=== PATIENT | male | born 1970 | race Caucasian/White ===

== ENCOUNTER → 2020-10-24 11:12 | Outpatient (CLI) | payer OTHER, SELFPAY ==
[2020-10-24 11:58] LABS: Hemoglobin A1C% w Est Avg Glu 10.3 % (4.0-6.0)
[2020-10-24 12:21] LABS: Alanine Aminotransferase 35 IU/L (<50); Albumin 4.5 g/dL (3.5-5.0); Albumin Globulin Ratio 1.6 (1.0-2.8); Alkaline Phosphatase 59 U/L (38-126); Aspartate Aminotransferase 23 IU/L (17-59); Bilirubin Total 0.4 mg/dL (0.2-1.3); Blood Urea Nitrogen 15 mg/dL (9-20); Carbon Dioxide 29 mmol/L (22-32); Chloride 98 mmol/L (98-107); Cholesterol 202 mg/dL (140-199); Estimated Glomerular Filt Rate > 60.0 mL/min (>60); Globulin 2.9 g/dL (1.7-4.1); Glucose 280 mg/dL (70-100); HDL Cholesterol 34 mg/dL (40-60); HEMOLYSIS < 15 (0-50); Potassium 4.6 mmol/L (3.4-5.1); Sodium 136 mmol/L (137-145); Total Protein 7.4 g/dL (6.3-8.2); Uric Acid 7.7 mg/dL (3.5-8.5)
[2020-10-24 12:37] LABS: Triglycerides 692 mg/dL (35-150)
[2020-10-24 12:45] LABS: Creatinine Urine Random 299.4 mg/dL
[2020-10-24 12:48] LABS: Microalbumi Creatinin Ratio Ur 28.3 ug/mg CR (<30); Microalbumin Urine Random 8.5 mg/dL (0-1.6)
== END ==
PROVIDERS: PCP Student in an Organized Health Care Education/Training Program; Referring Provider Student in an Organized Health Care Education/Training Program; Visit Provider Student in an Organized Health Care Education/Training Program
DX: E11.9 Type 2 diabetes mellitus without complications (principal); F10.20 Alcohol dependence, uncomplicated; I10 Essential (primary) hypertension; M10.9 Gout, unspecified
CPT/HCPCS: 36415; 80053; 80061; 82043; 82570; 83036; 84550

== ENCOUNTER → 2020-11-08 15:32 | Outpatient (CLI) | payer OTHER, SELFPAY ==
[2020-11-08 16:32] LABS: BUN Creatinine Ratio 17.9 (6-22); Blood Urea Nitrogen 30 mg/dL (9-20); Estimated Glomerular Filt Rate 43.3 mL/min (>60)
[2020-11-12 02:10] LABS: Metanephrine,Plasma 11.8 pg/mL (0.0-88.0)
== END ==
PROVIDERS: PCP Student in an Organized Health Care Education/Training Program; Referring Provider Student in an Organized Health Care Education/Training Program; Visit Provider Student in an Organized Health Care Education/Training Program
DX: E11.42 Type 2 diabetes mellitus with diabetic polyneuropathy (principal); E11.69 Type 2 diabetes mellitus with other specified complication; E78.5 Hyperlipidemia, unspecified; Z79.899 Other long term (current) drug therapy; I16.1 Hypertensive emergency
CPT/HCPCS: 36415; 80061; 80076; 82565; 83036; 83835; 84520

== ENCOUNTER → 2020-12-06 09:41 | Outpatient (CLI) | payer OTHER, SELFPAY ==
[2020-12-06 11:35] LABS: Appearance Urine UA CLEAR; BUN Creatinine Ratio 22.1 (6-22); Bilirubin Urine UA NEGATIVE (NEGATIVE); Blood Urea Nitrogen 19 mg/dL (9-20); Color Urine UA YELLOW; Estimated Glomerular Filt Rate > 60.0 mL/min (>60); Glucose Urine UA NEGATIVE (Negative); Ketones Urine UA NEGATIVE (NEGATIVE); Leukocyte Esterase Urine UA NEGATIVE (NEGATIVE); Nitrite Urine UA NEGATIVE (Negative); Occult Blood Urine UA 2+ (Negative); Protein Urine UA NEGATIVE (Negative); Specific Gravity Urine UA >=1.030 (1.000-1.035); Urobilinogen Urine UA 0.2 E.U./dL (0.2)
[2020-12-06 11:36] LABS: Bacteria Urine None Seen; WBC Urine None Seen (0-5/HPF)
[2020-12-06 11:42] LABS: Amorphous Sediment Urine 2+; Culture Indicated Urine Cult Not Indicated; RBC Urine 0-1/HPF (0-5/HPF)
== END ==
PROVIDERS: PCP Student in an Organized Health Care Education/Training Program; Referring Provider Student in an Organized Health Care Education/Training Program; Visit Provider Student in an Organized Health Care Education/Training Program
DX: E11.42 Type 2 diabetes mellitus with diabetic polyneuropathy (principal); N17.9 Acute kidney failure, unspecified
CPT/HCPCS: 36415; 80061; 80076; 81003; 81015; 82565; 83036; 84520

== ENCOUNTER 2021-01-22 09:40 | Day surgery (SDC) | payer OTHER, SELFPAY ==
[2021-01-22 10:14] VITALS: BP 148/91; PULSE 72; RESP 18; TEMP 36.2; O2SAT 98; BMI 35.1
[2021-01-22 10:57] LABS: COVID19 -Nasal RAPID Negative (Negative)
--- NOTE | 2021-01-22 11:04 | PM.HP.1 ---
History of Present Illness History of Present Illness Date Patient Seen: 01/22/21 Time Patient Seen: 11:04 Chief complaint: SCREENING COLONOSCOPY Narrative: The patient presents for colorectal sreening. They have never had any previous examination for such. No personal or family history of colon cancer. On further history denies any recent gastrointestinal symptoms. No nausea, vomiting, abdominal pain, loss of appetite, unexplained weight loss, change in bowel habits, diarrhea, constipation, melena, hematochezia, or bright red blood per rectum. Patient History Medical History ADHD (~1978) Alcoholism in remission Essential hypertension (01/27/17) Hematuria Hyperlipidemia associated with type 2 diabetes mellitus Hypertensive emergency Obesity (BMI 30.0-34.9) Type 2 diabetes mellitus Family & Social History Family History Mother Diabetes mellitus History of heart disease Hypertension Grandfather Cancer Hypertension Grandmother History of heart disease Grandfather Hypertension History of heart disease Social History: household members spouse Tobacco & Substance use: Smoking Status Former smoker alcohol intake current alcohol intake frequency 0-2 drinks per day Substance Use Type marijuana Meds Home Medications and Allergies Home Medications Medication Instructions Recorded Confirmed Type aspirin 81 mg tablet,delayed 81 mg PO DAILY 10/24/20 01/22/21 History release metformin 500 mg tablet 1,000 mg PO BID tab 10/24/20 01/22/21 History glipizide 10 mg tablet, extended 10 mg PO DAILY #90 tab 10/27/20 01/22/21 Rx release 24 hr pravastatin 20 mg tablet 20 mg PO BEDTIME #90 tab 10/27/20 01/22/21 Rx lisinopril 10 mg tablet 10 mg PO DAILY #30 tab 12/19/20 01/22/21 Rx Allergies Allergy/AdvReac Type Severity Reaction Status Date / Time No Known Drug Allergies Allergy Verified 01/22/21 10:50 Review of Systems Review of Systems ROS: Yes All systems reviewed with the patient and are negative except as otherwise documented Exam Vital Signs (past 8 hours): - 01/22/21 10:14 Temperature 97.2 F L Pulse Rate 72 Respiratory Rate 18 Blood Pressure 148/91 H Pulse Oximetry 98 Oxygen Delivery Method Room Air Narrative Exam Narrative: GENERAL-well developed adult male, no acute distress HEENT-no scleral icterus, hearing intact NECK-no JVD, trachea midline CVS- regular rate, no peripheral edema RESP-unlabored respiratory effort, no audible wheezing GI-soft, nontender nondistended MSK-no cyanosis or clubbing, extremities without deformity SKIN-warm, dry NEURO-alert and oriented, no focal deficits PYSCH-Appropriate mood and affect Objective Labs Labs: Laboratory Results - last 24 hr 01/22/21 10:23 SARS-CoV-2 (PCR) Negative Assessment & Plan Assessment & Plan narrative: The patient requires colorectal screening and colonoscopy is recommended. Technical details were discussed. Risks, benefits, alternatives explained. Risks including but not limited to myocardial infarction, aspiration, bleeding, pain, missed lesion, incomplete examination, need for further radiographic studies, colonic perforation, and need for major abdominal surgery were discussed. All questions were answered to their satisfaction, and they are in agreement with this plan.
[2021-01-22] MEDS: fentaNYL 250 MCG/5 ML INJ IV (11:20)
[2021-01-22] MEDS: MIDAZOLAM 5 MG/5 ML VIAL IV (11:20)
[2021-01-22 11:35] VITALS: BP 110/64; PULSE 91; RESP 17; TEMP 36.1; O2SAT 88
--- NOTE | 2021-01-22 11:37 | PM.OP.ENDO ---
Operative Date/Time/Diagnoses Date of procedure: 01/22/21 Time of procedure: 11:37 Pre-op diagnosis: Screening colonoscopy Post-op diagnosis: same Procedure & Clinicians Study performed: Colonoscopy Same procedure as scheduled: Yes Indications: Screening colonoscopy Surgeon: Valeriy Dash Procedure Notes Procedure in detail: Medications: Conscious sedation using 8 mg IV midazolam and 200 mcg IV of fentanyl The history and physical was performed/updated and the patient is ASA class is 2. The procedure was discussed in detail with the patient. Potential risks complications including infection, bleeding, missed diagnosis, perforation, need for surgery, and were explained. Their questions were answered and informed consent was obtained. Patient was brought to the procedure room and placed standard monitoring equipment. The patient's vital signs were monitored continuously throughout the entire procedure. Prior to starting time-out was performed. The patient was placed in the left lateral recumbent position. Procedural sedation was administered. Examination began with a thorough inspection of the perianal area there was no evidence of fissures, fistulae, external hemorrhoids or cutaneous malignancy. The colonoscopy scope was then placed into the anal canal and was advanced to the cecum, which was identified by the ileocecal valve, the appendiceal orifice and the confluence of the taenia. The scope was then slowly withdrawn examining colon thoroughly in all directions, irrigating it of any residual stool. 1. No masses or polyps 2. Sigmoid diverticulosis 3. Grade 2 internal hemorrhoids The patient tolerated the procedure well. They will be discharged once criteria are met. The prep was of fair quality. The withdrawl time was 6 minutes. The sedation time was 20 minutes. Specimen(s): none sent Complications: none Impression: Normal colonoscopy Post-procedure Recommendations: Colonscopy in 10 years Disposition: same day surgery
[2021-01-22 11:40] VITALS: BP 106/59; PULSE 85; RESP 12; O2SAT 94
[2021-01-22 11:45] VITALS: BP 116/75; PULSE 99; RESP 16; O2SAT 96
[2021-01-22 11:50] VITALS: BP 124/71; PULSE 93; RESP 14; O2SAT 94
[2021-01-22 11:55] VITALS: BP 117/62; PULSE 94; RESP 94; O2SAT 14
== END 2021-01-22 12:10 | disposition home or self-care (01) ==
PROVIDERS: PCP Student in an Organized Health Care Education/Training Program; Referring Provider Surgery; Visit Provider Surgery
PROC: 0DJD8ZZ Inspection of Lower Intestinal Tract, Via Natural or Artificial Opening Endoscopic (ICD-10-PCS; CPT 45378; principal; 2021-01-22 10:45)
DX: Z12.11 Encounter for screening for malignant neoplasm of colon (principal); Z20.822 Contact with and (suspected) exposure to COVID-19; E11.9 Type 2 diabetes mellitus without complications; Z79.84 Long term (current) use of oral hypoglycemic drugs; I10 Essential (primary) hypertension; E66.9 Obesity, unspecified; E78.5 Hyperlipidemia, unspecified; K57.30 Diverticulosis of large intestine without perforation or abscess without bleeding; K64.1 Second degree hemorrhoids
CPT/HCPCS: 45378; 82962; 87635; 99152; J2250; J3010

== ENCOUNTER → 2021-05-14 10:12 | Outpatient (CLI) | payer OTHER, SELFPAY ==
[2021-05-14 12:11] LABS: Alanine Aminotransferase 42 IU/L (<50); Albumin 4.4 g/dL (3.5-5.0); Albumin Globulin Ratio 1.6 (1.0-2.8); Alkaline Phosphatase 39 U/L (38-126); Aspartate Aminotransferase 30 IU/L (17-59); Bilirubin Total 0.7 mg/dL (0.2-1.3); Bilirubin Unconjugated 0.7 mg/dL (0.0-1.1); Cholesterol 180 mg/dL (140-199); Globulin 2.8 g/dL (1.7-4.1); HDL Cholesterol 39 mg/dL (40-60); HEMOLYSIS < 15 (0-50); LDL Cholesterol Calculated 93 mg/dL (<100); Total Protein 7.2 g/dL (6.3-8.2); Triglycerides 241 mg/dL (35-150)
[2021-05-14 12:19] LABS: Hemoglobin A1C% w Est Avg Glu 6.6 % (4.0-6.0)
== END ==
PROVIDERS: PCP Student in an Organized Health Care Education/Training Program; Referring Provider Student in an Organized Health Care Education/Training Program; Visit Provider Student in an Organized Health Care Education/Training Program
DX: E11.42 Type 2 diabetes mellitus with diabetic polyneuropathy (principal); E66.9 Obesity, unspecified; I10 Essential (primary) hypertension
CPT/HCPCS: 36415; 80061; 80076; 83036

== ENCOUNTER → 2021-11-02 11:01 | Outpatient (CLI) | payer OTHER, SELFPAY ==
[2021-11-02 18:47] LABS: BUN Creatinine Ratio 20.5 (6-22); Blood Urea Nitrogen 18 mg/dL (9-20); Estimated Glomerular Filt Rate > 60.0 mL/min (>60)
[2021-11-02 18:50] LABS: Hemoglobin A1C% w Est Avg Glu 7.6 % (4.0-6.0)
[2021-11-02 19:13] LABS: Microalbumi Creatinin Ratio Ur 33.6 ug/mg CR (<30)
== END ==
PROVIDERS: PCP Student in an Organized Health Care Education/Training Program; Visit Provider Student in an Organized Health Care Education/Training Program
DX: E11.42 Type 2 diabetes mellitus with diabetic polyneuropathy (principal); I10 Essential (primary) hypertension
CPT/HCPCS: 82043; 82565; 82570; 83036; 84520

== ENCOUNTER 2022-10-23 10:21 | Emergency (ER) | payer OTHER, SELFPAY ==
[2022-10-23] VITALS (15 sets, daily range): BP systolic 92–123; BP diastolic 54–67; PULSE 90–120; RESP 24–36; TEMP 37.8; O2SAT 96–100; BMI 34.0
--- NOTE | 2022-10-23 10:59 | DI.RAD.S_ITS ---
PROCEDURE: XR CHEST 1V INDICATIONS: suspected sepsis TECHNIQUE: One view of the chest was acquired. COMPARISON: None. FINDINGS: Surgical changes and devices: None. Lungs and pleura: Lungs are clear. No pleural effusions or pneumothorax. Mediastinum: Mediastinal contours appear normal. Heart size is normal. Bones and chest wall: No suspicious bony lesions. Overlying soft tissues appear unremarkable. IMPRESSION: No acute cardiopulmonary pathology. Dictated by: Jeff Rodgers M.D. on 10/23/2022 at 11:26 Approved by: Jeff Rodgers M.D. on 10/23/2022 at 11:33
[2022-10-23 11:25] LABS: Add Manual Diff / Slide Review NO; Basophils Absolute Auto 100 /uL (0-100); Basophils Percent Auto 0.5 % (0-2); Eosinophils Absolute Auto 0 /uL (0-450); Eosinophils Percent Auto 0.1 % (2-4); Hematocrit 25.1 % (41-53); Hemoglobin 8.2 g/dL (13.5-17.5); Lymphocytes Absolute Auto 500 /uL (1100-4500); Lymphocytes Percent Auto 3.7 % (25-40); Mean Corpuscular HGB Conc 32.5 % (30-36); Mean Corpuscular Volume 79.8 fL (80-100); Monocytes Absolute Auto 1400 /uL (0-900); Monocytes Percent Auto 11.6 % (3-14); Neutrophils Absolute Auto 10500 /uL (1500-7000); Neutrophils Percent Auto 84.1 % (50-75); Platelet Count 283 X10^3/uL (150-400); Red Blood Cell Count 3.14 X10^6/uL (4.5-5.9); Red Cell Distribution Width 17.2 % (11.6-14.8); White Blood Cell Count 12.5 X10^3/uL (4.5-11.0)
[2022-10-23 11:32] LABS: INR 1.2 (0.9-1.3); Prothrombin Time 14.3 SECONDS (10.1-12.7)
[2022-10-23 11:34] LABS: PTT Partial Thromboplastin Tim 29 SECONDS (26-36)
[2022-10-23 11:38] LABS: Alanine Aminotransferase 108 IU/L (<50); Albumin 3.8 g/dL (3.5-5.0); Alkaline Phosphatase 113 U/L (38-126); Aspartate Aminotransferase 81 IU/L (17-59); BUN Creatinine Ratio 15.6 (6-22); Bilirubin Total 0.6 mg/dL (0.2-1.3); Blood Urea Nitrogen 41 mg/dL (9-20); Calcium 8.8 mg/dL (8.4-10.2); Carbon Dioxide 16 mmol/L (22-32); Chloride 89 mmol/L (98-107); Estimated Glomerular Filt Rate 28 mL/min (>60); Globulin 3.9 g/dL (1.7-4.1); Glucose 397 mg/dL (70-100); HEMOLYSIS < 15 (0-50); Lactate (Lactic Acid) 1.6 mmol/L (0.7-2.1); Lipase 164 U/L (23-300); Potassium 4.6 mmol/L (3.4-5.1); Sodium 120 mmol/L (137-145); Total Protein 7.7 g/dL (6.3-8.2)
[2022-10-23 11:53] LABS: Procalcitonin 21.8 ng/mL (<0.5)
[2022-10-23 12:08] LABS: HCO3 VBG 17 mmol/L (24-28); Oxygen Saturation VBG 81 % (70-75); PCO2 VBG 26.2 mmHg (45-50); PO2 VBG 43 mmHg (35-45); Total CO2 VBG 17 mmol/L (24-29); pH VBG 7.41 (7.33-7.43)
[2022-10-23 12:26] LABS: COVID19 -Nasal RAPID Negative (Negative)
[2022-10-23] MEDS: SODIUM CHLORIDE 0.9% 1,000 ML 1000 ML IV (12:44)
--- NOTE | 2022-10-23 12:45 | ED.SEPSIS ---
HPI - Sepsis General Chief Complaint: Fever Mode of arrival: Family Vehicle Source: patient Limitations: no limitations Evaluation Sepsis Screen: Possible Sepsis Risk Sepsis Infection Criteria Present: Suspected New Infection Narrative: This is a 52-year-old male with history of diabetes, hypertension, dyslipidemia who is had a persistent chronic wound for several weeks according to the patient. He states his great toe and the ball of his foot have had a wound he is had redness, he is had drainage which he states is purulent, foul-smelling and he drains 3 or 4 times daily. Patient states he has been trying to clean it regularly and bandaged. He can walk on he states it is not very uncomfortable. States he does have decreased sensation in his feet. Patient has not seen anyone for this. 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 Patient states he has not had any fevers. He denies chest pain or shortness of breath. He is had some nausea but no vomiting. Denies diarrhea constipation, no dysuria urgency frequency. He denies any abdominal or flank pain. He has had some chronic back pain which he states is his typical. He states he is not on insulin and he mentions that his medications are lisinopril, metformin, pravastatin and glucosamine. He denies any prior surgeries. No known drug allergies. He denies tobacco he states occasional alcohol but not regularly. No illicit. Primary care is Dr. Low. He is quite reluctant to be hospitalized today secondary to having to run his business and his dog is currently in his car. Review of Systems Review of Systems ROS Unobtainable: All systems reviewed & are unremarkable except as noted in HPI and below Patient History Medical History ADHD (~1978) Alcoholism in remission Essential hypertension (01/27/17) Hematuria Hyperlipidemia associated with type 2 diabetes mellitus Hypertensive emergency Obesity (BMI 30.0-34.9) Type 2 diabetes mellitus Family History Mother Diabetes mellitus History of heart disease Hypertension Grandfather Cancer Hypertension Grandmother History of heart disease Grandfather Hypertension History of heart disease Social History household members: spouse Smoking Status: Former smoker alcohol intake: current Smoking Status: Former smoker tobacco type: cigarettes alcohol intake frequency: holidays/special occasions only Substance Use Type: does not use Exam Narrative Exam Narrative: GENERAL: Alert and oriented x three, male in moderate distress. Patient is anxious about being hospitalized. He has multiple concerns about his business and dog. HEENT: Head normocephalic, atraumatic, EOMI, pupils reactive, face symmetric, moist mucous membranes NECK: Supple, full range of motion CARDIOVASCULAR: Regular rate and rhythm without murmurs, rubs or gallops. RESPIRATORY: Breath sounds equal bilaterally, no wheezes rales or rhonchi. No tachypnea accessory muscle use. ABDOMEN: Soft, nontender. Normoactive bowel sounds all 4 quadrants. No guarding or rebound, rigidity, no mass : No CVA tenderness EXTREMITIES: Normal range of motion, no clubbing. Patient has mild trace edema bilaterally. Patient's left foot he has a large ulcer on the bottom of his foot that is approximately 3-4 cm in circumference that appears deep into the subcutaneous bone is not clearly exposed there is purulent drainage and a foul odor. The distal end of the great toe has breakdown of the skin with discoloration but no complete right down into the subcutaneous tissue or bone. Patient has erythema tracking from the underside of the foot over the dorsum towards his ankle. He is nontender. He does have cap refill less than 2 seconds. He has normal range of motion. NEUROLOGICAL: Cranial nerves II through XII grossly intact. Moving all extremities SKIN: Warm, dry, no petechiae, no rashes or lesions other than noted above. Initial Vital Signs Initial Vital Signs: Vital Signs Temperature 100.1 F H 10/23/22 10:53 Pulse Rate 120 H 10/23/22 10:53 Respiratory Rate 24 10/23/22 10:53 Blood Pressure 92/59 L 10/23/22 10:53 Pulse Oximetry 100 10/23/22 10:53 Oxygen Delivery Method Room Air 10/23/22 10:53 Course Orders Ordered: ED Orders 10/23/22 10:54 VBG [Venous Blood Gas] Stat 10/23/22 10:59 XR chest 1V Stat EKG-12 Lead Stat RT Consult Eval and Treat NOW 10/23/22 11:15 Complete Blood Count AUTO DIFF Stat Comprehensive Metabolic Panel Stat Lactate (Lactic Acid) Stat Lipase Stat PTT Partial Thromboplastin Enoch Stat Procalcitonin Stat Prothrombin Time INR Stat 10/23/22 11:34 Blood Culture Stat 10/23/22 12:02 COVID19 -Nasal RAPID Stat 10/23/22 12:07 Consult to [employer] WORK[employer] SUPERVISOR - Senior Data Integration Developer Stat 10/23/22 13:00 XR foot LT min 3V Stat 10/23/22 13:05 US renal complete Stat 10/23/22 13:09 Wound Culture and Gram Stain Stat 10/23/22 14:47 Creatinine Urine Random Stat Sodium Urine Random Stat UA Complete [Urinalysis and Microscopic] Stat Urine Culture Stat Discontinued Medications Sodium Chloride (Normal Saline 0.9%) 1,000 mls @ 1,000 mls/hr IV BOLUS ONE Stop: 10/23/22 11:58 Last Infusion: 10/23/22 16:27 Dose: 0 mls/hr Documented By: Admin: 10/23/22 12:44 Dose: 1,000 mls/hr Documented By: SALVADOR Vancomycin HCl/Dextrose (Vancomycin) 1,500 mg in 300 mls @ 200 mls/hr IV NOW ONE Stop: 10/23/22 14:34 Last Infusion: 10/23/22 16:27 Dose: 200 mls/hr Documented By: Admin: 10/23/22 14:36 Dose: 200 mls/hr Documented By: SANDRA Piperacillin Sod/Tazobactam (Sod 4.5 gm/ Sodium Chloride) 100 mls @ 200 mls/hr IV NOW ONE Stop: 10/23/22 13:06 Last Infusion: 10/23/22 14:09 Dose: 0 mls/hr Documented By: Admin: 10/23/22 13:37 Dose: 200 mls/hr Documented By: SALVADOR Ondansetron HCl (Ondansetron 4 Mg Odt) 4 mg SL NOW PRN PRN Reason: Nausea And Vomiting Ondansetron HCl (Ondansetron 4 Mg/2 Ml Inj) 4 mg IV NOW PRN PRN Reason: Nausea And Vomiting Vital Signs Vital signs: Vital Signs - 8 hr 10/23/22 12:00 10/23/22 12:00 10/23/22 12:30 Pulse Rate 104 H Respiratory Rate Blood Pressure 94/55 L 105/65 Pulse Oximetry 97 10/23/22 12:30 10/23/22 13:00 10/23/22 13:00 Pulse Rate 102 H 97 H Respiratory Rate Blood Pressure 113/67 Pulse Oximetry 96 98 10/23/22 13:30 10/23/22 13:30 10/23/22 14:00 Pulse Rate 96 H Respiratory Rate Blood Pressure 113/66 114/66 Pulse Oximetry 97 10/23/22 14:00 10/23/22 14:30 10/23/22 14:30 Pulse Rate 97 H 102 H Respiratory Rate Blood Pressure 110/62 Pulse Oximetry 10/23/22 15:00 10/23/22 15:00 10/23/22 15:30 Pulse Rate 90 Respiratory Rate 24 Blood Pressure 115/60 123/65 Pulse Oximetry 10/23/22 15:30 10/23/22 16:00 10/23/22 16:01 Pulse Rate 91 H 99 H 98 H Respiratory Rate 33 H 36 H 30 H Blood Pressure Pulse Oximetry 10/23/22 16:01 10/23/22 16:15 10/23/22 16:15 Pulse Rate 93 H Respiratory Rate Blood Pressure 97/54 L 108/59 L Pulse Oximetry 98 Sepsis Evaluation (ED) Triage Screening Sepsis Screen: Possible Sepsis Risk Level 1 - Infection Sepsis Infection Criteria Present: Suspected New Infection Level 2 - SIRS Sepsis SIRS Criteria Present: WBC < 4k or > 12k or Bands > 10% and Pulse > 90 bpm Response It is my opinion that his patient have a likely infectious etiology for meeting sepsis criteria: Does Fluid calculation based on 30 mL/kg within 1hr of criteria: Other (Patient has a hyponatremia and 30 cc/kilos fluid bolus can be detrimental if overcorrected too quickly.) Antibiotics initiated within 1 hr of Sepis dx: Yes Tissue Perfusion Reassessed within 6 hrs of infusion start time: No (patient left ama) MDM - Sepsis Lab Data 10/23/22 11:15 10/23/22 11:15 Labs: Lab Results 10/23/22 10/23/22 10/23/22 Range/Units 10:54 11:15 11:15 WBC 12.5 H (4.5-11.0) X10^3/uL RBC 3.14 L (4.5-5.9) X10^6/uL Hgb 8.2 L (13.5-17.5) g/dL Hct 25.1 L (41-53) % MCV 79.8 L (80-100) fL MCH 26.0 (26-34) PG MCHC 32.5 (30-36) % RDW 17.2 H (11.6-14.8) % Plt Count 283 (150-400) X10^3/uL Neut % (Auto) 84.1 H (50-75) % Lymph % (Auto) 3.7 L (25-40) % Garvin % (Auto) 11.6 (3-14) % Eos % (Auto) 0.1 L (2-4) % Baso % (Auto) 0.5 (0-2) % Neut # (Auto) 17265 H (3883-1904) /uL Lymph # (Auto) 500 L (7460-3677) /uL Garvin # (Auto) 1400 H (0-900) /uL Eos # (Auto) 0 (0-450) /uL Baso # (Auto) 100 (0-100) /uL PT 14.3 H (10.1-12.7) SECONDS INR 1.2 (0.9-1.3) APTT 29 (26-36) SECONDS VBG pH 7.41 (7.33-7.43) VBG pCO2 26.2 L (45-50) mmHg VBG pO2 43 (35-45) mmHg VBG HCO3 17 L (24-28) mmol/L VBG Total CO2 17 L (24-29) mmol/L VBG O2 Saturation 81 H (70-75) % VBG Base Excess -8.0 L (0-4) mmol/L FiO2 20 Sodium (137-145) mmol/L Potassium (3.4-5.1) mmol/L Chloride (98-107) mmol/L Carbon Dioxide (22-32) mmol/L BUN (9-20) mg/dL Creatinine (0.66-1.25) mg/dL Estimated GFR (>60) mL/min BUN/Creatinine Ratio (6-22) Glucose (70-100) mg/dL Lactate (0.7-2.1) mmol/L Calcium (8.4-10.2) mg/dL Total Bilirubin (0.2-1.3) mg/dL AST (17-59) IU/L ALT (<50) IU/L Alkaline Phosphatase (38-126) U/L Total Protein (6.3-8.2) g/dL Albumin (3.5-5.0) g/dL Globulin (1.7-4.1) g/dL Albumin/Globulin Ratio (1.0-2.8) Lipase (23-300) U/L Procalcitonin (<0.5) ng/mL Urine Color Urine Appearance Urine pH (4.5-8.0) Ur Specific [place] (1.000-1.035) Urine Protein (Negative) Urine Glucose (UA) (Negative) g/dL Urine Ketones (NEGATIVE) Urine Occult Blood (Negative) Urine Nitrate (Negative) Urine Bilirubin (NEGATIVE) Urine Urobilinogen (0.2) E.U./dL Ur Leukocyte Esterase (NEGATIVE) Urine RBC (0-5/HPF) Urine WBC (0-5/HPF) Ur Squamous Epith Cells (0-5/HPF) Amorphous Sediment Urine Bacteria (None) Ur Culture Indicated? Ur Random Sodium (30-90) mmol/L Urine Creatinine mg/dL SARS-CoV-2 (PCR) (Negative) 10/23/22 10/23/22 10/23/22 Range/Units 11:15 11:15 12:02 WBC (4.5-11.0) X10^3/uL RBC (4.5-5.9) X10^6/uL Hgb (13.5-17.5) g/dL Hct (41-53) % MCV (80-100) fL MCH (26-34) PG MCHC (30-36) % RDW (11.6-14.8) % Plt Count (150-400) X10^3/uL Neut % (Auto) (50-75) % Lymph % (Auto) (25-40) % Garvin % (Auto) (3-14) % Eos % (Auto) (2-4) % Baso % (Auto) (0-2) % Neut # (Auto) (3255-1227) /uL Lymph # (Auto) (8532-6528) /uL Garvin # (Auto) (0-900) /uL Eos # (Auto) (0-450) /uL Baso # (Auto) (0-100) /uL PT (10.1-12.7) SECONDS INR (0.9-1.3) APTT (26-36) SECONDS VBG pH (7.33-7.43) VBG pCO2 (45-50) mmHg VBG pO2 (35-45) mmHg VBG HCO3 (24-28) mmol/L VBG Total CO2 (24-29) mmol/L VBG O2 Saturation (70-75) % VBG Base Excess (0-4) mmol/L FiO2 Sodium 120 L (137-145) mmol/L Potassium 4.6 (3.4-5.1) mmol/L Chloride 89 L (98-107) mmol/L Carbon Dioxide 16 L (22-32) mmol/L BUN 41 H (9-20) mg/dL Creatinine 2.62 H (0.66-1.25) mg/dL Estimated GFR 28 L (>60) mL/min BUN/Creatinine Ratio 15.6 (6-22) Glucose 397 H (70-100) mg/dL Lactate 1.6 (0.7-2.1) mmol/L Calcium 8.8 (8.4-10.2) mg/dL Total Bilirubin 0.6 (0.2-1.3) mg/dL AST 81 H (17-59) IU/L ALT 108 H (<50) IU/L Alkaline Phosphatase 113 (38-126) U/L Total Protein 7.7 (6.3-8.2) g/dL Albumin 3.8 (3.5-5.0) g/dL Globulin 3.9 (1.7-4.1) g/dL Albumin/Globulin Ratio 1.0 (1.0-2.8) Lipase 164 (23-300) U/L Procalcitonin 21.8 H (<0.5) ng/mL Urine Color Urine Appearance Urine pH (4.5-8.0) Ur Specific [place] (1.000-1.035) Urine Protein (Negative) Urine Glucose (UA) (Negative) g/dL Urine Ketones (NEGATIVE) Urine Occult Blood (Negative) Urine Nitrate (Negative) Urine Bilirubin (NEGATIVE) Urine Urobilinogen (0.2) E.U./dL Ur Leukocyte Esterase (NEGATIVE) Urine RBC (0-5/HPF) Urine WBC (0-5/HPF) Ur Squamous Epith Cells (0-5/HPF) Amorphous Sediment Urine Bacteria (None) Ur Culture Indicated? Ur Random Sodium (30-90) mmol/L Urine Creatinine mg/dL SARS-CoV-2 (PCR) Negative (Negative) 10/23/22 10/23/22 Range/Units 14:47 14:47 WBC (4.5-11.0) X10^3/uL RBC (4.5-5.9) X10^6/uL Hgb (13.5-17.5) g/dL Hct (41-53) % MCV (80-100) fL MCH (26-34) PG MCHC (30-36) % RDW (11.6-14.8) % Plt Count (150-400) X10^3/uL Neut % (Auto) (50-75) % Lymph % (Auto) (25-40) % Garvin % (Auto) (3-14) % Eos % (Auto) (2-4) % Baso % (Auto) (0-2) % Neut # (Auto) (3628-7388) /uL Lymph # (Auto) (4547-1301) /uL Garvin # (Auto) (0-900) /uL Eos # (Auto) (0-450) /uL Baso # (Auto) (0-100) /uL PT (10.1-12.7) SECONDS INR (0.9-1.3) APTT (26-36) SECONDS VBG pH (7.33-7.43) VBG pCO2 (45-50) mmHg VBG pO2 (35-45) mmHg VBG HCO3 (24-28) mmol/L VBG Total CO2 (24-29) mmol/L VBG O2 Saturation (70-75) % VBG Base Excess (0-4) mmol/L FiO2 Sodium (137-145) mmol/L Potassium (3.4-5.1) mmol/L Chloride (98-107) mmol/L Carbon Dioxide (22-32) mmol/L BUN (9-20) mg/dL Creatinine (0.66-1.25) mg/dL Estimated GFR (>60) mL/min BUN/Creatinine Ratio (6-22) Glucose (70-100) mg/dL Lactate (0.7-2.1) mmol/L Calcium (8.4-10.2) mg/dL Total Bilirubin (0.2-1.3) mg/dL AST (17-59) IU/L ALT (<50) IU/L Alkaline Phosphatase (38-126) U/L Total Protein (6.3-8.2) g/dL Albumin (3.5-5.0) g/dL Globulin (1.7-4.1) g/dL Albumin/Globulin Ratio (1.0-2.8) Lipase (23-300) U/L Procalcitonin (<0.5) ng/mL Urine Color Yellow Urine Appearance Sl cloudy Urine pH 5.0 (4.5-8.0) Ur Specific [place] 1.015 (1.000-1.035) Urine Protein 1+ H (Negative) Urine Glucose (UA) 2+ H (Negative) g/dL Urine Ketones Negative (NEGATIVE) Urine Occult Blood 3+ H (Negative) Urine Nitrate Negative (Negative) Urine Bilirubin Negative (NEGATIVE) Urine Urobilinogen 0.2 (0.2) E.U./dL Ur Leukocyte Esterase Negative (NEGATIVE) Urine RBC 10-30/hpf H (0-5/HPF) Urine WBC 5-10/hpf H (0-5/HPF) Ur Squamous Epith Cells 1-5 /hpf (0-5/HPF) Amorphous Sediment 3+ Urine Bacteria Moderate (10-30) H (None) Ur Culture Indicated? Specimen cultured Ur Random Sodium 12 L (30-90) mmol/L Urine Creatinine 124.1 mg/dL SARS-CoV-2 (PCR) (Negative) ECG Data Attestation: I personally reviewed and interpreted this ECG as follows: Interpretation: Sinus rhythm rate of 92 GA 176 QRS of 102 and QTC of 427. No acute ST changes appreciated. 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 Lives on [facility]. MDM Narrative Medical decision making narrative: This is a 52-year-old male who presents with complaint infection in his left foot. Patient has not obviously infected diabetic ulcer maybe developing an osteomyelitis based on his examination in the depth his of infection. Culture was sent, patient has a white count of 12, he is tachycardic 104 blood pressures have been soft in the 90s to 115 range, and a temperature of 100.1?. He is anemic with a hemoglobin of 8 no priors for baseline, leftward shift no bandemia appreciated on differential. Coags are negative, patient appears to have acute kidney injury a year ago his creatinine was 0.88 today it is 2.62 with a BUN of 41, bicarb of 16 sodium of 120 and were corrected for hyperglycemia as 125-127. Blood glucose is 397 on serum labs, VBG shows a pH of 7.41 so he is not acidotic but otherwise is meeting DKA criteria with a anion gap of 20 when sodium is corrected. Potassium is appropriate at 4.6 LFTs show [birth year]18/1980, alk-phos and lipase are negative. Procalcitonin is 21 lactate is negative at 1.6. Patient is COVID negative. Chest x-ray was negative. X-ray of the foot shows soft tissue swelling and gas consistent with infection and concerning, no definite bony erosion but probably needs MRI to fully evaluate. Renal ultrasound was obtained secondary to acute kidney injury, this shows mild echogenic renal cortices suggesting medical renal disease. No stones or hydro. Discussed with patient he appears to be septic, hyponatremic with hyperglycemia and does not have DKA but does have acidosis in terms of his bicarb although lactate is appropriate. Patient has multiple concerns about being admitted he realizes he needs treatment and IV antibiotics but would like to return in a couple days. We discussed that he could if we leave him untreated and these worsened including his sodium his glucoses in his infection and that he needs to go to the OR for washout and treatment. Patient does seem competent and appropriate to make these decisions at this time. He was agreeable to additional workup in the department. Wound culture has been sent to evaluate for resistance. Patient and I discussed he can return at any time he is currently leaving against medical advice but he has been informed by myself that he is welcome to return at any time and encouraged to do so as I think he requires admission, fluids, careful monitoring and treatment of his electrolyte abnormalities hypoglycemia sepsis and infection and I am concerned about osteomyelitis in his foot and possibly worsening infection as patient has gas. Patient once again expresses his understanding he does seem appropriate and able to make a decision to leave. Discharge Plan Departure Patient Disposition: Left Against Medical Advice Clinical Impression: Sepsis, Diabetic infection of left foot, Acute renal failure (ARF), Hyperglycemia, Hyponatremia Activity Restrictions/Additional Instructions: It is recommended that you be admitted today you have an infection in your foot that can potentially cause severe injury or over the long-term of the loss of your foot or leg. Your sodium levels very low and this can become dangerous as well either of these problems can kill you. You have been prescribed an antibiotic it is not going to solve or fix this problem today. Please come back as soon as you can or go to the closest emergency department you can not return here. Prescription was sent to [facility] in [place]. Even though you have left against medical advice you are welcome to return at any time for treatment. Prescriptions: New doxycycline hyclate 100 mg tablet 100 mg PO BID Qty: 20 0RF No Action lisinopril 10 mg tablet 10 mg PO DAILY Qty: 90 1RF glipizide 10 mg tablet extended release 24hr 10 mg PO DAILY Qty: 90 1RF Hold Instructions: Needs labs metformin 500 mg tablet 1,000 mg PO BID Qty: 360 1RF Hold Instructions: Needs labs pravastatin 20 mg tablet 20 mg PO BEDTIME Qty: 90 1RF Hold Instructions: Needs labs aspirin 81 mg tablet,delayed release (DR/EC) 81 mg PO DAILY Stand Alone Forms: Against Medical Advice
--- NOTE | 2022-10-23 13:00 | DI.RAD.S_ITS ---
PROCEDURE: XR FOOT LT MIN 3V INDICATIONS: infected wound foot, ball of foot TECHNIQUE: 3 views of the foot were acquired. COMPARISON: None. FINDINGS: Bones: No fractures or dislocations. No suspicious bony lesions. Calcaneal spurring. Soft tissues: There is soft tissue swelling and subcutaneous gas in the medial aspect of the distal left foot and great toe. No tibiotalar joint effusion. Achilles tendon appears normal. IMPRESSION: 1. No definitive bony erosion. Radiographs are, however, not sensitive to detect early osteomyelitis. Recommend MRI with and without contrast or a triple phase bone scan for further evaluation if there is clinical suspicion. 2. Soft tissue swelling and gas in the medial aspect of the distal foot and the great toe, consistent with infection. Dictated by: Daniel Cruz M.D. on 10/23/2022 at 13:28 Approved by: Daniel Cruz M.D. on 10/23/2022 at 13:32
--- NOTE | 2022-10-23 13:05 | DI.US.S_ITS ---
PROCEDURE: US RENAL COMPLETE INDICATIONS: saurav, sepsis, infected db wound foot TECHNIQUE: Real-time scanning was performed of the kidneys and bladder, with image documentation. COMPARISON: None. FINDINGS: Kidneys: Kidneys are normal in size. Right kidney measures 12.8 cm long; left kidney measures 12.5 cm long. Right renal cortical thickness is 1.6 cm; left renal cortical thickness is 1.4 cm. Renal cortices are mildly echogenic. No hydronephrosis or nephrolithiasis. No suspicious solid mass lesions. Bladder: Pre-void bladder volume is 233 mL. The patient did not void. Pre-void images demonstrate no intraluminal masses or stones. On pre-void images, left ureteral jet is noted with color Doppler interrogation. Right ureteral jet is not visualized. (Of note, ureteral jets may not be detectable in up to 25% of cases due to insufficient differences in specific gravity between ureteral and bladder urine). Miscellaneous: No free pelvic fluid. IMPRESSION: 1. Mildly echogenic renal cortices suggesting medical renal disease. 2. No stones or hydronephrosis. 3. Cannot assess postvoid residual. Dictated by: Daniel Cruz M.D. on 10/23/2022 at 13:25 Approved by: Daniel Cruz M.D. on 10/23/2022 at 13:27
[2022-10-23] MEDS: PIPERACILLIN/TAZO 4.5 GM in SODIUM CHLORIDE 0.9% 100 ML IV (13:37)
[2022-10-23] MEDS: VANCOMYCIN 1,500 MG/300 ML PIGGYBACK 200 MG IV (14:36)
[2022-10-23 14:54] LABS: Appearance Urine UA SL CLOUDY; Bilirubin Urine UA NEGATIVE (NEGATIVE); Color Urine UA YELLOW; Glucose Urine UA 2+ g/dL (Negative); Ketones Urine UA NEGATIVE (NEGATIVE); Leukocyte Esterase Urine UA NEGATIVE (NEGATIVE); Nitrite Urine UA NEGATIVE (Negative); Occult Blood Urine UA 3+ (Negative); Protein Urine UA 1+ (Negative); Specific Gravity Urine UA 1.015 (1.000-1.035); Urobilinogen Urine UA 0.2 E.U./dL (0.2)
[2022-10-23 15:19] LABS: Amorphous Sediment Urine 3+; Bacteria Urine Moderate (10-30); RBC Urine 10-30/HPF (0-5/HPF); Squamous Epithelial Cell Urine 1-5 /HPF (0-5/HPF); WBC Urine 5-10/HPF (0-5/HPF)
[2022-10-23 15:20] LABS: Culture Indicated Urine Specimen Cultured
[2022-10-23 16:08] LABS: Creatinine Urine Random 124.1 mg/dL; Sodium Urine Random 12 mmol/L (30-90)
--- NOTE | 2022-10-23 16:11 | CM.SWNOTE ---
ED DCP Note HANDICRAFT OR HOBBY SHOP MANAGER receives consult from RN due to patient's pending admission and patient endorsing preference to leave AMA due to his dog in his car and no dog care set up. Patient is 52 y/o male who resides on [facility] who presents to ED via POV due to concern for left foot leaking fluids. Patient's PCP is Dr. Lozada, patient has [employer] insurance Per ED provider, patient would preferably be admitted due to concern for Sepsis, Diabetic foot infection, ARF, Hyperglycemia, and Hyponatremia. HANDICRAFT OR HOBBY SHOP MANAGER enters room and offers resources and asks if that changes patient's plan of care preference. Patient denies resources and states that he can coordinate with his friends to care for his dog and patient endorses he plans to return to ED by Friday. Plan: Patient to d/c AMA and reports his plan is to return to ED as soon as he can after tending to his dog's and job needs. Sabrina Willis, DIE CAST SUPERVISOR
[2022-10-24 18:52] LABS: Acinetobacter baumannii Not Detected (Not Detect); Enterobacteriaceae species Not Detected (Not Detect); Enterococcus species Not Detected (Not Detect); Listeria monocytogenes Not Detected (Not Detect); Staphylococcus species Not Detected (Not Detect); Streptococcus agalactiae (Gr B Not Detected (Not Detect); Streptococcus pneumonia Not Detected (Not Detect); Streptococcus pyogenes (Gr A) Not Detected (Not Detect)
[2022-10-24 18:53] LABS: Candida albicans Not Detected (Not Detect); Candida glabrata Not Detected (Not Detect); Candida krusei Not Detected (Not Detect); Candida parapsilosis Not Detected (Not Detect); Candida tropicalis Not Detected (Not Detect); E. coli Not Detected (Not Detect); Enterobacter cloacae complex Not Detected (Not Detect); Haemophilus influenzae Not Detected (Not Detect); Neisseria meningitidis Not Detected (Not Detect); Proteus species Not Detected (Not Detect); Pseudomonas aeruginosa Not Detected (Not Detect); Serratia marcescens Not Detected (Not Detect)
[2022-10-24 18:55] LABS: Streptococcus species DETECTED (Not Detect)
[2022-10-25 11:10] LABS: Fractionated Inspired Oxygen 21
== END 2022-10-23 16:29 | disposition left against medical advice (07) ==
PROVIDERS: Emergency Provider Emergency Medicine; PCP Student in an Organized Health Care Education/Training Program
DX: A49.1 Streptococcal infection, unspecified site (principal); A41.9 Sepsis, unspecified organism; E11.628 Type 2 diabetes mellitus with other skin complications; R00.0 Tachycardia, unspecified; D64.9 Anemia, unspecified; N17.9 Acute kidney failure, unspecified; E11.65 Type 2 diabetes mellitus with hyperglycemia; E87.1 Hypo-osmolality and hyponatremia; Z20.822 Contact with and (suspected) exposure to COVID-19
CPT/HCPCS: 36415; 71045; 73630; 76770; 80053; 81001; 82570; 82805; 83605; 83690; 84145; 84300; 85025; 85610; 85730; 87040; 87070; 87075; 87077; 87086; 87147; 87150; 87185; 87186; 87205; 87635; 93005; 93010; 96365; 96366; 96367; 99284; C9803; J2543

== ENCOUNTER 2022-10-27 22:24 | Inpatient (IN) | payer OTHER, SELFPAY ==
--- NOTE | 2022-10-27 23:10 | DI.RAD.S_ITS ---
PROCEDURE: XR FOOT LT MIN 3V INDICATIONS: cellulitis TECHNIQUE: 3 views of the foot were acquired. COMPARISON: [facility], CR, XR FOOT LT MIN 3V, 10/23/2022, 13:11. FINDINGS: Bones: There are lucencies within the 1st metatarsal head with indistinct appearance of the cortex most prominent along the plantar aspect most likely representing osteomyelitis. No fractures or dislocations. Soft tissues: There is soft tissue swelling within the medial forefoot centered at the 1st metatarsophalangeal joint as well as the great toe with multiple foci of soft tissue gas. IMPRESSION: 1. Lucencies within the 1st metatarsal head with cortical erosions most likely representing osteomyelitis. 2. Soft tissue swelling of the medial forefoot including the great toe consistent with history of cellulitis. Foci of soft tissue gas are also demonstrated suggestive of gangrene. Dictated by: Braxton Delong M.D. on 10/28/2022 at 1:14 Approved by: Braxton Delong M.D. on 10/28/2022 at 1:25
--- NOTE | 2022-10-27 23:10 | DI.RAD.S_ITS ---
PROCEDURE: XR CHEST 1V INDICATIONS: sepsis TECHNIQUE: One view of the chest was acquired. COMPARISON: [facility], CR, XR CHEST 1V, 10/23/2022, 11:09. FINDINGS: Surgical changes and devices: None. Lungs and pleura: Lungs are clear. No pleural effusions or pneumothorax. Mediastinum: Mediastinal contours appear normal. Heart size is normal. Bones and chest wall: No suspicious bony lesions. Overlying soft tissues appear unremarkable. IMPRESSION: 1. No acute cardiopulmonary disease. Dictated by: Braxton Delong M.D. on 10/28/2022 at 1:14 Approved by: Braxton Delong M.D. on 10/28/2022 at 1:14
[2022-10-27 23:11] VITALS: BP 92/55; PULSE 101; RESP 16; TEMP 36.9; O2SAT 99; BMI 34.0
[2022-10-27 23:46] LABS: Add Manual Diff / Slide Review NO; Basophils Absolute Auto 0 /uL (0-100); Basophils Percent Auto 0.2 % (0-2); Eosinophils Absolute Auto 100 /uL (0-450); Eosinophils Percent Auto 0.4 % (2-4); Hematocrit 23.1 % (41-53); Hemoglobin 7.6 g/dL (13.5-17.5); Lymphocytes Absolute Auto 800 /uL (1100-4500); Lymphocytes Percent Auto 6.7 % (25-40); Mean Corpuscular HGB Conc 32.7 % (30-36); Mean Corpuscular Hemoglobin 26.1 PG (26-34); Monocytes Absolute Auto 900 /uL (0-900); Monocytes Percent Auto 7.3 % (3-14); Neutrophils Absolute Auto 10200 /uL (1500-7000); Neutrophils Percent Auto 85.4 % (50-75); Platelet Count 440 X10^3/uL (150-400); Red Blood Cell Count 2.89 X10^6/uL (4.5-5.9); Red Cell Distribution Width 17.4 % (11.6-14.8); White Blood Cell Count 11.9 X10^3/uL (4.5-11.0)
[2022-10-28] VITALS (36 sets, daily range): BP systolic 102–129; BP diastolic 53–77; PULSE 78–91; RESP 14–18; TEMP 36.3–37.5; O2SAT 88–98; BMI 34.0
[2022-10-28 00:03] LABS: Lactate (Lactic Acid) 1.1 mmol/L (0.7-2.1)
[2022-10-28 00:04] LABS: Alanine Aminotransferase 77 IU/L (<50); Albumin 3.5 g/dL (3.5-5.0); Albumin Globulin Ratio 0.9 (1.0-2.8); BUN Creatinine Ratio 15.8 (6-22); Bilirubin Total 1.1 mg/dL (0.2-1.3); Blood Urea Nitrogen 30 mg/dL (9-20); Calcium 8.6 mg/dL (8.4-10.2); Carbon Dioxide 15 mmol/L (22-32); Chloride 93 mmol/L (98-107); Creatine Kinase 71 U/L (55-170); Estimated Glomerular Filt Rate 42 mL/min (>60); Globulin 4.1 g/dL (1.7-4.1); Lipase 365 U/L (23-300); Magnesium 1.3 mg/dL (1.6-2.3); Sodium 120 mmol/L (137-145)
[2022-10-28 00:06] LABS: COVID19 -Nasal RAPID Negative (Negative)
[2022-10-28 00:08] LABS: Erythrocyte Sedimentation Rate 6 MM/HR (0-15); HEMOLYSIS 134 (0-50)
[2022-10-28 00:09] LABS: Potassium 5.9 mmol/L (3.4-5.1)
[2022-10-28 00:10] LABS: Alkaline Phosphatase 131 U/L (38-126); Aspartate Aminotransferase 78 IU/L (17-59)
[2022-10-28 00:11] LABS: Total Protein 7.6 g/dL (6.3-8.2)
[2022-10-28 00:16] LABS: Troponin I < 0.012 ng/mL (0.01-0.034)
[2022-10-28 00:23] LABS: Glucose 532 mg/dL (70-100)
--- NOTE | 2022-10-28 00:27 | ED_ITS ---
HPI - Skin/Abscess/Foreign Bdy <Neil Fernandez DO - Last Filed: 10/29/22 14:13> General Chief complaint: Skin/Abscess/Foreign Body Stated complaint: infected wound/back injury/blood infection Time Seen by Provider: 10/27/22 22:29 Source: patient Mode of arrival: Wheelchair History of Present Illness HPI narrative: 52-year-old male former smoker with history of poorly-controlled diabetes, peripheral neuropathy, hypertension, hyperlipidemia and recently diagnosed renal failure presents with a chief complaint of worsening left foot infection. He has been having some trouble with an infected wound on his left foot for a few months, but states he has had rapidly worsening swelling, discoloration for the past few days. He had presented here a few days ago and was set to be admitted but had to leave to find care for his dog and promised to return. He returns today, admittedly apologetic and states that he has been taking his antibiotics as directed but his foot certainly looks worse. On the whole he feels unwell and admits that he is fatigued, nauseated and has little energy. He has nausea but denies any vomiting. He has generalized body aches but denies any specific abdominal pain. Related Data Home Medications Medication Instructions Recorded Confirmed aspirin 81 mg tablet,delayed 81 mg PO DAILY 10/24/20 10/28/22 release Previous Rx's Medication Instructions Recorded lisinopril 10 mg tablet 10 mg PO DAILY #90 tabs 05/17/22 glipizide 10 mg tablet, extended 10 mg PO DAILY #90 tabs 06/06/22 release 24 hr metformin 500 mg tablet 1,000 mg PO BID #360 tabs 06/06/22 pravastatin 20 mg tablet 20 mg PO BEDTIME #90 tabs 07/16/22 doxycycline hyclate 100 mg tablet 100 mg PO BID #20 tabs 10/23/22 Allergies Allergy/AdvReac Type Severity Reaction Status Date / Time No Known Drug Allergies Allergy Verified 10/28/22 11:47 Review of Systems <Neil Fernandez DO - Last Filed: 10/29/22 14:13> Review of Systems Narrative: GENERAL: See HPI HEENT: Denies sinus pain, ear pain, sore throat, difficulty swallowing, dizziness. RESPIRATORY: Denies dyspnea, cough, wheezing, hemoptysis, sputum. CARDIOVASCULAR: Denies chest pain, palpitations, orthopnea, edema, GASTROINTESTINAL: Denies nausea, vomiting, abdominal pain, diarrhea, const ipation, melena. : Denies dysuria, frequency, incontinence, hematuria, urinary retention. MUSCULOSKELETAL: denies weakness, joint pain, or bony pain SKIN: See HPI NEUROLOGIC: See HPI PSYCHIATRIC: No concerning psychosocial issues. 12 point review of systems is negative except for those stated above Patient History <Neil Fernandez DO - Last Filed: 10/29/22 14:13> Medical History ADHD (~1978) Alcoholism in remission Essential hypertension (01/27/17) Hematuria Hyperlipidemia associated with type 2 diabetes mellitus Hypertensive emergency Obesity (BMI 30.0-34.9) Type 2 diabetes mellitus Surgical History No pertinent past surgical history Family History Mother Diabetes mellitus History of heart disease Hypertension Grandfather Cancer Hypertension Grandmother History of heart disease Grandfather Hypertension History of heart disease Social History household members: spouse Smoking Status: Former smoker alcohol intake: current Smoking Status: Former smoker tobacco type: cigarettes alcohol intake frequency: holidays/special occasions only Substance Use Type: does not use Exam <Neil Fernandez DO - Last Filed: 10/29/22 14:13> Narrative Exam Narrative: GENERAL: [52] year old patient appears stated age. Well-developed patient, in mild distress. HEAD: Atraumatic. Normocephalic. EYES: Pupils equal round and reactive. Extraocular motions intact. No scleral icterus. No injection or drainage. Pale conjunctiva ENT: Nose without bleeding, purulent drainage. Throat without erythema, tonsillar hypertrophy or exudate. Airway patent. NECK: Trachea midline. Non tender CARDIOVASCULAR: Regular rate and rhythm without murmurs, gallops, or rubs. RESPIRATORY: Clear to auscultation. Breath sounds equal bilaterally. No wheezes, rales, or rhonchi. GASTROINTESTINAL: Abdomen soft, non-tender, nondistended. EXTREMITIES: . 1+ pitting edema bilateral lower extremities. Large ulcer on plantar surface of left foot overlying the 1st metatarsal phalangeal joint, no obvious bone exposure, however there is foul-smelling drainage. There is noted edema and erythema and an intact, fluctuant, thinly roofed abscess at medial aspect of 1st MTP. Very little if any sensation BACK: Nontender without deformity or crepitance. No flank tenderness. NEURO: AOx3. SKIN: No rash or erythema of visible areas Initial Vital Signs Initial Vital Signs: Vital Signs Temperature 98.5 F 10/27/22 23:11 Pulse Rate 101 H 10/27/22 23:11 Respiratory Rate 16 10/27/22 23:11 Blood Pressure 92/55 L 10/27/22 23:11 Pulse Oximetry 99 10/27/22 23:11 Oxygen Delivery Method Room Air 10/27/22 23:11 <Gurinder Bryant DO - Last Filed: 10/28/22 11:59> Initial Vital Signs Initial Vital Signs: Vital Signs Temperature 98.5 F 10/27/22 23:11 Pulse Rate 101 H 10/27/22 23:11 Respiratory Rate 16 10/27/22 23:11 Blood Pressure 92/55 L 10/27/22 23:11 Pulse Oximetry 99 10/27/22 23:11 Oxygen Delivery Method Room Air 10/27/22 23:11 Course <Neil Fernandez, DO - Last Filed: 10/29/22 14:13> Orders Ordered: Aspirin (Aspirin Ec 81 Mg Tablet) 81 mg PO BID [facility] Atorvastatin Calcium (Atorvastatin 20 Mg Tablet) 20 mg PO BEDTIME [facility] Last Admin: 10/28/22 21:27 Dose: 20 mg Documented By: AM Dextrose (Dextrose 50 % In Water 25 Gm/50 Ml Syringe) 25 gm IV PRN PRN PRN Reason: Hypoglycemia Ferrous Sulfate (Ferrous Sulfate 325 Mg Tablet) 325 mg PO DAILY [facility] Last Admin: 10/29/22 08:14 Dose: 325 mg Documented By: LISA Hydromorphone HCl (Hydromorphone 1 Mg Inj) 1 mg IV Q2H PRN PRN Reason: Pain, Severe (7-10) Last Admin: 10/29/22 11:08 Dose: 1 mg Documented By: Admin: 10/28/22 21:25 Dose: 1 mg Documented By: Admin: 10/28/22 15:35 Dose: 1 mg Documented By: CLP Lactated Ringer's (Lactated Ringers) 1,000 mls @ 42 mls/hr IV CONT [facility] Last Admin: 10/28/22 15:07 Dose: 42 mls/hr Documented By: Infusion: 10/28/22 15:07 Dose: 42 mls/hr Documented By: Admin: 10/28/22 13:21 Dose: 42 mls/hr Documented By: OMERO Ceftriaxone Sodium 2,000 mg/ (Sodium Chloride) 100 mls @ 200 mls/hr IV Q24H [facility] Last Admin: 10/29/22 12:14 Dose: 200 mls/hr Documented By: LISA Insulin Glargine (Insulin Glargine 100 Unit/Ml 3ml Pen) 25 unit SUBCUT BEDTIME [facility]IE Insulin Human Lispro (Insulin Lispro 100 Unit/Ml 3ml Vial) 0 unit SUBCUT ACHS [facility]; Protocol Last Admin: 10/29/22 12:18 Dose: 10 unit Documented By: LISA Co-signed By: KAILEE Admin: 10/29/22 08:17 Dose: 7 unit Documented By: LISA Co-signed By: BERTO Admin: 10/28/22 21:28 Dose: 5 unit Documented By: TROY Co-signed By: RALF Admin: 10/28/22 17:01 Dose: 12 unit Documented By: RALF Co-signed By: MADISON Admin: 10/28/22 15:19 Dose: 12 unit Documented By: MADISON Co-signed By: BERTO Lisinopril (Lisinopril 10 Mg Tablet) 10 mg PO DAILY [facility] Last Admin: 10/29/22 08:14 Dose: 10 mg Documented By: LISA Naloxone HCl (Naloxone 0.4 Mg/Ml Vial) 0.2 mg IV Q2MIN PRN PRN Reason: Opiate Reversal Ondansetron HCl (Ondansetron 4 Mg/2 Ml Inj) 4 mg IV Q8HR PRN PRN Reason: Nausea And Vomiting Oxycodone HCl (Oxycodone Ir 5 Mg Tablet) 5 mg PO Q4HR PRN PRN Reason: Pain, Moderate (4-6) Last Admin: 10/29/22 08:14 Dose: 5 mg Documented By: Admin: 10/29/22 01:40 Dose: 5 mg Documented By: AM Discontinued Medications Albuterol (Albuterol 2.5 Mg/3 Ml Neb (Adult)) 2.5 mg INH NOW PRN PRN Reason: Coughing, Wheezing, Dyspnea Aspirin (Aspirin Ec 81 Mg Tablet) 81 mg PO DAILY [facility] Last Admin: 10/29/22 08:14 Dose: 81 mg Documented By: LISA Hydromorphone HCl (Hydromorphone 2 Mg Inj) 0 mg IV Q5MIN PRN PRN Reason: Pain, Mild (1-3) Magnesium Sulfate (Magnesium Sulfate) 2 gm in 50 mls @ 25 mls/hr IV NOW ONE Stop: 10/28/22 02:41 Last Infusion: 10/28/22 02:53 Dose: 0 mls/hr Documented By: NAZARIO Co-signed By: JOAQUIM Admin: 10/28/22 00:52 Dose: 25 mls/hr Documented By: NAZARIO Co-signed By: LE Lactated Ringer's (Lactated Ringers) 3,129.78 mls @ 1,043.26 mls/hr 30 ml/kg infuse over 3 hr (3129.78 ml) IV NOW ONE Stop: 10/28/22 03:45 Last Infusion: 10/28/22 05:17 Dose: 0 mls/hr Documented By: Admin: 10/28/22 00:51 Dose: 1,043.26 mls/hr Documented By: NAZARIO Ceftriaxone Sodium 2,000 mg/ (Sodium Chloride) 100 mls @ 200 mls/hr IV NOW ONE Stop: 10/28/22 00:47 Last Infusion: 10/28/22 01:30 Dose: 0 mls/hr Documented By: Admin: 10/28/22 00:51 Dose: 200 mls/hr Documented By: NAZARIO Cefepime HCl 1 gm/ Sodium (Chloride) 100 mls @ 200 mls/hr IV NOW ONE Stop: 10/28/22 01:09 Last Infusion: 10/28/22 02:51 Dose: 0 mls/hr Documented By: Admin: 10/28/22 02:16 Dose: 200 mls/hr Documented By: NAZARIO Vancomycin HCl/Dextrose (Vancomycin) 1,500 mg in 300 mls @ 200 mls/hr IV NOW ONE Stop: 10/28/22 02:37 Last Infusion: 10/28/22 04:36 Dose: 0 mls/hr Documented By: Admin: 10/28/22 02:52 Dose: 200 mls/hr Documented By: NAZARIO Clindamycin Phosphate (Cleocin) 900 mg in 50 mls @ 50 mls/hr IV NOW ONE Stop: 10/28/22 02:08 Last Infusion: 10/28/22 02:17 Dose: 0 mls/hr Documented By: Admin: 10/28/22 01:22 Dose: 50 mls/hr Documented By: NAZARIO Cefepime HCl 1 gm/ Sodium (Chloride) 100 mls @ 200 mls/hr IV BID [facility] Last Infusion: 10/28/22 12:30 Dose: 0 mls/hr Documented By: Admin: 10/28/22 12:05 Dose: 200 mls/hr Documented By: CRISTINA Clindamycin Phosphate (Cleocin) 900 mg in 50 mls @ 50 mls/hr IV Q8H [facility] Last Infusion: 10/28/22 12:42 Dose: 0 mls/hr Documented By: Admin: 10/28/22 12:30 Dose: 50 mls/hr Documented By: CRISTINA Vancomycin HCl (Vancomycin) 1,000 mg in 200 mls @ 200 mls/hr IV Q12H [facility] Last Infusion: 10/28/22 16:30 Dose: 0 mls/hr Documented By: Admin: 10/28/22 15:07 Dose: 200 mls/hr Documented By: MADISON Ampicillin Sodium/Sulbactam (Sodium 3 gm/ Sodium Chloride) 100 mls @ 200 mls/hr IV Q6H [facility] Last Admin: 10/29/22 11:00 Dose: 200 mls/hr Documented By: Infusion: 10/29/22 03:22 Dose: 200 mls/hr Documented By: Admin: 10/29/22 02:52 Dose: 200 mls/hr Documented By: Infusion: 10/28/22 22:25 Dose: 0 mls/hr Documented By: Admin: 10/28/22 21:28 Dose: 200 mls/hr Documented By: Infusion: 10/28/22 17:10 Dose: 0 mls/hr Documented By: Admin: 10/28/22 16:36 Dose: 200 mls/hr Documented By: CLP Insulin Glargine (Insulin Glargine 100 Unit/Ml 3ml Pen) 10 unit SUBCUT BEDTIME [facility] Insulin Glargine (Insulin Glargine 100 Unit/Ml 3ml Pen) 15 unit SUBCUT BEDTIME [facility] Last Admin: 10/28/22 21:29 Dose: 15 unit Documented By: TROY Co-signed By: RALF Insulin Human Regular (Insulin Regular 100 Unit/Ml 3 Ml Vial) 10 unit SUBCUT NOW ONE Stop: 10/28/22 05:26 Last Admin: 10/28/22 05:34 Dose: 10 unit Documented By: NAZARIO Co-signed By: JOAQUIM Magnesium Chloride (Magnesium Chloride 64 Mg Tablet) 128 mg PO NOW ONE Stop: 10/29/22 09:46 Last Admin: 10/29/22 10:45 Dose: 128 mg Documented By: LISA Metformin HCl (Metformin Hcl 500 Mg Tablet) 1,000 mg PO BIDWM [facility] Metoclopramide HCl (Metoclopramide 10 Mg/2 Ml Inj) 10 mg IV NOW PRN PRN Reason: Nausea And Vomiting Glipizide 10 Mg Tablet Extended Release 24hr 10 mg PO DAILY [facility] Ondansetron HCl (Ondansetron 4 Mg/2 Ml Inj) 4 mg IV NOW PRN PRN Reason: Nausea And Vomiting Pravastatin Sodium (Pravastatin 20 Mg Tablet) 20 mg PO BEDTIME [facility] Vancomycin HCl (Vancomycin Per Pharmacy) 1 request MIS NOW ONE Stop: 10/28/22 07:45 Last Admin: 10/28/22 15:07 Dose: Not Given Documented By: MADISON Vancomycin HCl (Vancomycin Trough) 1 [place] [facility] [id number] Stop: 10/29/22 14:31 Vital Signs Vital signs: Vital Signs - 8 hr 10/28/22 05:29 10/28/22 05:36 10/28/22 06:00 Temperature Pulse Rate 88 91 H Respiratory Rate 16 18 Blood Pressure 105/53 L Pulse Oximetry 91 95 Oxygen Delivery Method 10/28/22 06:30 10/28/22 07:00 10/28/22 07:29 Temperature Pulse Rate 91 H 90 Respiratory Rate Blood Pressure 117/64 Pulse Oximetry 93 90 L Oxygen Delivery Method 10/28/22 07:29 10/28/22 07:30 10/28/22 07:57 Temperature Pulse Rate 90 90 87 Respiratory Rate 18 Blood Pressure Pulse Oximetry 94 93 95 Oxygen Delivery Method Room Air 10/28/22 08:00 10/28/22 08:21 10/28/22 08:19 Temperature 98.2 F Pulse Rate 89 Respiratory Rate 18 Blood Pressure 102/56 L 112/59 L 112/59 L Pulse Oximetry Oxygen Delivery Method 10/28/22 08:19 10/28/22 08:30 10/28/22 08:36 Temperature 98.7 F Pulse Rate 88 86 85 Respiratory Rate 18 Blood Pressure 117/62 Pulse Oximetry 93 93 Oxygen Delivery Method Room Air 10/28/22 08:38 10/28/22 08:38 10/28/22 09:00 Temperature Pulse Rate 86 85 Respiratory Rate Blood Pressure 117/62 Pulse Oximetry 92 95 Oxygen Delivery Method Room Air 10/28/22 09:30 10/28/22 10:02 10/28/22 10:13 Temperature 98.1 F 98.1 F Pulse Rate 85 83 84 Respiratory Rate 18 14 Blood Pressure 120/68 120/68 Pulse Oximetry 92 Oxygen Delivery Method Room Air 10/28/22 10:28 10/28/22 10:28 10/28/22 10:00 Temperature 98.5 F 98.5 F Pulse Rate 81 81 Respiratory Rate 18 18 Blood Pressure 122/64 122/64 120/68 Pulse Oximetry Oxygen Delivery Method 10/28/22 10:00 10/28/22 10:28 10/28/22 10:28 Temperature Pulse Rate 84 84 Respiratory Rate 18 Blood Pressure 122/64 Pulse Oximetry 93 92 Oxygen Delivery Method Room Air 10/28/22 10:30 Temperature Pulse Rate 82 Respiratory Rate Blood Pressure Pulse Oximetry 92 Oxygen Delivery Method <Gurinder Bryant, - Last Filed: 10/28/22 11:59> Orders Ordered: Aspirin (Aspirin Ec 81 Mg Tablet) 81 mg PO BID [facility] Atorvastatin Calcium (Atorvastatin 20 Mg Tablet) 20 mg PO BEDTIME [facility] Last Admin: 10/28/22 21:27 Dose: 20 mg Documented By: AM Dextrose (Dextrose 50 % In Water 25 Gm/50 Ml Syringe) 25 gm IV PRN PRN PRN Reason: Hypoglycemia Ferrous Sulfate (Ferrous Sulfate 325 Mg Tablet) 325 mg PO DAILY [facility] Last Admin: 10/29/22 08:14 Dose: 325 mg Documented By: LISA Hydromorphone HCl (Hydromorphone 1 Mg Inj) 1 mg IV Q2H PRN PRN Reason: Pain, Severe (7-10) Last Admin: 10/29/22 11:08 Dose: 1 mg Documented By: Admin: 10/28/22 21:25 Dose: 1 mg Documented By: Admin: 10/28/22 15:35 Dose: 1 mg Documented By: MADISON Lactated Ringer's (Lactated Ringers) 1,000 mls @ 42 mls/hr IV CONT [facility] Last Admin: 10/28/22 15:07 Dose: 42 mls/hr Documented By: Infusion: 10/28/22 15:07 Dose: 42 mls/hr Documented By: Admin: 10/28/22 13:21 Dose: 42 mls/hr Documented By: OMERO Ceftriaxone Sodium 2,000 mg/ (Sodium Chloride) 100 mls @ 200 mls/hr IV Q24H [facility] Last Admin: 10/29/22 12:14 Dose: 200 mls/hr Documented By: LISA Insulin Glargine (Insulin Glargine 100 Unit/Ml 3ml Pen) 25 unit SUBCUT BEDTIME [facility] Insulin Human Lispro (Insulin Lispro 100 Unit/Ml 3ml Vial) 0 unit SUBCUT ACHS [facility]; Protocol Last Admin: 10/29/22 12:18 Dose: 10 unit Documented By: LISA Co-signed By: KAILEE Admin: 10/29/22 08:17 Dose: 7 unit Documented By: LISA Co-signed By: BERTO Admin: 10/28/22 21:28 Dose: 5 unit Documented By: TROY Co-signed By: RALF Admin: 10/28/22 17:01 Dose: 12 unit Documented By: RALF Co-signed By: MADISON Admin: 10/28/22 15:19 Dose: 12 unit Documented By: MADISON Co-signed By: BERTO Lisinopril (Lisinopril 10 Mg Tablet) 10 mg PO DAILY [facility] Last Admin: 10/29/22 08:14 Dose: 10 mg Documented By: LISA Naloxone HCl (Naloxone 0.4 Mg/Ml Vial) 0.2 mg IV Q2MIN PRN PRN Reason: Opiate Reversal Ondansetron HCl (Ondansetron 4 Mg/2 Ml Inj) 4 mg IV Q8HR PRN PRN Reason: Nausea And Vomiting Oxycodone HCl (Oxycodone Ir 5 Mg Tablet) 5 mg PO Q4HR PRN PRN Reason: Pain, Moderate (4-6) Last Admin: 10/29/22 08:14 Dose: 5 mg Documented By: Admin: 10/29/22 01:40 Dose: 5 mg Documented By: AM Discontinued Medications Albuterol (Albuterol 2.5 Mg/3 Ml Neb (Adult)) 2.5 mg INH NOW PRN PRN Reason: Coughing, Wheezing, Dyspnea Aspirin (Aspirin Ec 81 Mg Tablet) 81 mg PO DAILY [facility] Last Admin: 10/29/22 08:14 Dose: 81 mg Documented By: LISA Hydromorphone HCl (Hydromorphone 2 Mg Inj) 0 mg IV Q5MIN PRN PRN Reason: Pain, Mild (1-3) Magnesium Sulfate (Magnesium Sulfate) 2 gm in 50 mls @ 25 mls/hr IV NOW ONE Stop: 10/28/22 02:41 Last Infusion: 10/28/22 02:53 Dose: 0 mls/hr Documented By: NAZARIO Co-signed By: JOAQUIM Admin: 10/28/22 00:52 Dose: 25 mls/hr Documented By: NAZARIO Co-signed By: LE Lactated Ringer's (Lactated Ringers) 3,129.78 mls @ 1,043.26 mls/hr 30 ml/kg infuse over 3 hr (3129.78 ml) IV NOW ONE Stop: 10/28/22 03:45 Last Infusion: 10/28/22 05:17 Dose: 0 mls/hr Documented By: Admin: 10/28/22 00:51 Dose: 1,043.26 mls/hr Documented By: NAZARIO Ceftriaxone Sodium 2,000 mg/ (Sodium Chloride) 100 mls @ 200 mls/hr IV NOW ONE Stop: 10/28/22 00:47 Last Infusion: 10/28/22 01:30 Dose: 0 mls/hr Documented By: Admin: 10/28/22 00:51 Dose: 200 mls/hr Documented By: NAZARIO Cefepime HCl 1 gm/ Sodium (Chloride) 100 mls @ 200 mls/hr IV NOW ONE Stop: 10/28/22 01:09 Last Infusion: 10/28/22 02:51 Dose: 0 mls/hr Documented By: Admin: 10/28/22 02:16 Dose: 200 mls/hr Documented By: NAZARIO Vancomycin HCl/Dextrose (Vancomycin) 1,500 mg in 300 mls @ 200 mls/hr IV NOW ONE Stop: 10/28/22 02:37 Last Infusion: 10/28/22 04:36 Dose: 0 mls/hr Documented By: Admin: 10/28/22 02:52 Dose: 200 mls/hr Documented By: NAZARIO Clindamycin Phosphate (Cleocin) 900 mg in 50 mls @ 50 mls/hr IV NOW ONE Stop: 10/28/22 02:08 Last Infusion: 10/28/22 02:17 Dose: 0 mls/hr Documented By: Admin: 10/28/22 01:22 Dose: 50 mls/hr Documented By: NAZARIO Cefepime HCl 1 gm/ Sodium (Chloride) 100 mls @ 200 mls/hr IV BID [facility] Last Infusion: 10/28/22 12:30 Dose: 0 mls/hr Documented By: Admin: 10/28/22 12:05 Dose: 200 mls/hr Documented By: CRISTINA Clindamycin Phosphate (Cleocin) 900 mg in 50 mls @ 50 mls/hr IV Q8H [facility] Last Infusion: 10/28/22 12:42 Dose: 0 mls/hr Documented By: Admin: 10/28/22 12:30 Dose: 50 mls/hr Documented By: CRISTINA Vancomycin HCl (Vancomycin) 1,000 mg in 200 mls @ 200 mls/hr IV Q12H [facility] Last Infusion: 10/28/22 16:30 Dose: 0 mls/hr Documented By: Admin: 10/28/22 15:07 Dose: 200 mls/hr Documented By: MADISON Ampicillin Sodium/Sulbactam (Sodium 3 gm/ Sodium Chloride) 100 mls @ 200 mls/hr IV Q6H [facility] Last Admin: 10/29/22 11:00 Dose: 200 mls/hr Documented By: Infusion: 10/29/22 03:22 Dose: 200 mls/hr Documented By: Admin: 10/29/22 02:52 Dose: 200 mls/hr Documented By: Infusion: 10/28/22 22:25 Dose: 0 mls/hr Documented By: Admin: 10/28/22 21:28 Dose: 200 mls/hr Documented By: Infusion: 10/28/22 17:10 Dose: 0 mls/hr Documented By: Admin: 10/28/22 16:36 Dose: 200 mls/hr Documented By: CLP Insulin Glargine (Insulin Glargine 100 Unit/Ml 3ml Pen) 10 unit SUBCUT BEDTIME [facility] Insulin Glargine (Insulin Glargine 100 Unit/Ml 3ml Pen) 15 unit SUBCUT BEDTIME [facility] Last Admin: 10/28/22 21:29 Dose: 15 unit Documented By: TROY Co-signed By: RALF Insulin Human Regular (Insulin Regular 100 Unit/Ml 3 Ml Vial) 10 unit SUBCUT NOW ONE Stop: 10/28/22 05:26 Last Admin: 10/28/22 05:34 Dose: 10 unit Documented By: NAZARIO Co-signed By: JOAQUIM Magnesium Chloride (Magnesium Chloride 64 Mg Tablet) 128 mg PO NOW ONE Stop: 10/29/22 09:46 Last Admin: 10/29/22 10:45 Dose: 128 mg Documented By: LISA Metformin HCl (Metformin Hcl 500 Mg Tablet) 1,000 mg PO BIDWM [facility] Metoclopramide HCl (Metoclopramide 10 Mg/2 Ml Inj) 10 mg IV NOW PRN PRN Reason: Nausea And Vomiting Glipizide 10 Mg Tablet Extended Release 24hr 10 mg PO DAILY [facility] Ondansetron HCl (Ondansetron 4 Mg/2 Ml Inj) 4 mg IV NOW PRN PRN Reason: Nausea And Vomiting Pravastatin Sodium (Pravastatin 20 Mg Tablet) 20 mg PO BEDTIME [facility] Vancomycin HCl (Vancomycin Per Pharmacy) 1 request MIS NOW ONE Stop: 10/28/22 07:45 Last Admin: 10/28/22 15:07 Dose: Not Given Documented By: MADISON Vancomycin HCl (Vancomycin Trough) 1 [place] [facility] [id number] ONE Stop: 10/29/22 14:31 Vital Signs Vital signs: Vital Signs - 8 hr 10/28/22 05:29 10/28/22 05:36 10/28/22 06:00 Temperature Pulse Rate 88 91 H Respiratory Rate 16 18 Blood Pressure 105/53 L Pulse Oximetry 91 95 Oxygen Delivery Method 10/28/22 06:30 10/28/22 07:00 10/28/22 07:29 Temperature Pulse Rate 91 H 90 Respiratory Rate Blood Pressure 117/64 Pulse Oximetry 93 90 L Oxygen Delivery Method 10/28/22 07:29 10/28/22 07:30 10/28/22 07:57 Temperature Pulse Rate 90 90 87 Respiratory Rate 18 Blood Pressure Pulse Oximetry 94 93 95 Oxygen Delivery Method Room Air 10/28/22 08:00 10/28/22 08:21 10/28/22 08:19 Temperature 98.2 F Pulse Rate 89 Respiratory Rate 18 Blood Pressure 102/56 L 112/59 L 112/59 L Pulse Oximetry Oxygen Delivery Method 10/28/22 08:19 10/28/22 08:30 10/28/22 08:36 Temperature 98.7 F Pulse Rate 88 86 85 Respiratory Rate 18 Blood Pressure 117/62 Pulse Oximetry 93 93 Oxygen Delivery Method Room Air 10/28/22 08:38 10/28/22 08:38 10/28/22 09:00 Temperature Pulse Rate 86 85 Respiratory Rate Blood Pressure 117/62 Pulse Oximetry 92 95 Oxygen Delivery Method Room Air 10/28/22 09:30 10/28/22 10:02 10/28/22 10:13 Temperature 98.1 F 98.1 F Pulse Rate 85 83 84 Respiratory Rate 18 14 Blood Pressure 120/68 120/68 Pulse Oximetry 92 Oxygen Delivery Method Room Air 10/28/22 10:28 10/28/22 10:28 10/28/22 10:00 Temperature 98.5 F 98.5 F Pulse Rate 81 81 Respiratory Rate 18 18 Blood Pressure 122/64 122/64 120/68 Pulse Oximetry Oxygen Delivery Method 10/28/22 10:00 10/28/22 10:28 10/28/22 10:28 Temperature Pulse Rate 84 84 Respiratory Rate 18 Blood Pressure 122/64 Pulse Oximetry 93 92 Oxygen Delivery Method Room Air 10/28/22 10:30 Temperature Pulse Rate 82 Respiratory Rate Blood Pressure Pulse Oximetry 92 Oxygen Delivery Method MDM - Skin/Abscess/Foreign Bdy <Neil Fernandez, DO - Last Filed: 10/29/22 14:13> Lab Data 10/29/22 05:25 10/29/22 05:25 Labs: Lab Results 10/27/22 10/27/22 10/27/22 Range/Units 23:19 23:37 23:37 WBC 11.9 H (4.5-11.0) X10^3/uL RBC 2.89 L (4.5-5.9) X10^6/uL Hgb 7.6 L (13.5-17.5) g/dL Hct 23.1 L (41-53) % MCV 80.0 (80-100) fL MCH 26.1 (26-34) PG MCHC 32.7 (30-36) % RDW 17.4 H (11.6-14.8) % Plt Count 440 H (150-400) X10^3/uL Neut % (Auto) 85.4 H (50-75) % Lymph % (Auto) 6.7 L (25-40) % [place] % (Auto) 7.3 (3-14) % Eos % (Auto) 0.4 L (2-4) % Baso % (Auto) 0.2 (0-2) % Neut # (Auto) 92735 H (2629-7669) /uL Lymph # (Auto) 800 L (6980-9619) /uL [place] # (Auto) 900 (0-900) /uL Eos # (Auto) 100 (0-450) /uL Baso # (Auto) 0 (0-100) /uL ESR 6 (0-15) MM/HR VBG pH 7.35 (7.33-7.43) VBG pCO2 32.3 L (45-50) mmHg VBG pO2 19 L (35-45) mmHg VBG HCO3 18 L (24-28) mmol/L VBG Total CO2 19 L (24-29) mmol/L VBG O2 Saturation 29 L (70-75) % VBG Base Excess -8.0 L (0-4) mmol/L FiO2 21 Sodium 120 L (137-145) mmol/L Potassium 5.9 H D (3.4-5.1) mmol/L Chloride 93 L (98-107) mmol/L Carbon Dioxide 15 L (22-32) mmol/L BUN 30 H (9-20) mg/dL Creatinine 1.90 H (0.66-1.25) mg/dL Estimated GFR 42 L (>60) mL/min BUN/Creatinine Ratio 15.8 (6-22) Glucose 532 H* (70-100) mg/dL Hemoglobin A1c (4.0-6.0) % Lactate (0.7-2.1) mmol/L Calcium 8.6 (8.4-10.2) mg/dL Magnesium 1.3 L (1.6-2.3) mg/dL Iron (49-181) ug/dL TIBC (261-462) ug/dL % Saturation (20-50) % Transferrin (206-381) mg/dL Total Bilirubin 1.1 (0.2-1.3) mg/dL AST 78 H (17-59) IU/L ALT 77 H (<50) IU/L Alkaline Phosphatase 131 H (38-126) U/L Total Creatine Kinase 71 (55-170) U/L CK-MB (CK-2) TNP CK-MB (CK-2) Rel Index TNP Troponin I < 0.012 (0.01-0.034) ng/mL C-Reactive Protein 23.2 H (<1.0) mg/dL Total Protein 7.6 (6.3-8.2) g/dL Albumin 3.5 (3.5-5.0) g/dL Globulin 4.1 (1.7-4.1) g/dL Albumin/Globulin Ratio 0.9 L (1.0-2.8) Lipase 365 H D (23-300) U/L Procalcitonin (<0.5) ng/mL Urine RBC (0-5/HPF) Urine WBC (0-5/HPF) Ur Squamous Epith Cells (0-5/HPF) Urine Bacteria (None) Ketones (<0.27) mmol/L SARS-CoV-2 (PCR) (Negative) Blood Type Antibody Screen Crossmatch 10/27/22 10/27/22 10/28/22 Range/Units 23:37 23:37 04:33 WBC (4.5-11.0) X10^3/uL RBC (4.5-5.9) X10^6/uL Hgb (13.5-17.5) g/dL Hct (41-53) % MCV (80-100) fL MCH (26-34) PG MCHC (30-36) % RDW (11.6-14.8) % Plt Count (150-400) X10^3/uL Neut % (Auto) (50-75) % Lymph % (Auto) (25-40) % [place] % (Auto) (3-14) % Eos % (Auto) (2-4) % Baso % (Auto) (0-2) % Neut # (Auto) (6425-6734) /uL Lymph # (Auto) (2487-0048) /uL [place] # (Auto) (0-900) /uL Eos # (Auto) (0-450) /uL Baso # (Auto) (0-100) /uL ESR (0-15) MM/HR VBG pH (7.33-7.43) VBG pCO2 (45-50) mmHg VBG pO2 (35-45) mmHg VBG HCO3 (24-28) mmol/L VBG Total CO2 (24-29) mmol/L VBG O2 Saturation (70-75) % VBG Base Excess (0-4) mmol/L FiO2 Sodium (137-145) mmol/L Potassium (3.4-5.1) mmol/L Chloride (98-107) mmol/L Carbon Dioxide (22-32) mmol/L BUN (9-20) mg/dL Creatinine (0.66-1.25) mg/dL Estimated GFR (>60) mL/min BUN/Creatinine Ratio (6-22) Glucose (70-100) mg/dL Hemoglobin A1c (4.0-6.0) % Lactate 1.1 (0.7-2.1) mmol/L Calcium (8.4-10.2) mg/dL Magnesium (1.6-2.3) mg/dL Iron (49-181) ug/dL TIBC (261-462) ug/dL % Saturation (20-50) % Transferrin (206-381) mg/dL Total Bilirubin (0.2-1.3) mg/dL AST (17-59) IU/L ALT (<50) IU/L Alkaline Phosphatase (38-126) U/L Total Creatine Kinase (55-170) U/L CK-MB (CK-2) CK-MB (CK-2) Rel Index Troponin I (0.01-0.034) ng/mL C-Reactive Protein (<1.0) mg/dL Total Protein (6.3-8.2) g/dL Albumin (3.5-5.0) g/dL Globulin (1.7-4.1) g/dL Albumin/Globulin Ratio (1.0-2.8) Lipase (23-300) U/L Procalcitonin (<0.5) ng/mL Urine RBC 1-5/hpf D (0-5/HPF) Urine WBC 0-1/hpf (0-5/HPF) Ur Squamous Epith Cells 0-1 /hpf (0-5/HPF) Urine Bacteria Few (2-10) H (None) Ketones (<0.27) mmol/L SARS-CoV-2 (PCR) Negative (Negative) Blood Type Antibody Screen Crossmatch 10/28/22 10/28/22 10/28/22 Range/Units 05:20 05:35 05:35 WBC 8.7 (4.5-11.0) X10^3/uL RBC 2.45 L (4.5-5.9) X10^6/uL Hgb 6.3 L* (13.5-17.5) g/dL Hct 19.4 L* (41-53) % MCV 79.4 L (80-100) fL MCH 25.8 L (26-34) PG MCHC 32.6 (30-36) % RDW 17.6 H (11.6-14.8) % Plt Count 354 (150-400) X10^3/uL Neut % (Auto) 79.2 H (50-75) % Lymph % (Auto) 11.0 L (25-40) % [place] % (Auto) 8.5 (3-14) % Eos % (Auto) 0.6 L (2-4) % Baso % (Auto) 0.7 (0-2) % Neut # (Auto) 6900 (6096-2731) /uL Lymph # (Auto) 1000 L (7231-3205) /uL [place] # (Auto) 700 (0-900) /uL Eos # (Auto) 100 (0-450) /uL Baso # (Auto) 100 (0-100) /uL ESR (0-15) MM/HR VBG pH (7.33-7.43) VBG pCO2 (45-50) mmHg VBG pO2 (35-45) mmHg VBG HCO3 (24-28) mmol/L VBG Total CO2 (24-29) mmol/L VBG O2 Saturation (70-75) % VBG Base Excess (0-4) mmol/L FiO2 Sodium 125 L (137-145) mmol/L Potassium 5.0 (3.4-5.1) mmol/L Chloride 96 L (98-107) mmol/L Carbon Dioxide 19 L (22-32) mmol/L BUN 27 H (9-20) mg/dL Creatinine 1.61 H (0.66-1.25) mg/dL Estimated GFR 51 L (>60) mL/min BUN/Creatinine Ratio 16.8 (6-22) Glucose 457 H (70-100) mg/dL Hemoglobin A1c 10.8 H (4.0-6.0) % Lactate (0.7-2.1) mmol/L Calcium 8.1 L (8.4-10.2) mg/dL Magnesium (1.6-2.3) mg/dL Iron (49-181) ug/dL TIBC (261-462) ug/dL % Saturation (20-50) % Transferrin (206-381) mg/dL Total Bilirubin 0.2 (0.2-1.3) mg/dL AST 50 (17-59) IU/L ALT 65 H (<50) IU/L Alkaline Phosphatase 122 (38-126) U/L Total Creatine Kinase (55-170) U/L CK-MB (CK-2) CK-MB (CK-2) Rel Index Troponin I (0.01-0.034) ng/mL C-Reactive Protein (<1.0) mg/dL Total Protein 6.0 L (6.3-8.2) g/dL Albumin 2.6 L (3.5-5.0) g/dL Globulin 3.4 (1.7-4.1) g/dL Albumin/Globulin Ratio 0.8 L (1.0-2.8) Lipase (23-300) U/L Procalcitonin 2.58 H (<0.5) ng/mL Urine RBC (0-5/HPF) Urine WBC (0-5/HPF) Ur Squamous Epith Cells (0-5/HPF) Urine Bacteria (None) Ketones (<0.27) mmol/L SARS-CoV-2 (PCR) (Negative) Blood Type Antibody Screen Crossmatch 10/28/22 10/28/22 10/28/22 Range/Units 05:35 06:15 07:57 WBC (4.5-11.0) X10^3/uL RBC (4.5-5.9) X10^6/uL Hgb (13.5-17.5) g/dL Hct (41-53) % MCV (80-100) fL MCH (26-34) PG MCHC (30-36) % RDW (11.6-14.8) % Plt Count (150-400) X10^3/uL Neut % (Auto) (50-75) % Lymph % (Auto) (25-40) % [place] % (Auto) (3-14) % Eos % (Auto) (2-4) % Baso % (Auto) (0-2) % Neut # (Auto) (2858-2525) /uL Lymph # (Auto) (8529-5115) /uL [place] # (Auto) (0-900) /uL Eos # (Auto) (0-450) /uL Baso # (Auto) (0-100) /uL ESR (0-15) MM/HR VBG pH 7.40 (7.33-7.43) VBG pCO2 28.3 L (45-50) mmHg VBG pO2 30 L (35-45) mmHg VBG HCO3 18 L (24-28) mmol/L VBG Total CO2 19 L (24-29) mmol/L VBG O2 Saturation 60 L (70-75) % VBG Base Excess -7.0 L (0-4) mmol/L FiO2 20 Sodium (137-145) mmol/L Potassium (3.4-5.1) mmol/L Chloride (98-107) mmol/L Carbon Dioxide (22-32) mmol/L BUN (9-20) mg/dL Creatinine (0.66-1.25) mg/dL Estimated GFR (>60) mL/min BUN/Creatinine Ratio (6-22) Glucose (70-100) mg/dL Hemoglobin A1c (4.0-6.0) % Lactate (0.7-2.1) mmol/L Calcium (8.4-10.2) mg/dL Magnesium (1.6-2.3) mg/dL Iron < 10 L (49-181) ug/dL TIBC 204 L (261-462) ug/dL % Saturation 5 L (20-50) % Transferrin 140 L (206-381) mg/dL Total Bilirubin (0.2-1.3) mg/dL AST (17-59) IU/L ALT (<50) IU/L Alkaline Phosphatase (38-126) U/L Total Creatine Kinase (55-170) U/L CK-MB (CK-2) CK-MB (CK-2) Rel Index Troponin I (0.01-0.034) ng/mL C-Reactive Protein (<1.0) mg/dL Total Protein (6.3-8.2) g/dL Albumin (3.5-5.0) g/dL Globulin (1.7-4.1) g/dL Albumin/Globulin Ratio (1.0-2.8) Lipase (23-300) U/L Procalcitonin (<0.5) ng/mL Urine RBC (0-5/HPF) Urine WBC (0-5/HPF) Ur Squamous Epith Cells (0-5/HPF) Urine Bacteria (None) Ketones (<0.27) mmol/L SARS-CoV-2 (PCR) (Negative) Blood Type A Negative Antibody Screen Negative Crossmatch See Detail 10/28/22 Range/Units 08:00 WBC (4.5-11.0) X10^3/uL RBC (4.5-5.9) X10^6/uL Hgb (13.5-17.5) g/dL Hct (41-53) % MCV (80-100) fL MCH (26-34) PG MCHC (30-36) % RDW (11.6-14.8) % Plt Count (150-400) X10^3/uL Neut % (Auto) (50-75) % Lymph % (Auto) (25-40) % [place] % (Auto) (3-14) % Eos % (Auto) (2-4) % Baso % (Auto) (0-2) % Neut # (Auto) (2823-7838) /uL Lymph # (Auto) (2752-0235) /uL [place] # (Auto) (0-900) /uL Eos # (Auto) (0-450) /uL Baso # (Auto) (0-100) /uL ESR (0-15) MM/HR VBG pH (7.33-7.43) VBG pCO2 (45-50) mmHg VBG pO2 (35-45) mmHg VBG HCO3 (24-28) mmol/L VBG Total CO2 (24-29) mmol/L VBG O2 Saturation (70-75) % VBG Base Excess (0-4) mmol/L FiO2 Sodium (137-145) mmol/L Potassium (3.4-5.1) mmol/L Chloride (98-107) mmol/L Carbon Dioxide (22-32) mmol/L BUN (9-20) mg/dL Creatinine (0.66-1.25) mg/dL Estimated GFR (>60) mL/min BUN/Creatinine Ratio (6-22) Glucose (70-100) mg/dL Hemoglobin A1c (4.0-6.0) % Lactate (0.7-2.1) mmol/L Calcium (8.4-10.2) mg/dL Magnesium (1.6-2.3) mg/dL Iron (49-181) ug/dL TIBC (261-462) ug/dL % Saturation (20-50) % Transferrin (206-381) mg/dL Total Bilirubin (0.2-1.3) mg/dL AST (17-59) IU/L ALT (<50) IU/L Alkaline Phosphatase (38-126) U/L Total Creatine Kinase (55-170) U/L CK-MB (CK-2) CK-MB (CK-2) Rel Index Troponin I (0.01-0.034) ng/mL C-Reactive Protein (<1.0) mg/dL Total Protein (6.3-8.2) g/dL Albumin (3.5-5.0) g/dL Globulin (1.7-4.1) g/dL Albumin/Globulin Ratio (1.0-2.8) Lipase (23-300) U/L Procalcitonin (<0.5) ng/mL Urine RBC (0-5/HPF) Urine WBC (0-5/HPF) Ur Squamous Epith Cells (0-5/HPF) Urine Bacteria (None) Ketones 0.34 H (<0.27) mmol/L SARS-CoV-2 (PCR) (Negative) Blood Type Antibody Screen Crossmatch Point of Care Testing Glucose POC 446 Urine Dip Bedside Urine Glucose 1000 mg/dl Bedside Urine Bilirubin - Negative Urine Specific [place] 1.010 Bedside Urine Occult Blood +++ Bedside Urine pH 5.5 Bedside Urine Protein - Negative Bedside Urine Urobilinogen - Negative Bedside Urine Nitrite - Negative Bedside Urine Leukocytes - Negative Esterase <Gurinder Bryant DO - Last Filed: 10/28/22 11:59> Lab Data Labs: Lab Results 10/27/22 10/27/22 10/27/22 Range/Units 23:19 23:37 23:37 WBC 11.9 H (4.5-11.0) X10^3/uL RBC 2.89 L (4.5-5.9) X10^6/uL Hgb 7.6 L (13.5-17.5) g/dL Hct 23.1 L (41-53) % MCV 80.0 (80-100) fL MCH 26.1 (26-34) PG MCHC 32.7 (30-36) % RDW 17.4 H (11.6-14.8) % Plt Count 440 H (150-400) X10^3/uL Neut % (Auto) 85.4 H (50-75) % Lymph % (Auto) 6.7 L (25-40) % [place] % (Auto) 7.3 (3-14) % Eos % (Auto) 0.4 L (2-4) % Baso % (Auto) 0.2 (0-2) % Neut # (Auto) 33609 H (8558-5015) /uL Lymph # (Auto) 800 L (1989-5021) /uL [place] # (Auto) 900 (0-900) /uL Eos # (Auto) 100 (0-450) /uL Baso # (Auto) 0 (0-100) /uL ESR 6 (0-15) MM/HR VBG pH 7.35 (7.33-7.43) VBG pCO2 32.3 L (45-50) mmHg VBG pO2 19 L (35-45) mmHg VBG HCO3 18 L (24-28) mmol/L VBG Total CO2 19 L (24-29) mmol/L VBG O2 Saturation 29 L (70-75) % VBG Base Excess -8.0 L (0-4) mmol/L FiO2 21 Sodium 120 L (137-145) mmol/L Potassium 5.9 H D (3.4-5.1) mmol/L Chloride 93 L (98-107) mmol/L Carbon Dioxide 15 L (22-32) mmol/L BUN 30 H (9-20) mg/dL Creatinine 1.90 H (0.66-1.25) mg/dL Estimated GFR 42 L (>60) mL/min BUN/Creatinine Ratio 15.8 (6-22) Glucose 532 H* (70-100) mg/dL Hemoglobin A1c (4.0-6.0) % Lactate (0.7-2.1) mmol/L Calcium 8.6 (8.4-10.2) mg/dL Magnesium 1.3 L (1.6-2.3) mg/dL Iron (49-181) ug/dL TIBC (261-462) ug/dL % Saturation (20-50) % Transferrin (206-381) mg/dL Total Bilirubin 1.1 (0.2-1.3) mg/dL AST 78 H (17-59) IU/L ALT 77 H (<50) IU/L Alkaline Phosphatase 131 H (38-126) U/L Total Creatine Kinase 71 (55-170) U/L CK-MB (CK-2) TNP CK-MB (CK-2) Rel Index TNP Troponin I < 0.012 (0.01-0.034) ng/mL C-Reactive Protein 23.2 H (<1.0) mg/dL Total Protein 7.6 (6.3-8.2) g/dL Albumin 3.5 (3.5-5.0) g/dL Globulin 4.1 (1.7-4.1) g/dL Albumin/Globulin Ratio 0.9 L (1.0-2.8) Lipase 365 H D (23-300) U/L Procalcitonin (<0.5) ng/mL Urine RBC (0-5/HPF) Urine WBC (0-5/HPF) Ur Squamous Epith Cells (0-5/HPF) Urine Bacteria (None) Ketones (<0.27) mmol/L SARS-CoV-2 (PCR) (Negative) Blood Type Antibody Screen Crossmatch 10/27/22 10/27/22 10/28/22 Range/Units 23:37 23:37 04:33 WBC (4.5-11.0) X10^3/uL RBC (4.5-5.9) X10^6/uL Hgb (13.5-17.5) g/dL Hct (41-53) % MCV (80-100) fL MCH (26-34) PG MCHC (30-36) % RDW (11.6-14.8) % Plt Count (150-400) X10^3/uL Neut % (Auto) (50-75) % Lymph % (Auto) (25-40) % [place] % (Auto) (3-14) % Eos % (Auto) (2-4) % Baso % (Auto) (0-2) % Neut # (Auto) (5765-7884) /uL Lymph # (Auto) (0592-4120) /uL [place] # (Auto) (0-900) /uL Eos # (Auto) (0-450) /uL Baso # (Auto) (0-100) /uL ESR (0-15) MM/HR VBG pH (7.33-7.43) VBG pCO2 (45-50) mmHg VBG pO2 (35-45) mmHg VBG HCO3 (24-28) mmol/L VBG Total CO2 (24-29) mmol/L VBG O2 Saturation (70-75) % VBG Base Excess (0-4) mmol/L FiO2 Sodium (137-145) mmol/L Potassium (3.4-5.1) mmol/L Chloride (98-107) mmol/L Carbon Dioxide (22-32) mmol/L BUN (9-20) mg/dL Creatinine (0.66-1.25) mg/dL Estimated GFR (>60) mL/min BUN/Creatinine Ratio (6-22) Glucose (70-100) mg/dL Hemoglobin A1c (4.0-6.0) % Lactate 1.1 (0.7-2.1) mmol/L Calcium (8.4-10.2) mg/dL Magnesium (1.6-2.3) mg/dL Iron (49-181) ug/dL TIBC (261-462) ug/dL % Saturation (20-50) % Transferrin (206-381) mg/dL Total Bilirubin (0.2-1.3) mg/dL AST (17-59) IU/L ALT (<50) IU/L Alkaline Phosphatase (38-126) U/L Total Creatine Kinase (55-170) U/L CK-MB (CK-2) CK-MB (CK-2) Rel Index Troponin I (0.01-0.034) ng/mL C-Reactive Protein (<1.0) mg/dL Total Protein (6.3-8.2) g/dL Albumin (3.5-5.0) g/dL Globulin (1.7-4.1) g/dL Albumin/Globulin Ratio (1.0-2.8) Lipase (23-300) U/L Procalcitonin (<0.5) ng/mL Urine RBC 1-5/hpf D (0-5/HPF) Urine WBC 0-1/hpf (0-5/HPF) Ur Squamous Epith Cells 0-1 /hpf (0-5/HPF) Urine Bacteria Few (2-10) H (None) Ketones (<0.27) mmol/L SARS-CoV-2 (PCR) Negative (Negative) Blood Type Antibody Screen Crossmatch 10/28/22 10/28/22 10/28/22 Range/Units 05:20 05:35 05:35 WBC 8.7 (4.5-11.0) X10^3/uL RBC 2.45 L (4.5-5.9) X10^6/uL Hgb 6.3 L* (13.5-17.5) g/dL Hct 19.4 L* (41-53) % MCV 79.4 L (80-100) fL MCH 25.8 L (26-34) PG MCHC 32.6 (30-36) % RDW 17.6 H (11.6-14.8) % Plt Count 354 (150-400) X10^3/uL Neut % (Auto) 79.2 H (50-75) % Lymph % (Auto) 11.0 L (25-40) % [place] % (Auto) 8.5 (3-14) % Eos % (Auto) 0.6 L (2-4) % Baso % (Auto) 0.7 (0-2) % Neut # (Auto) 6900 (7303-4738) /uL Lymph # (Auto) 1000 L (2106-4626) /uL [place] # (Auto) 700 (0-900) /uL Eos # (Auto) 100 (0-450) /uL Baso # (Auto) 100 (0-100) /uL ESR (0-15) MM/HR VBG pH (7.33-7.43) VBG pCO2 (45-50) mmHg VBG pO2 (35-45) mmHg VBG HCO3 (24-28) mmol/L VBG Total CO2 (24-29) mmol/L VBG O2 Saturation (70-75) % VBG Base Excess (0-4) mmol/L FiO2 Sodium 125 L (137-145) mmol/L Potassium 5.0 (3.4-5.1) mmol/L Chloride 96 L (98-107) mmol/L Carbon Dioxide 19 L (22-32) mmol/L BUN 27 H (9-20) mg/dL Creatinine 1.61 H (0.66-1.25) mg/dL Estimated GFR 51 L (>60) mL/min BUN/Creatinine Ratio 16.8 (6-22) Glucose 457 H (70-100) mg/dL Hemoglobin A1c 10.8 H (4.0-6.0) % Lactate (0.7-2.1) mmol/L Calcium 8.1 L (8.4-10.2) mg/dL Magnesium (1.6-2.3) mg/dL Iron (49-181) ug/dL TIBC (261-462) ug/dL % Saturation (20-50) % Transferrin (206-381) mg/dL Total Bilirubin 0.2 (0.2-1.3) mg/dL AST 50 (17-59) IU/L ALT 65 H (<50) IU/L Alkaline Phosphatase 122 (38-126) U/L Total Creatine Kinase (55-170) U/L CK-MB (CK-2) CK-MB (CK-2) Rel Index Troponin I (0.01-0.034) ng/mL C-Reactive Protein (<1.0) mg/dL Total Protein 6.0 L (6.3-8.2) g/dL Albumin 2.6 L (3.5-5.0) g/dL Globulin 3.4 (1.7-4.1) g/dL Albumin/Globulin Ratio 0.8 L (1.0-2.8) Lipase (23-300) U/L Procalcitonin 2.58 H (<0.5) ng/mL Urine RBC (0-5/HPF) Urine WBC (0-5/HPF) Ur Squamous Epith Cells (0-5/HPF) Urine Bacteria (None) Ketones (<0.27) mmol/L SARS-CoV-2 (PCR) (Negative) Blood Type Antibody Screen Crossmatch 10/28/22 10/28/22 10/28/22 Range/Units 05:35 06:15 07:57 WBC (4.5-11.0) X10^3/uL RBC (4.5-5.9) X10^6/uL Hgb (13.5-17.5) g/dL Hct (41-53) % MCV (80-100) fL MCH (26-34) PG MCHC (30-36) % RDW (11.6-14.8) % Plt Count (150-400) X10^3/uL Neut % (Auto) (50-75) % Lymph % (Auto) (25-40) % [place] % (Auto) (3-14) % Eos % (Auto) (2-4) % Baso % (Auto) (0-2) % Neut # (Auto) (8287-3796) /uL Lymph # (Auto) (0570-6740) /uL [place] # (Auto) (0-900) /uL Eos # (Auto) (0-450) /uL Baso # (Auto) (0-100) /uL ESR (0-15) MM/HR VBG pH 7.40 (7.33-7.43) VBG pCO2 28.3 L (45-50) mmHg VBG pO2 30 L (35-45) mmHg VBG HCO3 18 L (24-28) mmol/L VBG Total CO2 19 L (24-29) mmol/L VBG O2 Saturation 60 L (70-75) % VBG Base Excess -7.0 L (0-4) mmol/L FiO2 20 Sodium (137-145) mmol/L Potassium (3.4-5.1) mmol/L Chloride (98-107) mmol/L Carbon Dioxide (22-32) mmol/L BUN (9-20) mg/dL Creatinine (0.66-1.25) mg/dL Estimated GFR (>60) mL/min BUN/Creatinine Ratio (6-22) Glucose (70-100) mg/dL Hemoglobin A1c (4.0-6.0) % Lactate (0.7-2.1) mmol/L Calcium (8.4-10.2) mg/dL Magnesium (1.6-2.3) mg/dL Iron < 10 L (49-181) ug/dL TIBC 204 L (261-462) ug/dL % Saturation 5 L (20-50) % Transferrin 140 L (206-381) mg/dL Total Bilirubin (0.2-1.3) mg/dL AST (17-59) IU/L ALT (<50) IU/L Alkaline Phosphatase (38-126) U/L Total Creatine Kinase (55-170) U/L CK-MB (CK-2) CK-MB (CK-2) Rel Index Troponin I (0.01-0.034) ng/mL C-Reactive Protein (<1.0) mg/dL Total Protein (6.3-8.2) g/dL Albumin (3.5-5.0) g/dL Globulin (1.7-4.1) g/dL Albumin/Globulin Ratio (1.0-2.8) Lipase (23-300) U/L Procalcitonin (<0.5) ng/mL Urine RBC (0-5/HPF) Urine WBC (0-5/HPF) Ur Squamous Epith Cells (0-5/HPF) Urine Bacteria (None) Ketones (<0.27) mmol/L SARS-CoV-2 (PCR) (Negative) Blood Type A Negative Antibody Screen Negative Crossmatch See Detail 10/28/22 Range/Units 08:00 WBC (4.5-11.0) X10^3/uL RBC (4.5-5.9) X10^6/uL Hgb (13.5-17.5) g/dL Hct (41-53) % MCV (80-100) fL MCH (26-34) PG MCHC (30-36) % RDW (11.6-14.8) % Plt Count (150-400) X10^3/uL Neut % (Auto) (50-75) % Lymph % (Auto) (25-40) % [place] % (Auto) (3-14) % Eos % (Auto) (2-4) % Baso % (Auto) (0-2) % Neut # (Auto) (7991-1479) /uL Lymph # (Auto) (0860-7264) /uL [place] # (Auto) (0-900) /uL Eos # (Auto) (0-450) /uL Baso # (Auto) (0-100) /uL ESR (0-15) MM/HR VBG pH (7.33-7.43) VBG pCO2 (45-50) mmHg VBG pO2 (35-45) mmHg VBG HCO3 (24-28) mmol/L VBG Total CO2 (24-29) mmol/L VBG O2 Saturation (70-75) % VBG Base Excess (0-4) mmol/L FiO2 Sodium (137-145) mmol/L Potassium (3.4-5.1) mmol/L Chloride (98-107) mmol/L Carbon Dioxide (22-32) mmol/L BUN (9-20) mg/dL Creatinine (0.66-1.25) mg/dL Estimated GFR (>60) mL/min BUN/Creatinine Ratio (6-22) Glucose (70-100) mg/dL Hemoglobin A1c (4.0-6.0) % Lactate (0.7-2.1) mmol/L Calcium (8.4-10.2) mg/dL Magnesium (1.6-2.3) mg/dL Iron (49-181) ug/dL TIBC (261-462) ug/dL % Saturation (20-50) % Transferrin (206-381) mg/dL Total Bilirubin (0.2-1.3) mg/dL AST (17-59) IU/L ALT (<50) IU/L Alkaline Phosphatase (38-126) U/L Total Creatine Kinase (55-170) U/L CK-MB (CK-2) CK-MB (CK-2) Rel Index Troponin I (0.01-0.034) ng/mL C-Reactive Protein (<1.0) mg/dL Total Protein (6.3-8.2) g/dL Albumin (3.5-5.0) g/dL Globulin (1.7-4.1) g/dL Albumin/Globulin Ratio (1.0-2.8) Lipase (23-300) U/L Procalcitonin (<0.5) ng/mL Urine RBC (0-5/HPF) Urine WBC (0-5/HPF) Ur Squamous Epith Cells (0-5/HPF) Urine Bacteria (None) Ketones 0.34 H (<0.27) mmol/L SARS-CoV-2 (PCR) (Negative) Blood Type Antibody Screen Crossmatch Point of Care Testing Glucose POC 446 Urine Dip Bedside Urine Glucose 1000 mg/dl Bedside Urine Bilirubin - Negative Urine Specific [place] 1.010 Bedside Urine Occult Blood +++ Bedside Urine pH 5.5 Bedside Urine Protein - Negative Bedside Urine Urobilinogen - Negative Bedside Urine Nitrite - Negative Bedside Urine Leukocytes - Negative Esterase MDM Narrative Medical decision making narrative: Dr bryant: Received turned over. Review patient's history and physical workup up to this point. Patient has received antibiotics. He is not hypotensive. Not altered. Does have what appears to be necrotic left great toe and 2nd toe with associated cellulitis. I did discuss the case with Dr. Dennis with orthopedic surgery who evaluated the patient here in the emergency department. Also discussed the case with Dr. Jordan on-call for inpatient medicine who will admit for further evaluation and treatment. Patient is hyperglycemic but is not acidotic. Is not in DKA. I did discuss all this with the patient. He expressed understanding and agreement. Discharge Plan Departure Patient Disposition: Admitted As Inpatient Clinical Impression: Cellulitis, Sepsis, Diabetes, Osteomyelitis Admit Date/Time: 10/28/22 10:55 Admit Provider: Feliz Jordan
[2022-10-28 00:41] LABS: C-Reactive Protein Quant 23.2 mg/dL (<1.0)
[2022-10-28] MEDS: cefTRIAXone 2,000 MG in SODIUM CHLORIDE 0.9% 100 ML 200 MG IV (00:51)
[2022-10-28] MEDS: LACTATED RINGERS 1043.26 ML IV (00:51)
[2022-10-28] MEDS: MAGNESIUM SULFATE 2 GM/50 ML PIGGYBACK IV (00:52)
--- NOTE | 2022-10-28 01:00 | PC.NURSE ---
pt was seen here last week with left great toe ulceration with necrosis noted, with LLE cellulitis, pt also has ulcerated area to the right great toe. pt had +blood cultures and was called to return, pt states today the areas to his feet are worse and are constantly draining it is like I have been soaking them in water but I haven't
[2022-10-28] MEDS: CLINDAMYCIN 900 MG/50 ML PIGGYBACK 50 MG IV ×2 (01:22→12:30)
[2022-10-28] MEDS: CEFEPIME 1 GM in SODIUM CHLORIDE 0.9% 100 ML IV ×2 (02:16→12:05)
[2022-10-28] MEDS: VANCOMYCIN 1,500 MG/300 ML PIGGYBACK 200 MG IV (02:52)
[2022-10-28 05:02] LABS: RBC Urine 1-5/HPF (0-5/HPF); Squamous Epithelial Cell Urine 0-1 /HPF (0-5/HPF)
[2022-10-28 05:03] LABS: Bacteria Urine Few (2-10); WBC Urine 0-1/HPF (0-5/HPF)
[2022-10-28] MEDS: INSULIN REGULAR 100 UNIT/ML 3 ML VIAL 10 UNIT SUBCUT (05:34)
[2022-10-28 05:43] LABS: Alanine Aminotransferase 65 IU/L (<50); Albumin 2.6 g/dL (3.5-5.0); Albumin Globulin Ratio 0.8 (1.0-2.8); Alkaline Phosphatase 122 U/L (38-126); Aspartate Aminotransferase 50 IU/L (17-59); BUN Creatinine Ratio 16.8 (6-22); Bilirubin Total 0.2 mg/dL (0.2-1.3); Blood Urea Nitrogen 27 mg/dL (9-20); Calcium 8.1 mg/dL (8.4-10.2); Carbon Dioxide 19 mmol/L (22-32); Chloride 96 mmol/L (98-107); Estimated Glomerular Filt Rate 51 mL/min (>60); Globulin 3.4 g/dL (1.7-4.1); Glucose 457 mg/dL (70-100); HEMOLYSIS < 15 (0-50); Sodium 125 mmol/L (137-145)
[2022-10-28 05:53] LABS: Add Manual Diff / Slide Review NO; Basophils Absolute Auto 100 /uL (0-100); Basophils Percent Auto 0.7 % (0-2); Eosinophils Absolute Auto 100 /uL (0-450); Eosinophils Percent Auto 0.6 % (2-4); Lymphocytes Absolute Auto 1000 /uL (1100-4500); Mean Corpuscular HGB Conc 32.6 % (30-36); Mean Corpuscular Hemoglobin 25.8 PG (26-34); Mean Corpuscular Volume 79.4 fL (80-100); Monocytes Absolute Auto 700 /uL (0-900); Monocytes Percent Auto 8.5 % (3-14); Neutrophils Absolute Auto 6900 /uL (1500-7000); Neutrophils Percent Auto 79.2 % (50-75); Platelet Count 354 X10^3/uL (150-400); Red Blood Cell Count 2.45 X10^6/uL (4.5-5.9); Red Cell Distribution Width 17.6 % (11.6-14.8); White Blood Cell Count 8.7 X10^3/uL (4.5-11.0)
[2022-10-28 05:55] LABS: Hematocrit 19.4 % (41-53); Hemoglobin 6.3 g/dL (13.5-17.5)
--- NOTE | 2022-10-28 05:56 | PC.NURSE ---
[facility] said to call back after 0900. all others had no beds
[2022-10-28 06:00] LABS: Procalcitonin 2.58 ng/mL (<0.5)
[2022-10-28 06:04] LABS: HCO3 VBG 18 mmol/L (24-28); Oxygen Saturation VBG 29 % (70-75); PCO2 VBG 32.3 mmHg (45-50); PO2 VBG 19 mmHg (35-45); Total CO2 VBG 19 mmol/L (24-29); pH VBG 7.35 (7.33-7.43)
[2022-10-28 06:05] LABS: Fractionated Inspired Oxygen 21
[2022-10-28 06:06] LABS: Hemoglobin A1C% w Est Avg Glu 10.8 % (4.0-6.0)
[2022-10-28 08:23] LABS: Ketones (Beta-Hydroxybutyrate) 0.34 mmol/L (<0.27)
[2022-10-28 08:32] LABS: Fractionated Inspired Oxygen 20; HCO3 VBG 18 mmol/L (24-28); Oxygen Saturation VBG 60 % (70-75); PCO2 VBG 28.3 mmHg (45-50); PO2 VBG 30 mmHg (35-45); Total CO2 VBG 19 mmol/L (24-29)
--- NOTE | 2022-10-28 08:33 | PC.NURSE ---
Addendum entered by Meeta Art R.N. 10/28/22 10:24: Pt denies feeling in left toes, able to feel pressure to left ankle. Original Note: Doppler used to obtain dorsalis pedis and posterior tibial pulses on left foot. Dorsalis pedis and posterior tibial pulses palpated on right foot. Pt alert, awake, and oriented x4/4. Breathing even and unlabored. Skin pink, warm, and dry. Pt denies dizziness/CP/SOB. x2 IV flushed with blood return. Pt repositioning self independently in stretcher.
--- NOTE | 2022-10-28 11:05 | PM.HP.1 ---
History of Present Illness History of Present Illness Date Patient Seen: 10/28/22 Time Patient Seen: 11:05 Chief complaint: infected wound/back injury/blood infection Narrative: Gutierrez is a pleasant 52-year-old male who presents on consult from the emergency department for evaluation of left great toe cellulitis and necrosis. He has a past medical history uncontrolled diabetes and subsequent complications such as chronic kidney disease. He denies any heart or lung issues at this time. 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 He is had decreased sensation and neuropathy in bilateral feet for over a year and he noticed some cellulitis and necrosis beginning couple of months ago. He has been stable in the emergency department however his hemoglobin started at 8. He is currently getting a unit of blood. Patient History Medical History ADHD (~1978) Alcoholism in remission Essential hypertension (01/27/17) Hematuria Hyperlipidemia associated with type 2 diabetes mellitus Hypertensive emergency Obesity (BMI 30.0-34.9) Type 2 diabetes mellitus Family & Social History Family History Mother Diabetes mellitus History of heart disease Hypertension Grandfather Cancer Hypertension Grandmother History of heart disease Grandfather Hypertension History of heart disease Social History: household members spouse Safety & Behavioral: Feels Safe in Current Yes Environment Been Physically Hurt or No Threatened By a Person Tobacco & Substance use: Smoking Status Former smoker alcohol intake current alcohol intake frequency holiday/special occasion Substance Use Type does not use Meds Home Medications and Allergies Home Medications Medication Instructions Recorded Confirmed Type aspirin 81 mg tablet,delayed 81 mg PO DAILY 10/24/20 06/03/22 History release lisinopril 10 mg tablet 10 mg PO DAILY #90 tabs 05/17/22 06/03/22 Rx glipizide 10 mg tablet, extended 10 mg PO DAILY #90 tabs 06/06/22 Rx release 24 hr metformin 500 mg tablet 1,000 mg PO BID #360 tabs 06/06/22 Rx pravastatin 20 mg tablet 20 mg PO BEDTIME #90 tabs 07/16/22 Rx doxycycline hyclate 100 mg tablet 100 mg PO BID #20 tabs 10/23/22 Rx Allergies Allergy/AdvReac Type Severity Reaction Status Date / Time No Known Drug Allergies Allergy Verified 06/03/22 10:42 Review of Systems Review of Systems ROS: Yes All systems reviewed with the patient and are negative except as otherwise documented Exam Vital Signs (past 8 hours): - 10/28/22 05:29 10/28/22 05:36 10/28/22 06:00 Temperature Pulse Rate 88 91 H Respiratory Rate 16 18 Blood Pressure 105/53 L Pulse Oximetry 91 95 Oxygen Delivery Method 10/28/22 06:30 10/28/22 07:00 10/28/22 07:29 Temperature Pulse Rate 91 H 90 Respiratory Rate Blood Pressure 117/64 Pulse Oximetry 93 90 L Oxygen Delivery Method 10/28/22 07:29 10/28/22 07:30 10/28/22 07:57 Temperature Pulse Rate 90 90 87 Respiratory Rate 18 Blood Pressure Pulse Oximetry 94 93 95 Oxygen Delivery Method Room Air 10/28/22 08:00 10/28/22 08:21 10/28/22 08:19 Temperature 98.2 F Pulse Rate 89 Respiratory Rate 18 Blood Pressure 102/56 L 112/59 L 112/59 L Pulse Oximetry Oxygen Delivery Method 10/28/22 08:19 10/28/22 08:30 10/28/22 08:36 Temperature 98.7 F Pulse Rate 88 86 85 Respiratory Rate 18 Blood Pressure 117/62 Pulse Oximetry 93 93 Oxygen Delivery Method Room Air 10/28/22 08:38 10/28/22 08:38 10/28/22 09:00 Temperature Pulse Rate 86 85 Respiratory Rate Blood Pressure 117/62 Pulse Oximetry 92 95 Oxygen Delivery Method Room Air 10/28/22 09:30 10/28/22 10:02 10/28/22 10:13 Temperature 98.1 F 98.1 F Pulse Rate 85 83 84 Respiratory Rate 18 14 Blood Pressure 120/68 120/68 Pulse Oximetry 92 Oxygen Delivery Method Room Air 10/28/22 10:28 10/28/22 10:28 10/28/22 10:00 Temperature 98.5 F 98.5 F Pulse Rate 81 81 Respiratory Rate 18 18 Blood Pressure 122/64 122/64 120/68 Pulse Oximetry Oxygen Delivery Method 10/28/22 10:00 Temperature Pulse Rate 84 Respiratory Rate 18 Blood Pressure Pulse Oximetry 93 Oxygen Delivery Method Room Air Oxygen Delivery Method Room Air Narrative Exam Narrative: HEENT: Head atraumatic eyes anicteric moist mucous membranes Cardiovascular: Palpable peripheral pulses extremities are warm and well perfused Respiratory: Breathing comfortably on room air Psychiatric: Appropriate mood and affect Neuro: No acute deficits Musculoskeletal: Exam of the left foot demonstrates completely necrotic 1st ray tracking back to the volar pad not quite to the MTP joint. No sensation. Decreased capillary refill. I was unable to palpate his dorsalis pedis pulse due to edema in the foot. He does have sensation proximally along the lower leg in sural and saphenous nerve distributions. Objective Labs 10/28/22 05:35 10/28/22 05:20 Labs: Laboratory Results - last 24 hr 10/27/22 10/27/22 10/27/22 23:19 23:37 23:37 WBC 11.9 H RBC 2.89 L Hgb 7.6 L Hct 23.1 L MCV 80.0 MCH 26.1 MCHC 32.7 RDW 17.4 H Plt Count 440 H Neut % (Auto) 85.4 H Lymph % (Auto) 6.7 L [place] % (Auto) 7.3 Eos % (Auto) 0.4 L Baso % (Auto) 0.2 Neut # (Auto) 98826 H Lymph # (Auto) 800 L [place] # (Auto) 900 Eos # (Auto) 100 Baso # (Auto) 0 ESR 6 VBG pH 7.35 VBG pCO2 32.3 L VBG pO2 19 L VBG HCO3 18 L VBG Total CO2 19 L VBG O2 Saturation 29 L VBG Base Excess -8.0 L FiO2 21 Sodium 120 L Potassium 5.9 H D Chloride 93 L Carbon Dioxide 15 L BUN 30 H Creatinine 1.90 H Estimated GFR 42 L BUN/Creatinine Ratio 15.8 Glucose 532 H* Hemoglobin A1c Lactate Calcium 8.6 Magnesium 1.3 L Total Bilirubin 1.1 AST 78 H ALT 77 H Alkaline Phosphatase 131 H Total Creatine Kinase 71 CK-MB (CK-2) TNP CK-MB (CK-2) Rel Index TNP Troponin I < 0.012 C-Reactive Protein 23.2 H Total Protein 7.6 Albumin 3.5 Globulin 4.1 Albumin/Globulin Ratio 0.9 L Lipase 365 H D Procalcitonin Urine RBC Urine WBC Ur Squamous Epith Cells Urine Bacteria Ketones SARS-CoV-2 (PCR) Blood Type Antibody Screen Crossmatch 10/27/22 10/27/22 10/28/22 23:37 23:37 04:33 WBC RBC Hgb Hct MCV MCH MCHC RDW Plt Count Neut % (Auto) Lymph % (Auto) [place] % (Auto) Eos % (Auto) Baso % (Auto) Neut # (Auto) Lymph # (Auto) [place] # (Auto) Eos # (Auto) Baso # (Auto) ESR VBG pH VBG pCO2 VBG pO2 VBG HCO3 VBG Total CO2 VBG O2 Saturation VBG Base Excess FiO2 Sodium Potassium Chloride Carbon Dioxide BUN Creatinine Estimated GFR BUN/Creatinine Ratio Glucose Hemoglobin A1c Lactate 1.1 Calcium Magnesium Total Bilirubin AST ALT Alkaline Phosphatase Total Creatine Kinase CK-MB (CK-2) CK-MB (CK-2) Rel Index Troponin I C-Reactive Protein Total Protein Albumin Globulin Albumin/Globulin Ratio Lipase Procalcitonin Urine RBC 1-5/hpf D Urine WBC 0-1/hpf Ur Squamous Epith Cells 0-1 /hpf Urine Bacteria Few (2-10) H Ketones SARS-CoV-2 (PCR) Negative Blood Type Antibody Screen Crossmatch 10/28/22 10/28/22 10/28/22 05:20 05:35 05:35 WBC 8.7 RBC 2.45 L Hgb 6.3 L* Hct 19.4 L* MCV 79.4 L MCH 25.8 L MCHC 32.6 RDW 17.6 H Plt Count 354 Neut % (Auto) 79.2 H Lymph % (Auto) 11.0 L [place] % (Auto) 8.5 Eos % (Auto) 0.6 L Baso % (Auto) 0.7 Neut # (Auto) 6900 Lymph # (Auto) 1000 L [place] # (Auto) 700 Eos # (Auto) 100 Baso # (Auto) 100 ESR VBG pH VBG pCO2 VBG pO2 VBG HCO3 VBG Total CO2 VBG O2 Saturation VBG Base Excess FiO2 Sodium 125 L Potassium 5.0 Chloride 96 L Carbon Dioxide 19 L BUN 27 H Creatinine 1.61 H Estimated GFR 51 L BUN/Creatinine Ratio 16.8 Glucose 457 H Hemoglobin A1c 10.8 H Lactate Calcium 8.1 L Magnesium Total Bilirubin 0.2 AST 50 ALT 65 H Alkaline Phosphatase 122 Total Creatine Kinase CK-MB (CK-2) CK-MB (CK-2) Rel Index Troponin I C-Reactive Protein Total Protein 6.0 L Albumin 2.6 L Globulin 3.4 Albumin/Globulin Ratio 0.8 L Lipase Procalcitonin 2.58 H Urine RBC Urine WBC Ur Squamous Epith Cells Urine Bacteria Ketones SARS-CoV-2 (PCR) Blood Type Antibody Screen Crossmatch 10/28/22 10/28/22 10/28/22 06:15 07:57 08:00 WBC RBC Hgb Hct MCV MCH MCHC RDW Plt Count Neut % (Auto) Lymph % (Auto) [place] % (Auto) Eos % (Auto) Baso % (Auto) Neut # (Auto) Lymph # (Auto) [place] # (Auto) Eos # (Auto) Baso # (Auto) ESR VBG pH 7.40 VBG pCO2 28.3 L VBG pO2 30 L VBG HCO3 18 L VBG Total CO2 19 L VBG O2 Saturation 60 L VBG Base Excess -7.0 L FiO2 20 Sodium Potassium Chloride Carbon Dioxide BUN Creatinine Estimated GFR BUN/Creatinine Ratio Glucose Hemoglobin A1c Lactate Calcium Magnesium Total Bilirubin AST ALT Alkaline Phosphatase Total Creatine Kinase CK-MB (CK-2) CK-MB (CK-2) Rel Index Troponin I C-Reactive Protein Total Protein Albumin Globulin Albumin/Globulin Ratio Lipase Procalcitonin Urine RBC Urine WBC Ur Squamous Epith Cells Urine Bacteria Ketones 0.34 H SARS-CoV-2 (PCR) Blood Type A Negative Antibody Screen Negative Crossmatch See Detail Assessment & Plan Assessment & Plan narrative: Assessment: 52-year-old male with left diabetic foot, necrotic 1st ray Plan: We discussed operative and nonoperative management options. In order to stabilize him medically, prevent spread of infection, increased clean skin edges for healing, he is indicated for a partial 1st ray amputation. Risks and benefits of surgery were discussed again including the risk of infection, damage to internal structures, bleeding, nerve injury, instability, need for revision surgery, blood clots, anesthesia and . No guarantees were made regarding outcomes. Patient expressed understanding and accepted these risks and wished to go forward with surgery and consent was signed. Time Spent With Patient Critical Care time: I spent a total of [] minutes of critical care time on this patient's care today; this time is exclusive of procedural time.
--- NOTE | 2022-10-28 11:15 | PC.NURSE ---
Report given to P[employer] GENER[employer] EQUIPMENT REPAIRER Clarisse. Blood infusing, pt tolerating well, transferred to POWER GENER[employer] EQUIPMENT REPAIRER Clarisse.
[2022-10-28 11:27] LABS: HEMOLYSIS < 15 (0-50)
[2022-10-28 11:30] LABS: Iron < 10 ug/dL (49-181)
[2022-10-28 11:40] LABS: Percent Iron Saturation 5 % (20-50); Total Iron Binding Capacity 204 ug/dL (261-462); Transferrin 140 mg/dL (206-381)
--- NOTE | 2022-10-28 12:26 | SUR.OPER ---
Supine on padded OR bed, head on pillow, arms secured on padded arm boards at <90 degrees abduction, legs uncrossed, safety belt at thigh, tape over blanket over lower legs.
[2022-10-28] MEDS: LACTATED RINGERS 1,000 ML 42 ML IV ×2 (13:21→15:07)
--- NOTE | 2022-10-28 14:55 | PC.NURSE ---
Patient brought up from PACU to room 219 at approximately 1340pm. Patient oriented to room and call light. Patient denies pain. States he is still a little out of it from the anesthesia. Left great toe surgical site is now with wound vac in place and stephanie seen at site. Surrounding foot remains erythemic and edematous. Call light and urinal placed within reach. Dr. Jordan notified patient had arrived to room.
[2022-10-28] MEDS: VANCOMYCIN 1,000 MG/200 ML PIGGYBACK 200 MG IV (15:07)
--- NOTE | 2022-10-28 15:07 | P.HP_ITS ---
History of Present Illness History of Present Illness Date Patient Seen: 10/28/22 Time Patient Seen: 15:00 Chief complaint: infected wound/back injury/blood infection Narrative: This is a 52 year old male with PMH of HTN, DM2, HLD, obesity, gout who presented with L toe infection. He reports a diabetic ulcer on that foot for the past few weeks and came to the ER and was to be admitted on 10/23 but left due to his dog being in his car and business obligations. Blood cultures were positive and patient was called but did not return until late yesterday evening. Over the last 2-3 days he has noticed worsening swelling, and redness over his left 1st toe which began tracking up his left foot as well. He reports uncontrolled high blood sugars over the past few weeks, as well as polyuria but no polydipsia. He denies melena, or hematochezia. Today he began having fever and chills. He denies chest pain, abdominal pain, nausea, vomiting, shortness of breath. In the emergency room, his vital signs were unremarkable. Lab evaluation was notable for a microcytic anemia with hemoglobin of 6.3, creatinine of 1.61, much improved from 2.6 a few days ago when he presented to the emergency room. Repeat blood cultures were drawn. Chemistries showed a sodium of 125, corrected to 134 with glucose of 457. CO2 was 19. Mg 1.3, A1c was 10.8. Iron panel showed Iron <10, 5% saturation, with transferrin of 140. Troponin was negaitve. Procal was 2.58. Imaging showed probable osteomyelitis of the L 1st toe. Patient was ordered for 2U PRBC, taken to the OR for amputation by orthopedic surgery, he was seen after surgery. Patient History Medical History ADHD (~1978) Alcoholism in remission Essential hypertension (01/27/17) Hematuria Hyperlipidemia associated with type 2 diabetes mellitus Hypertensive emergency Obesity (BMI 30.0-34.9) Type 2 diabetes mellitus Surgical History No pertinent past surgical history Family & Social History Family History Mother Diabetes mellitus History of heart disease Hypertension Grandfather Cancer Hypertension Grandmother History of heart disease Grandfather Hypertension History of heart disease Social History: household members none Prior Living Arrangements Apartment/Condo Safety & Behavioral: Feels Safe in Current Yes Environment Been Physically Hurt or No Threatened By a Person Tobacco & Substance use: Smoking Status Former smoker alcohol intake current alcohol intake frequency holiday/special occasion Substance Use Type does not use Meds Home Medications and Allergies Home Medications Medication Instructions Recorded Confirmed Type aspirin 81 mg tablet,delayed 81 mg PO DAILY 10/24/20 10/28/22 History release lisinopril 10 mg tablet 10 mg PO DAILY #90 tabs 05/17/22 10/28/22 Rx glipizide 10 mg tablet, extended 10 mg PO DAILY #90 tabs 06/06/22 10/28/22 Rx release 24 hr metformin 500 mg tablet 1,000 mg PO BID #360 tabs 06/06/22 10/28/22 Rx pravastatin 20 mg tablet 20 mg PO BEDTIME #90 tabs 07/16/22 10/28/22 Rx doxycycline hyclate 100 mg tablet 100 mg PO BID #20 tabs 10/23/22 Rx Allergies Allergy/AdvReac Type Severity Reaction Status Date / Time No Known Drug Allergies Allergy Verified 10/28/22 11:47 Review of Systems Review of Systems Narrative: All other systems reviewed with the patient and are negative unless otherwise stated. Exam Vital Signs (past 8 hours): - 10/28/22 07:29 10/28/22 07:29 10/28/22 07:30 Temperature Pulse Rate 90 90 Respiratory Rate Blood Pressure 117/64 Pulse Oximetry 94 93 Oxygen Delivery Method Room Air Oxygen Flow Rate 10/28/22 07:57 10/28/22 08:00 10/28/22 08:21 Temperature 98.2 F Pulse Rate 87 89 Respiratory Rate 18 18 Blood Pressure 102/56 L 112/59 L Pulse Oximetry 95 Oxygen Delivery Method Oxygen Flow Rate 10/28/22 08:19 10/28/22 08:19 10/28/22 08:30 Temperature Pulse Rate 88 86 Respiratory Rate Blood Pressure 112/59 L Pulse Oximetry 93 93 Oxygen Delivery Method Room Air Oxygen Flow Rate 10/28/22 08:36 10/28/22 08:38 10/28/22 08:38 Temperature 98.7 F Pulse Rate 85 86 Respiratory Rate 18 Blood Pressure 117/62 117/62 Pulse Oximetry 92 Oxygen Delivery Method Oxygen Flow Rate 10/28/22 09:00 10/28/22 09:30 10/28/22 10:02 Temperature 98.1 F Pulse Rate 85 85 83 Respiratory Rate 18 Blood Pressure 120/68 Pulse Oximetry 95 92 Oxygen Delivery Method Room Air Room Air Oxygen Flow Rate 10/28/22 10:13 10/28/22 10:28 10/28/22 10:28 Temperature 98.1 F 98.5 F 98.5 F Pulse Rate 84 81 81 Respiratory Rate 14 18 18 Blood Pressure 120/68 122/64 122/64 Pulse Oximetry Oxygen Delivery Method Oxygen Flow Rate 10/28/22 10:00 10/28/22 10:00 10/28/22 10:28 Temperature Pulse Rate 84 84 Respiratory Rate 18 Blood Pressure 120/68 Pulse Oximetry 93 92 Oxygen Delivery Method Room Air Oxygen Flow Rate 10/28/22 10:28 10/28/22 10:30 10/28/22 11:00 Temperature Pulse Rate 82 85 Respiratory Rate Blood Pressure 122/64 Pulse Oximetry 92 95 Oxygen Delivery Method Room Air Oxygen Flow Rate 10/28/22 11:40 10/28/22 13:02 10/28/22 13:05 Temperature 99.5 F 97.3 F L Pulse Rate 84 88 84 Respiratory Rate 14 16 14 Blood Pressure 119/63 113/73 113/75 Pulse Oximetry 96 98 96 Oxygen Delivery Method Room Air Nasal Cannula Nasal Cannula Oxygen Flow Rate 4 4 10/28/22 13:15 10/28/22 13:21 10/28/22 13:30 Temperature 97.4 F L Pulse Rate 82 82 81 Respiratory Rate 14 14 18 Blood Pressure 117/71 121/68 123/74 Pulse Oximetry 97 96 92 Oxygen Delivery Method Nasal Cannula Room Air Oxygen Flow Rate 3 0 10/28/22 14:34 Temperature Pulse Rate 79 Respiratory Rate 16 Blood Pressure 129/77 Pulse Oximetry 93 Oxygen Delivery Method Oxygen Flow Rate 0 Oxygen Delivery Method Room Air Oxygen Flow Rate 0 Narrative Exam Narrative: General:? Patient is well developed and well nourished, in no distress at this time. HEENT:? Normocephalic, atraumatic, extraocular muscles intact, oral pharynx is clear and mucous membranes are moist. Neck: supple and symmetric, trachea is midline, no cervical adenopathy. Negative for JVD Chest:? Normal AP diameter and contour without kyphoscoliosis, no tachypnea, equal chest rise bilaterally. Lungs:? CTA b/l no wheezing rhonchi or rales. Cardio:?RRR no m/r/g. Abdomen: S NT ND. Musculoskeletal:? Muscle strength and tone are equal within normal limits. New R foot amputation with wound vac in place. Extremities: No edema or joint effusions. No cyanosis or clubbing. Skin:? RLE cellulitis extending past ankle. Neuro:? Alert , slightly groggy after surgery, no focal deficits. Psych:? Patient has a well-kept appearance, slightly flat affect, mental status attitude thought context and judgment are appropriate for age. Objective Labs 10/28/22 15:56 10/28/22 05:20 Labs: Laboratory Results - last 24 hr 10/27/22 10/27/22 10/27/22 23:19 23:37 23:37 WBC 11.9 H RBC 2.89 L Hgb 7.6 L Hct 23.1 L MCV 80.0 MCH 26.1 MCHC 32.7 RDW 17.4 H Plt Count 440 H Neut % (Auto) 85.4 H Lymph % (Auto) 6.7 L [place] % (Auto) 7.3 Eos % (Auto) 0.4 L Baso % (Auto) 0.2 Neut # (Auto) 93589 H Lymph # (Auto) 800 L [place] # (Auto) 900 Eos # (Auto) 100 Baso # (Auto) 0 ESR 6 VBG pH 7.35 VBG pCO2 32.3 L VBG pO2 19 L VBG HCO3 18 L VBG Total CO2 19 L VBG O2 Saturation 29 L VBG Base Excess -8.0 L FiO2 21 Sodium 120 L Potassium 5.9 H D Chloride 93 L Carbon Dioxide 15 L BUN 30 H Creatinine 1.90 H Estimated GFR 42 L BUN/Creatinine Ratio 15.8 Glucose 532 H* Hemoglobin A1c Lactate Calcium 8.6 Magnesium 1.3 L Iron TIBC % Saturation Transferrin Total Bilirubin 1.1 AST 78 H ALT 77 H Alkaline Phosphatase 131 H Total Creatine Kinase 71 CK-MB (CK-2) TNP CK-MB (CK-2) Rel Index TNP Troponin I < 0.012 C-Reactive Protein 23.2 H Total Protein 7.6 Albumin 3.5 Globulin 4.1 Albumin/Globulin Ratio 0.9 L Lipase 365 H D Procalcitonin Urine RBC Urine WBC Ur Squamous Epith Cells Urine Bacteria Ketones SARS-CoV-2 (PCR) Blood Type Antibody Screen Crossmatch 10/27/22 10/27/22 10/28/22 23:37 23:37 04:33 WBC RBC Hgb Hct MCV MCH MCHC RDW Plt Count Neut % (Auto) Lymph % (Auto) [place] % (Auto) Eos % (Auto) Baso % (Auto) Neut # (Auto) Lymph # (Auto) [place] # (Auto) Eos # (Auto) Baso # (Auto) ESR VBG pH VBG pCO2 VBG pO2 VBG HCO3 VBG Total CO2 VBG O2 Saturation VBG Base Excess FiO2 Sodium Potassium Chloride Carbon Dioxide BUN Creatinine Estimated GFR BUN/Creatinine Ratio Glucose Hemoglobin A1c Lactate 1.1 Calcium Magnesium Iron TIBC % Saturation Transferrin Total Bilirubin AST ALT Alkaline Phosphatase Total Creatine Kinase CK-MB (CK-2) CK-MB (CK-2) Rel Index Troponin I C-Reactive Protein Total Protein Albumin Globulin Albumin/Globulin Ratio Lipase Procalcitonin Urine RBC 1-5/hpf D Urine WBC 0-1/hpf Ur Squamous Epith Cells 0-1 /hpf Urine Bacteria Few (2-10) H Ketones SARS-CoV-2 (PCR) Negative Blood Type Antibody Screen Crossmatch 10/28/22 10/28/22 10/28/22 05:20 05:35 05:35 WBC 8.7 RBC 2.45 L Hgb 6.3 L* Hct 19.4 L* MCV 79.4 L MCH 25.8 L MCHC 32.6 RDW 17.6 H Plt Count 354 Neut % (Auto) 79.2 H Lymph % (Auto) 11.0 L [place] % (Auto) 8.5 Eos % (Auto) 0.6 L Baso % (Auto) 0.7 Neut # (Auto) 6900 Lymph # (Auto) 1000 L [place] # (Auto) 700 Eos # (Auto) 100 Baso # (Auto) 100 ESR VBG pH VBG pCO2 VBG pO2 VBG HCO3 VBG Total CO2 VBG O2 Saturation VBG Base Excess FiO2 Sodium 125 L Potassium 5.0 Chloride 96 L Carbon Dioxide 19 L BUN 27 H Creatinine 1.61 H Estimated GFR 51 L BUN/Creatinine Ratio 16.8 Glucose 457 H Hemoglobin A1c 10.8 H Lactate Calcium 8.1 L Magnesium Iron TIBC % Saturation Transferrin Total Bilirubin 0.2 AST 50 ALT 65 H Alkaline Phosphatase 122 Total Creatine Kinase CK-MB (CK-2) CK-MB (CK-2) Rel Index Troponin I C-Reactive Protein Total Protein 6.0 L Albumin 2.6 L Globulin 3.4 Albumin/Globulin Ratio 0.8 L Lipase Procalcitonin 2.58 H Urine RBC Urine WBC Ur Squamous Epith Cells Urine Bacteria Ketones SARS-CoV-2 (PCR) Blood Type Antibody Screen Crossmatch 10/28/22 10/28/22 10/28/22 05:35 06:15 07:57 WBC RBC Hgb Hct MCV MCH MCHC RDW Plt Count Neut % (Auto) Lymph % (Auto) [place] % (Auto) Eos % (Auto) Baso % (Auto) Neut # (Auto) Lymph # (Auto) [place] # (Auto) Eos # (Auto) Baso # (Auto) ESR VBG pH 7.40 VBG pCO2 28.3 L VBG pO2 30 L VBG HCO3 18 L VBG Total CO2 19 L VBG O2 Saturation 60 L VBG Base Excess -7.0 L FiO2 20 Sodium Potassium Chloride Carbon Dioxide BUN Creatinine Estimated GFR BUN/Creatinine Ratio Glucose Hemoglobin A1c Lactate Calcium Magnesium Iron < 10 L TIBC 204 L % Saturation 5 L Transferrin 140 L Total Bilirubin AST ALT Alkaline Phosphatase Total Creatine Kinase CK-MB (CK-2) CK-MB (CK-2) Rel Index Troponin I C-Reactive Protein Total Protein Albumin Globulin Albumin/Globulin Ratio Lipase Procalcitonin Urine RBC Urine WBC Ur Squamous Epith Cells Urine Bacteria Ketones SARS-CoV-2 (PCR) Blood Type A Negative Antibody Screen Negative Crossmatch See Detail 10/28/22 08:00 WBC RBC Hgb Hct MCV MCH MCHC RDW Plt Count Neut % (Auto) Lymph % (Auto) [place] % (Auto) Eos % (Auto) Baso % (Auto) Neut # (Auto) Lymph # (Auto) [place] # (Auto) Eos # (Auto) Baso # (Auto) ESR VBG pH VBG pCO2 VBG pO2 VBG HCO3 VBG Total CO2 VBG O2 Saturation VBG Base Excess FiO2 Sodium Potassium Chloride Carbon Dioxide BUN Creatinine Estimated GFR BUN/Creatinine Ratio Glucose Hemoglobin A1c Lactate Calcium Magnesium Iron TIBC % Saturation Transferrin Total Bilirubin AST ALT Alkaline Phosphatase Total Creatine Kinase CK-MB (CK-2) CK-MB (CK-2) Rel Index Troponin I C-Reactive Protein Total Protein Albumin Globulin Albumin/Globulin Ratio Lipase Procalcitonin Urine RBC Urine WBC Ur Squamous Epith Cells Urine Bacteria Ketones 0.34 H SARS-CoV-2 (PCR) Blood Type Antibody Screen Crossmatch Assessment & Plan Assessment & Plan narrative: 1. Sepsis secondary to Strep intermedius and MSSA bacteremia secondary to L 1st toe osteomyelitis with severe DARIEL, improving - continue unasyn 3g q6 hours for now, cultures have returned from 10/23 (other than strep intermedius) but will wait to see repeat cultures drawn in the ER. - wound cultures with strep intermedius, sensitive to linezolid. Blood cultures with MSSA, and strep intermedius still pending sensitivities. - appreciate orthopedic surgery, s/p L 1st toe amputation and wound vac in place. - initially was on vanco, with cultures from 10/23 okay to stop at this time. Continue unasyn. - SOFA score of 2 based on creatinine of 2.6 from 10/23 lab evaluation. - continue IV fluids, LR ordered. - follow up blood and operative cultures from today, 10/28. 2. type 2 diabetes, uncontrolled - A1c >10%. - hold oral medications given acidosis. Start lantus 15 and sliding scale. Adjust as needed. - diabetic diet. 3. DARIEL - likely due to dehydration from hyperglycemia, sepsis. Improved from 2.6 on 10/23, returned today with creatinine of 1.6. - continue to follow daily. 4. Acute on chronic anemia, present on admission, iron deficiency - no obvious signs or symptoms of bleeding. Previous unremarkable colonoscopy except for hemorrhoids. S/p 2 U PRBC transfusion, will repeat h/h tonight. - consider EGD depending on trend after transfusion. Consider PPI. 5. HTN - continue home lisinopril 6. HLD - change home statin to formulary atorvastatin. 7. E. faecalis cystitis, prior to admission - will be treated with above antibiotics. 8. Hypomagnesemia, acute - Mg 1.3, repleted IV in the ER. Will follow. 9. Obesity -The patient is at much higher risk for medical and surgical complications because of his obesity. This increases the difficulty and complexity of medical and surgical interventions and increases the chances of poor outcomes such as morbidity and mortality Code: Full, surrogate patient states is his sister DVT: Saix I have utilized all available immediate resources to obtain, update, or review the patient's current medications. Discussed care with ER provider and bedside nurse. Reviewed prior documentation, blood, wound, and urine cultures. Reviewed outpatient documentation from PCP as well. COVID-19 COVID-19 status: Negative Time Spent With Patient Critical Care time: I spent a total of [] minutes of critical care time on this patient's care today; this time is exclusive of procedural time. Scores SOFA PaO2/FIO2: >=400 mmHg Platelets: >= 150 Bilirubin: < 1.2 mg/dL Hypotension: MAP >= 70 mmHg [place] Coma Scale: 15 Renal: Creatinine 2.0-3.4 mg/dL SOFA Score: 2 Quality MIPS - Admit I confirm the patient?s Advance Care Plan is present, Code status is documented, Surrogate decision maker is in patient?s record [If Yes, STOP here]: Yes
[2022-10-28] MEDS: INSULIN LISPRO 100 UNIT/ML 3ML VIAL SUBCUT ×3 (15:19→21:28)
[2022-10-28] MEDS: HYDROMORPHONE 1 MG INJ IV ×2 (15:35→21:25)
[2022-10-28 16:19] LABS: Hematocrit 22.3 % (41-53); Hemoglobin 7.6 g/dL (13.5-17.5)
[2022-10-28] MEDS: AMPICILLIN/SULBACTAM 3 GM 3 GM in SODIUM CHLORIDE 0.9% 100 ML IV ×2 (16:36→21:28)
[2022-10-28] MEDS: ATORVASTATIN 20 MG TABLET PO (21:27)
[2022-10-28] MEDS: INSULIN GLARGINE 100 UNIT/ML 3ML PEN 15 UNIT SUBCUT (21:29)
[2022-10-29] VITALS (11 sets, daily range): BP systolic 107–129; BP diastolic 59–69; PULSE 77–89; RESP 18–20; TEMP 36.1–36.7; O2SAT 93–97
[2022-10-29] MEDS: OXYCODONE IR 5 MG TABLET PO ×3 (01:40→20:10)
[2022-10-29] MEDS: AMPICILLIN/SULBACTAM 3 GM 3 GM in SODIUM CHLORIDE 0.9% 100 ML IV ×2 (02:52→11:00)
[2022-10-29 05:50] LABS: Add Manual Diff / Slide Review NO; Basophils Absolute Auto 100 /uL (0-100); Basophils Percent Auto 0.9 % (0-2); Eosinophils Absolute Auto 100 /uL (0-450); Hematocrit 23.8 % (41-53); Lymphocytes Absolute Auto 1000 /uL (1100-4500); Lymphocytes Percent Auto 11.7 % (25-40); Mean Corpuscular HGB Conc 33.6 % (30-36); Mean Corpuscular Hemoglobin 27.3 PG (26-34); Mean Corpuscular Volume 81.1 fL (80-100); Monocytes Absolute Auto 700 /uL (0-900); Monocytes Percent Auto 7.7 % (3-14); Neutrophils Absolute Auto 6700 /uL (1500-7000); Neutrophils Percent Auto 78.7 % (50-75); Platelet Count 357 X10^3/uL (150-400); Red Blood Cell Count 2.93 X10^6/uL (4.5-5.9); Red Cell Distribution Width 17.3 % (11.6-14.8); White Blood Cell Count 8.5 X10^3/uL (4.5-11.0)
[2022-10-29 06:17] LABS: Alanine Aminotransferase 57 IU/L (<50); Albumin 2.5 g/dL (3.5-5.0); Albumin Globulin Ratio 0.7 (1.0-2.8); Alkaline Phosphatase 112 U/L (38-126); Aspartate Aminotransferase 41 IU/L (17-59); BUN Creatinine Ratio 16.7 (6-22); Bilirubin Total 0.4 mg/dL (0.2-1.3); Blood Urea Nitrogen 22 mg/dL (9-20); Calcium 8.1 mg/dL (8.4-10.2); Carbon Dioxide 20 mmol/L (22-32); Chloride 101 mmol/L (98-107); Estimated Glomerular Filt Rate > 60 mL/min (>60); Globulin 3.4 g/dL (1.7-4.1); Glucose 262 mg/dL (70-100); HEMOLYSIS < 15 (0-50); Magnesium 1.5 mg/dL (1.6-2.3); Potassium 4.2 mmol/L (3.4-5.1); Sodium 129 mmol/L (137-145); Total Protein 5.9 g/dL (6.3-8.2)
--- NOTE | 2022-10-29 06:40 | PC.NURSE ---
Pt had one episode of incontinent stool in bed. Pt states he was unaware of it and that when he is really sick sometimes this happens. Bedding changed, brief placed on.
--- NOTE | 2022-10-29 07:46 | PM.PNPO.1 ---
Subjective Subjective Date Patient Seen: 10/29/22 Time Patient Seen: 07:47 Interval history: Gutierrez is complaining of moderate left foot pain this morning, well controlled with IV Dilaudid last night and oral oxycodone today. He denies any fevers, chills, night sweats. Current cultures taken on 10/28/22 are still pending including toe cultures, blood, urine. He is currently on Unasyn IV antibiotics. Wound VAC is in place. On 10/23/22, he had positive blood cultures for both strep intermedius and staph aureus; left foot demonstrated strep intermedius; urinalysis demonstrated positive Enterococcus faecalis. Exam Vital Signs (past 8 hours): - 10/29/22 00:06 10/29/22 00:06 10/29/22 04:00 Temperature 97.8 F 98.0 F Pulse Rate 82 78 Respiratory Rate 18 18 Blood Pressure 118/62 111/62 Pulse Oximetry 96 96 96 Oxygen Delivery Method Oxygen Flow Rate 1 1 10/29/22 04:00 Temperature Pulse Rate Respiratory Rate Blood Pressure Pulse Oximetry 96 Oxygen Delivery Method Nasal Cannula Oxygen Flow Rate 1 Oxygen Delivery Method Nasal Cannula Oxygen Flow Rate 1 Narrative Exam Narrative: Pleasant 52-year-old male, resting comfortably in bed, no acute distress. Left foot 1st ray partial amputation with wound VAC in place. Surrounding skin is erythematous and mildly warm. No extension of erythema beyond the sharpie demarcation line at his ankle. He is able to wiggle his toes bilaterally. No sensation, decreased capillary refill, but feet are warm and dry. Unable to palpate DP pulse due to edema. Bilateral calves are soft and nontender to palpation. Objective Labs 10/29/22 05:25 10/29/22 05:25 Labs: Laboratory Results - last 24 hr 10/28/22 10/28/22 10/28/22 05:35 06:15 07:57 WBC RBC Hgb Hct MCV MCH MCHC RDW Plt Count Neut % (Auto) Lymph % (Auto) [place] % (Auto) Eos % (Auto) Baso % (Auto) Neut # (Auto) Lymph # (Auto) [place] # (Auto) Eos # (Auto) Baso # (Auto) VBG pH 7.40 VBG pCO2 28.3 L VBG pO2 30 L VBG HCO3 18 L VBG Total CO2 19 L VBG O2 Saturation 60 L VBG Base Excess -7.0 L FiO2 20 Sodium Potassium Chloride Carbon Dioxide BUN Creatinine Estimated GFR BUN/Creatinine Ratio Glucose Calcium Magnesium Iron < 10 L TIBC 204 L % Saturation 5 L Transferrin 140 L Total Bilirubin AST ALT Alkaline Phosphatase Total Protein Albumin Globulin Albumin/Globulin Ratio Ketones Blood Type A Negative Antibody Screen Negative Crossmatch See Detail 10/28/22 10/28/22 10/29/22 08:00 15:56 05:25 WBC 8.5 RBC 2.93 L Hgb 7.6 L 8.0 L Hct 22.3 L 23.8 L MCV 81.1 MCH 27.3 MCHC 33.6 RDW 17.3 H Plt Count 357 Neut % (Auto) 78.7 H Lymph % (Auto) 11.7 L [place] % (Auto) 7.7 Eos % (Auto) 1.0 L Baso % (Auto) 0.9 Neut # (Auto) 6700 Lymph # (Auto) 1000 L [place] # (Auto) 700 Eos # (Auto) 100 Baso # (Auto) 100 VBG pH VBG pCO2 VBG pO2 VBG HCO3 VBG Total CO2 VBG O2 Saturation VBG Base Excess FiO2 Sodium Potassium Chloride Carbon Dioxide BUN Creatinine Estimated GFR BUN/Creatinine Ratio Glucose Calcium Magnesium Iron TIBC % Saturation Transferrin Total Bilirubin AST ALT Alkaline Phosphatase Total Protein Albumin Globulin Albumin/Globulin Ratio Ketones 0.34 H Blood Type Antibody Screen Crossmatch 10/29/22 05:25 WBC RBC Hgb Hct MCV MCH MCHC RDW Plt Count Neut % (Auto) Lymph % (Auto) [place] % (Auto) Eos % (Auto) Baso % (Auto) Neut # (Auto) Lymph # (Auto) [place] # (Auto) Eos # (Auto) Baso # (Auto) VBG pH VBG pCO2 VBG pO2 VBG HCO3 VBG Total CO2 VBG O2 Saturation VBG Base Excess FiO2 Sodium 129 L Potassium 4.2 Chloride 101 Carbon Dioxide 20 L BUN 22 H Creatinine 1.32 H Estimated GFR > 60 BUN/Creatinine Ratio 16.7 Glucose 262 H D Calcium 8.1 L Magnesium 1.5 L Iron TIBC % Saturation Transferrin Total Bilirubin 0.4 AST 41 ALT 57 H Alkaline Phosphatase 112 Total Protein 5.9 L Albumin 2.5 L Globulin 3.4 Albumin/Globulin Ratio 0.7 L Ketones Blood Type Antibody Screen Crossmatch [facility] Medical History ADHD (~1978) Alcoholism in remission Essential hypertension (01/27/17) Hematuria Hyperlipidemia associated with type 2 diabetes mellitus Hypertensive emergency Obesity (BMI 30.0-34.9) Type 2 diabetes mellitus Surgical History No pertinent past surgical history Family History Mother Diabetes mellitus History of heart disease Hypertension Grandfather Cancer Hypertension Grandmother History of heart disease Grandfather Hypertension History of heart disease Social History household members: none Smoking Status: Former smoker alcohol intake: current Assessment & Plan Post-op Postoperative Procedures: Procedures Operation Date: 10/28/22 12:00 Actual Procedure Side Surgeon p Amputation toe Left Leroy Dennis MD Postoperative day: 1 Postoperative status narrative: -stable status post left 1st toe amputation -diabetes mellitus, acute renal failure, anemia-improved s/p transfusion 10/28/22 Postoperative plan narrative: -mobilize with PT. there is no off note from his surgery, I am checking with Dr. Cunningham in regards to his weight-bearing status. -continue multimodal pain management -aspirin 81 mg b.i.d. times 6 weeks for DVT prophylaxis -continue with Unasyn until cultures are finalized: current cultures taken on 10/28/22 are still pending including toe cultures, blood, urine. 10/23/22, he had positive blood cultures for both strep intermedius and staph aureus; left foot demonstrated strep intermedius; urinalysis demonstrated positive Enterococcus faecalis. -appreciate the hospitalist's help managing his medical issues -waiting to hear back from Dr. Dennis in regards to his postoperative plan
[2022-10-29] MEDS: lisinopriL 10 MG TABLET PO (08:14)
[2022-10-29] MEDS: ASPIRIN EC 81 MG TABLET PO ×2 (08:14→20:10)
[2022-10-29] MEDS: FERROUS SULFATE 325 MG TABLET PO (08:14)
[2022-10-29] MEDS: INSULIN LISPRO 100 UNIT/ML 3ML VIAL SUBCUT ×5 (08:17→20:12)
--- NOTE | 2022-10-29 09:07 | CM.DANOTE ---
Addendum entered by COLTON Martines 10/29/22 12:05: ADD: Per MD and Ortho, plan is for pt to return to OR on 11/01 for possible I&D and wound vac change and potential for further surgery and risk for BKA. Still waiting for cultures to determine IV-Abx duration and frequency. SW met bedside with pt and explained role and pt confirms that he lives alone on [address] in an apt with no steps to enter. Pt drove himself to the hospital and vehicle is in the parking lot. Pt denies any local family but does have some friends and neighbors for support. Pt works at baseline and denies any DME at baseline and denies any hx of SNF or HH. SW discussed possible options of outpt infusion clinic on [facility] if once daily dose, [facility] and HH, or SNF all depending on pt's mobility, IV-Abx needs and coverage. Pt is hopeful for home but willing to consider all options depending on his needs at d/c. Pt somewhat overwhelmed but agreeable with planning once needs better identified. SW made initial referral to [facility] and [facility] to follow as needs get clearer and faxed clinicals. Plan: SW to follow closely after pt returns to OR with Ortho on Friday to determine if further surgery needed, how long wound vac needed, cultures to determine which IV-Abx frequency and duration. Outpt infusion vs home infusion and HH vs SNF. COLTON Martines Original Note: Patient is a 52 yo male who was admitted on 10/28/22 for Infected Wound. Pt has [employer] for insurance and his PCP is Dr. Giorgi Lozada. EMR was reviewed. Per , pt recently at [place] ED and recommendation to be admitted for diabetic foot ulcer but pt declined as he had to go home first and then returned with results from ED showing osteomyelitis of L 1st toe. Pt started on IV-Abx. Per Ortho, pt had toe amputation in the OR last night and has wound vac in place and currently remains on IV-Abx and awaiting final cultures and non-weight bearing status at this time and to work with PT. SW left [facility] for Ortho PA as no PT orders placed yet. SW attempted to meet bedside with pt twice and once pt requested SW come back as needed to use urinal and second attempt pt was on BSC. Plan: SW to follow for bedside assessment with pt and waiting for PT eval and recommendations to see if pt can safely return home, recommendations from Ortho on how long wound vac needed and if IV-Abx needed at d/c. COLTON Martines Discharge Planning/Care Management CM Discharge Assessment Start: 10/29/22 09:04 Freq: Status: Active Protocol: Document 10/29/22 09:05 BF (Rec: 10/29/22 09:07 [id number]) Discharge Planning Assessment Assigned Clinical Quality Rn COLTON Nuñez DPOA/Assigned Designee Name informally spouse [place] Contact Information [phone] Advance Directives? No Advance Directives on File No History Provided By Patient,Medical Record Has Patient been admitted in last 30 No days? Prior Living Arrangements Apartment/Condo Household Members spouse Type of transporation used prior to Drives own vehicle admit Independent with ADL's Yes Is patient alert and oriented? Yes Caregiver for Another No Patient/Family Preference Home with Home Health Comment Pending PT/OT eval and recommendations Barriers to Discharge No Comment Waiting cultures to confirm no IV-Abx needed at d/c Discharge Plan Home Transportation Arrangement Likely family or friend to transport back to [place] Additional Comment Pending cultures and PT eval Whiteboard Updated in Patient Room with Yes name and ext. # of Clinical Quality Rn Review Status In Process Please Provide Date Initial DC 10/29/22 Assessment Was Performed Next Review Type Continued Stay Review
[2022-10-29] MEDS: MAGNESIUM CHLORIDE 64 MG TABLET 128 MG PO (10:45)
--- NOTE | 2022-10-29 10:55 | PM.PN.1 ---
Subjective Subjective Interval history: 52 year old male admitted with abscess of his left foot, bacteremia, s/p 1st ray amputation with orthopedics and wound vac placement. Discussed with orthopedics, plan is for return to OR for additional washout and wound vac change, possible BKA on Friday, 11/01. Patient reports pain control is suboptimal, otherwise no fever, chills, nausea, or vomiting. Exam Vital Signs (past 8 hours): - 10/29/22 04:00 10/29/22 04:00 10/29/22 07:47 Temperature 98.0 F 97.8 F Pulse Rate 78 84 Respiratory Rate 18 18 Blood Pressure 111/62 129/69 Pulse Oximetry 96 96 96 Oxygen Delivery Method Nasal Cannula Oxygen Flow Rate 1 1 1 10/29/22 08:14 10/29/22 10:00 10/29/22 07:00 Temperature Pulse Rate 84 Respiratory Rate Blood Pressure 129/69 Pulse Oximetry 93 Oxygen Delivery Method Nasal Cannula Nasal Cannula Oxygen Flow Rate 1 Oxygen Delivery Method Nasal Cannula Oxygen Flow Rate 1 Narrative Exam Narrative: General:? Patient is well developed and well nourished, in no distress at this time. Slight pallor. HEENT:? Normocephalic, atraumatic, extraocular muscles intact, oral pharynx is clear and mucous membranes are moist. Neck: supple and symmetric, trachea is midline, no cervical adenopathy. Negative for JVD Chest:? Normal AP diameter and contour without kyphoscoliosis, no tachypnea, equal chest rise bilaterally. Lungs:? CTA b/l no wheezing rhonchi or rales. Cardio:?RRR no m/r/g. Abdomen: S NT ND. Musculoskeletal:? Muscle strength and tone are equal within normal limits. New R 1st toe amputation with wound vac in place. Extremities: Trace edema LLE with mild ankle swelling. No cyanosis or clubbing. Skin:? RLE cellulitis similar extension past ankle but less erythematous and less warmth today. Neuro:? Alert, oriented, no focal deficits. Psych:? Patient has a well-kept appearance, slightly flat affect, mental status attitude thought context and judgment are appropriate for age. Objective Labs 10/29/22 05:25 10/29/22 05:25 Labs: Laboratory Results - last 24 hr 10/28/22 10/28/22 10/29/22 05:35 15:56 05:25 WBC 8.5 RBC 2.93 L Hgb 7.6 L 8.0 L Hct 22.3 L 23.8 L MCV 81.1 MCH 27.3 MCHC 33.6 RDW 17.3 H Plt Count 357 Neut % (Auto) 78.7 H Lymph % (Auto) 11.7 L [place] % (Auto) 7.7 Eos % (Auto) 1.0 L Baso % (Auto) 0.9 Neut # (Auto) 6700 Lymph # (Auto) 1000 L [place] # (Auto) 700 Eos # (Auto) 100 Baso # (Auto) 100 Sodium Potassium Chloride Carbon Dioxide BUN Creatinine Estimated GFR BUN/Creatinine Ratio Glucose Calcium Magnesium Iron < 10 L TIBC 204 L % Saturation 5 L Transferrin 140 L Total Bilirubin AST ALT Alkaline Phosphatase Total Protein Albumin Globulin Albumin/Globulin Ratio 10/29/22 05:25 WBC RBC Hgb Hct MCV MCH MCHC RDW Plt Count Neut % (Auto) Lymph % (Auto) [place] % (Auto) Eos % (Auto) Baso % (Auto) Neut # (Auto) Lymph # (Auto) [place] # (Auto) Eos # (Auto) Baso # (Auto) Sodium 129 L Potassium 4.2 Chloride 101 Carbon Dioxide 20 L BUN 22 H Creatinine 1.32 H Estimated GFR > 60 BUN/Creatinine Ratio 16.7 Glucose 262 H D Calcium 8.1 L Magnesium 1.5 L Iron TIBC % Saturation Transferrin Total Bilirubin 0.4 AST 41 ALT 57 H Alkaline Phosphatase 112 Total Protein 5.9 L Albumin 2.5 L Globulin 3.4 Albumin/Globulin Ratio 0.7 L [facility] Medical History ADHD (~1978) Alcoholism in remission Essential hypertension (01/27/17) Hematuria Hyperlipidemia associated with type 2 diabetes mellitus Hypertensive emergency Obesity (BMI 30.0-34.9) Type 2 diabetes mellitus Surgical History No pertinent past surgical history Family History Mother Diabetes mellitus History of heart disease Hypertension Grandfather Cancer Hypertension Grandmother History of heart disease Grandfather Hypertension History of heart disease Social History household members: spouse Smoking Status: Former smoker alcohol intake: current Assessment & Plan Assessment & Plan narrative: 1. Sepsis secondary to Strep intermedius and MSSA bacteremia secondary to L 1st toe osteomyelitis with severe DARIEL, improving - continuef unasyn 3g q6 hours initially, cultures have returned from 10/23 and will narrow to ceftriaxone 2 g q24 hours based on sensitivities of MSSA and strep intermedius. - wound cultures with strep intermedius, sensitive to linezolid. Blood cultures with MSSA, and strep intermedius as discussed above. - appreciate orthopedic surgery, s/p L 1st toe amputation and wound vac in place. Plan to return to OR on Wednesday 11/01, may still need BKA. - initially was on vanco, with cultures from 10/23 this was discontinued. - SOFA score of 2 based on creatinine of 2.6 from 10/23 lab evaluation. - continue IV fluids today, LR ordered. Okay to stop likely tomorrow. - follow up blood and operative cultures from 10/28. If negative he will need likely 2 weeks of IV antibiotics (may be more). Will order TTE, but if rapid clearance this supports shorter duration. Consider ID consultation when more is known about the extent of his foot / ankle infection (? osteo in remaining foot / ankle). Consider MRI depending on response to therapies. 2. type 2 diabetes, uncontrolled - A1c >10%. - held oral medications given acidosis which is improving today. May have had mild DKA on initial presentation on 10/23. Started lantus 15, but will increase to 25 U tongiht, and continue sliding scale. Continue to adjust as needed. Patient is agreeable to discharge home on insulin, interested in diabetes education, appreciate dietary consultation today. - diabetic diet. 3. DARIEL - likely due to dehydration from hyperglycemia, sepsis. Improved from 2.6 on 10/23, now to 1.32 today. - continue to follow daily. 4. Acute on chronic anemia, present on admission, iron deficiency - no obvious signs or symptoms of bleeding. Previous unremarkable colonoscopy except for hemorrhoids. S/p 2 U PRBC transfusion, with improvement today to a Hg of 8. - consider EGD depending on trend. Consider PPI. 5. HTN - continue home lisinopril 6. HLD - change home statin to formulary atorvastatin. 7. E. faecalis cystitis, prior to admission - will be treated with above antibiotics. 8. Hypomagnesemia, acute - Mg 1.3, repleted IV in the ER. Will follow. Slight improvement to 1.5 today. 9. Obesity -The patient is at much higher risk for medical and surgical complications because of his obesity. This increases the difficulty and complexity of medical and surgical interventions and increases the chances of poor outcomes such as morbidity and mortality - appreciate dietary consultation as discussed above. Code: Full, surrogate patient states is his sister DVT: Lovenox I have utilized all available immediate resources to obtain, update, or review the patient's current medications. Discussed care with ER provider and bedside nurse. Reviewed prior documentation, blood, wound, and urine cultures. Reviewed outpatient documentation from PCP as well. COVID-19 COVID-19 status: Negative Time Spent With Patient Critical Care time: I spent a total of [] minutes of critical care time on this patient's care today; this time is exclusive of procedural time.
[2022-10-29] MEDS: HYDROMORPHONE 1 MG INJ IV ×2 (11:08→19:51)
--- NOTE | 2022-10-29 11:36 | DI.ECHO.S_ITS ---
[facility] +---------+ : : [address] [place] [address] : : : : [id number] : : : : Phone: [phone]+ Echocardiogram Report + + :Name: GRETCHEN ENRIQUE Study Date: 10/29/2022 Height: 69 in : :[facility] ReadingLocation: Weight: 230 lb : : Gender: Male BSA: 2.2 m2 : :: 1970 Age: 52 yrs BP: 120/63 mmHg: :Reason For Study: MSSA BACTEREMIA : :Ordering Physician: JULIAN, : :KENIA PALMA Performed By: Makeda Wasserman : :Referring: KENIA JORDAN : + + Interpretation Summary The left ventricle is normal in size and wall thickness. Left ventricular systolic function appears normal without focal wall motion abnormalities. The ejection fraction is estimated to be 60-65%. Diastolic parameters suggest probable normal left ventricular diastolic function and normal filling pressures. The right ventricle is normal in size and function. The right ventricular systolic pressure is estimated to be at least 28 mmHg based on an estimated right atrial pressure of 3 mm Hg. The left atrial size is normal. Right atrial size is normal. There is no significant valvular heart disease. There is no obvious valvular vegetation identified on this exam. Consider VIDAL if there is a high degree of clinical suspicion for endocarditis and clinically appropriate. The aortic root is normal size. Procedure: A two-dimensional transthoracic echocardiogram with color flow and Doppler was performed. The study quality was technically adequate. There is no prior echocardiogram noted for this patient. The patient was in sinus rhythm with heart rates between 79-85 bpm during the exam. Left Ventricle: The left ventricle is normal in size and wall thickness. Left ventricular systolic function appears normal without focal wall motion abnormalities. The ejection fraction is estimated to be 60-65%. Diastolic parameters suggest probable normal left ventricular diastolic function and normal filling pressures. Right Ventricle: The right ventricle is normal in size and function. Atria: The left atrial size is normal. Right atrial size is normal. There is no Doppler evidence for an interatrial shunt. Mitral Valve: The mitral valve is normal in structure and function. There is trace mitral regurgitation. Aortic Valve: The aortic valve is trileaflet. The aortic valve opens well. There is no aortic valve stenosis. No aortic regurgitation is present. Tricuspid Valve: The tricuspid valve is normal in structure and function. There is mild tricuspid regurgitation. The right ventricular systolic pressure is estimated to be at least 28 mmHg based on an estimated right atrial pressure of 3 mm Hg. Pulmonic Valve: The pulmonic valve leaflets are thin and pliable; valve motion is normal. There is trace pulmonic regurgitation. There is no significant valvular heart disease. There is no obvious valvular vegetation identified on this exam. Consider VIDAL if there is a high degree of clinical suspicion for endocarditis and clinically appropriate. Great Vessels: The aortic root is normal size. The dimensions of the ascending aorta are normal. The IVC is of normal diameter and collapses greater than 50% with a sniff. This suggests a low right atrial pressure of 3 mm Hg. Pericardium/ Pleura There is no pericardial effusion. There is no pleural effusion. MMode/2D Measurements & Calculations LVIDd: 5.1 cm LVOT diam: 2.2 cm LVIDs: 3.2 cm Ao root diam: 3.5 cm FS: 37.6 % asc Aorta Diam: 3.7 cm IVSd: 0.92 cm Ao Arch Diam (Prox Trans): 3.2 cm LVPWd: 1.1 cm LV fernández. diameter/BSA (cm/m^2): 2.3 LV sys. diameter/BSA (cm/m^2): 1.4 LA A2 area: 22.9 cm2 RA long axis: 5.7 cm LA A4 area: 21.1 cm2 RA area: 15.4 cm2 LA length (vol): 6.1 cm RA vol: 35.3 ml LA vol: 67.1 ml RA : 16.1 ml/m2 LA vol index: 30.6 ml/m2 IVC diam: 1.8 cm RVD1 (basal): 3.2 cm RVD2 (mid): 3.7 cm TAPSE: 1.8 cm Doppler Measurements & Calculations Ao V2 max: 186.2 cm/sec LVOT Max [place]ne: 126.6 cm/sec Ao V2 mean: 140.5 cm/sec LV V1 max P.4 mmHg Ao max P.9 mmHg LV V1 VTI: 27.3 cm Ao mean P.4 mmHg NICKY(I,D): 2.7 cm2 Ao V2 VTI: 39.0 cm NICKY(V,D): 2.7 cm2 sev ratio: 0.70 NICKY indexed to BSA (cm^2/m^2): 1.2 MV E max tremayne: 119.9 cm/sec TR max tremayne: 251.4 cm/sec MV A max tremayne: 84.0 cm/sec TR max P.3 mmHg MV E/A: 1.4 PA V2 max: 122.1 cm/sec Med Peak E' Tremayne: 9.4 cm/sec PA V2 mean: 93.4 cm/sec E/E' med: 12.8 PA mean P.7 mmHg Lat Peak E' Tremayne: 13.5 cm/sec PA pr(Accel): 29.3 mmHg E/E' lat: 8.9 E/e' average: 10.8 MV dec time: 0.22 sec SV(LVOT): 106.7 ml Reading Physician:04:27 PM
--- NOTE | 2022-10-29 11:39 | DIET.CONS ---
Addendum entered by Helena Palm 10/29/22 13:13: Rd agrees with quality intern note below. PCP Kierra's office contacted 10/29/22 for DM Education referral request. Original Note: Dietary Consultation Note Admission Date: 10/28/2022 10:55 Assessment: 52 y/o M with PMH of HTN, T2DM, HLD, obesity, gout. Pt underwent 1st ray amputation today d/t infection. RD consulted for T2DM (A1c 10.8). Current home DM medications: Glipizide 10 mg PO daily Metformin 500 mg PO daily Met with pt at bedside to discuss diabetes management. Pt reports checking BG at home with highs in the 500s and notes feeling comfortable at around 280. Pt reports being diagnosed with T2DM in 2016 and has not had any diabetes education. Pt was interested in virtual diabetes education visits here at [facility] with conservation educator. Upon recommendation of increasing protein intake, pt noted interest in protein smoothies. At home, pts smoothies include; berries, passion fruit, water, fish oil, fiber, and kale. Pt was open to yogurt and pea protein powder additions. Pt would likely benefit from medication reevaluation and change as well as referral to outpatient DM education. Ht: 175.26 cm Wt: 104.326 kg BMI: 34.0 ABW: 79.1 kg Last BM: 10/29/22 (10/29/22 09:36) MNA: 10 Ranulfo Score: 19 Diet: 10/28/22 Dinner Carbohydrate Consistent Diet Diet Modifications: Carbohydrate level: Medium (3 CHO) Nutrition Percent Meal Consumed 100% 10/29/22 08:41 Percent Meal Consumed 100% 10/28/22 18:00 Percent Meal Consumed 25% 10/28/22 16:06 Labs: RBC 2.93 X10^6/uL (4.5-5.9) L 10/29/22 05:25 Hgb 8.0 g/dL (13.5-17.5) L 10/29/22 05:25 Hct 23.8 % (41-53) L 10/29/22 05:25 Creatinine 1.32 mg/dL (0.66-1.25) H 10/29/22 05:25 Hemoglobin A1c 10.8 % (4.0-6.0) H 10/28/22 05:35 Lactate 1.1 mmol/L (0.7-2.1) 10/27/22 23:37 Iron < 10 ug/dL (49-181) L 10/28/22 05:35 % Saturation 5 % (20-50) L 10/28/22 05:35 Nutrition Diagnosis: Altered nutrition related laboratory values (A1c, glucose) r/t uncontrolled diabetes aeb A1c 10.8% (H), glucose at 532 (H) on admission, s/p 1st ray amputation, pt reports feeling comfortable with glucose at 280 (H) and having no prior DM education. Interventions: 1. Recommend increasing protein intake to support wound healing. 2. Will send protein smoothies up with meal tray at breakfast. 3. Will call PCP Kierra to get referral to conservation educator here at [facility]. EER: 95-115 kg protein (1.2-1.5 g/kg (ABW) per wound healing) Monitoring/Evaluations: ONS tolerance, blood glucose, f/u diabetes education on Friday. Electronically Signed by: Yeny Morrow 10/29/22 11:39 Clinical Dietitian [address] [address]
[2022-10-29] MEDS: cefTRIAXone 2,000 MG in SODIUM CHLORIDE 0.9% 100 ML 200 MG IV (12:14)
[2022-10-29] MEDS: ATORVASTATIN 20 MG TABLET PO (20:10)
[2022-10-29] MEDS: INSULIN GLARGINE 100 UNIT/ML 3ML PEN 25 UNIT SUBCUT (20:12)
[2022-10-30] VITALS (8 sets, daily range): BP systolic 121–141; BP diastolic 68–78; PULSE 70–78; RESP 16–18; TEMP 36.2–36.7; O2SAT 94–97
[2022-10-30 06:02] LABS: Add Manual Diff / Slide Review NO; Basophils Absolute Auto 0 /uL (0-100); Basophils Percent Auto 0.7 % (0-2); Eosinophils Absolute Auto 100 /uL (0-450); Eosinophils Percent Auto 2.3 % (2-4); Hematocrit 23.3 % (41-53); Hemoglobin 7.9 g/dL (13.5-17.5); Lymphocytes Absolute Auto 1000 /uL (1100-4500); Lymphocytes Percent Auto 18.1 % (25-40); Mean Corpuscular HGB Conc 33.9 % (30-36); Mean Corpuscular Hemoglobin 27.6 PG (26-34); Mean Corpuscular Volume 81.4 fL (80-100); Monocytes Absolute Auto 500 /uL (0-900); Neutrophils Absolute Auto 4000 /uL (1500-7000); Neutrophils Percent Auto 69.9 % (50-75); Platelet Count 376 X10^3/uL (150-400); Red Blood Cell Count 2.86 X10^6/uL (4.5-5.9); Red Cell Distribution Width 16.6 % (11.6-14.8); White Blood Cell Count 5.7 X10^3/uL (4.5-11.0)
[2022-10-30 06:05] LABS: Alanine Aminotransferase 58 IU/L (<50); Albumin 2.6 g/dL (3.5-5.0); Albumin Globulin Ratio 0.8 (1.0-2.8); Alkaline Phosphatase 109 U/L (38-126); Aspartate Aminotransferase 38 IU/L (17-59); BUN Creatinine Ratio 19.3 (6-22); Bilirubin Total 0.2 mg/dL (0.2-1.3); Blood Urea Nitrogen 21 mg/dL (9-20); Calcium 8.4 mg/dL (8.4-10.2); Carbon Dioxide 20 mmol/L (22-32); Chloride 100 mmol/L (98-107); Estimated Glomerular Filt Rate > 60 mL/min (>60); Globulin 3.4 g/dL (1.7-4.1); Glucose 237 mg/dL (70-100); HEMOLYSIS < 15 (0-50); Magnesium 1.5 mg/dL (1.6-2.3); Potassium 4.3 mmol/L (3.4-5.1); Sodium 130 mmol/L (137-145)
--- NOTE | 2022-10-30 07:26 | P.PN_ITS ---
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 Cultures growing MSSA so narrowed to ancef. Spoke with ID who recommended transfer to [facility] for VIDAL and ID consult. Exam Vital Signs (past 8 hours): - 10/30/22 00:00 10/30/22 01:49 10/30/22 06:00 Temperature 97.5 F L Pulse Rate 75 Respiratory Rate 18 Blood Pressure 132/78 Pulse Oximetry 96 96 97 Oxygen Delivery Method Room Air Room Air Oxygen Flow Rate 0 10/30/22 04:00 Temperature 97.2 F L Pulse Rate 70 Respiratory Rate 18 Blood Pressure 130/73 Pulse Oximetry 96 Oxygen Delivery Method Oxygen Flow Rate 0 Oxygen Delivery Method Room Air Oxygen Flow Rate 0 Narrative Exam Narrative: General:? Patient is well developed and well nourished, in no distress at this time. Slight pallor. Tearful. HEENT:? Normocephalic, atraumatic, extraocular muscles intact, oral pharynx is clear and mucous membranes are moist. Neck: supple and symmetric, trachea is midline, no cervical adenopathy. Negative for JVD Chest:? Normal AP diameter and contour without kyphoscoliosis, no tachypnea, equal chest rise bilaterally. Lungs:? CTA b/l no wheezing rhonchi or rales. Cardio:?RRR no m/r/g. Abdomen: S NT ND. Musculoskeletal:? Muscle strength and tone are equal within normal limits. New R 1st toe amputation with wound vac in place. Extremities: Trace edema LLE with mild ankle swelling. No cyanosis or clubbing. Skin:? RLE cellulitis similar extension past ankle but less erythematous and less warmth today. Neuro:? Alert, oriented, no focal deficits. Psych:? Patient has a well-kept appearance, slightly flat affect, mental status attitude thought context and judgment are appropriate for age. Objective Labs 10/30/22 05:00 10/30/22 05:00 Labs: Laboratory Results - last 24 hr 10/30/22 10/30/22 05:00 05:00 WBC 5.7 RBC 2.86 L Hgb 7.9 L Hct 23.3 L MCV 81.4 MCH 27.6 MCHC 33.9 RDW 16.6 H Plt Count 376 Neut % (Auto) 69.9 Lymph % (Auto) 18.1 L [place] % (Auto) 9.0 Eos % (Auto) 2.3 Baso % (Auto) 0.7 Neut # (Auto) 4000 Lymph # (Auto) 1000 L [place] # (Auto) 500 Eos # (Auto) 100 Baso # (Auto) 0 Sodium 130 L Potassium 4.3 Chloride 100 Carbon Dioxide 20 L BUN 21 H Creatinine 1.09 Estimated GFR > 60 BUN/Creatinine Ratio 19.3 Glucose 237 H Calcium 8.4 Magnesium 1.5 L Total Bilirubin 0.2 AST 38 ALT 58 H Alkaline Phosphatase 109 Total Protein 6.0 L Albumin 2.6 L Globulin 3.4 Albumin/Globulin Ratio 0.8 L PFSH Medical History ADHD (~1978) Alcoholism in remission Essential hypertension (01/27/17) Hematuria Hyperlipidemia associated with type 2 diabetes mellitus Hypertensive emergency Obesity (BMI 30.0-34.9) Type 2 diabetes mellitus Surgical History No pertinent past surgical history Family History Mother Diabetes mellitus History of heart disease Hypertension Grandfather Cancer Hypertension Grandmother History of heart disease Grandfather Hypertension History of heart disease Social History household members: spouse Smoking Status: Former smoker alcohol intake: current Assessment & Plan Assessment & Plan narrative: 1. Sepsis secondary to Strep intermedius and MSSA bacteremia from L 1st toe osteomyelitis - on unasyn 3g q6 hours initially, cultures have returned from 10/23 and will narrow to ancef 2 g q8 hours based on sensitivities of MSSA and strep intermedius. - wound cultures with strep intermedius and GPC which are likely MSSA - appreciate orthopedic surgery, s/p L 1st toe amputation and wound vac in [facility]. Plan to return to OR on Wednesday 11/01, may still need BKA. - SOFA score of 2 based on creatinine of 2.6 from 10/23 lab evaluation. - TTE negative for endocarditis, spoke with ID at [facility] who recommended transfer for VIDAL and ID consultation - on transfer list to [facility] for ID consult and VIDAL - continue wound vac 2. type 2 diabetes, uncontrolled - A1c >10%. - lantus increased to 25 U due to hyperglycemia, and continue sliding scale. Patient is agreeable to discharge home on insulin, interested in diabetes education, appreciate dietary consultation. - diabetic diet. 3. DARIEL, resolved - likely due to dehydration from hyperglycemia, sepsis. Cr now normal. - continue to follow daily. 4. Acute on chronic anemia, present on admission, iron deficiency - no obvious signs or symptoms of bleeding. Previous unremarkable colonoscopy except for hemorrhoids. S/p 2 U PRBC transfusion, with improvement today to a Hg of 8. - consider EGD depending on trend. Consider PPI. 5. HTN - continue home lisinopril 6. HLD - change home statin to formulary atorvastatin. 7. E. faecalis cystitis, prior to admission - leukocyte esterase negative and patient denies symptoms - likely contaminant 8. Hypomagnesemia, acute - Mg 1.3, repleted IV in the ER. Will follow. Slight improvement to 1.5 and given additional mag. - monitor and replete 9. Obesity -The patient is at much higher risk for medical and surgical complications because of his obesity. This increases the difficulty and complexity of medical and surgical interventions and increases the chances of poor outcomes such as morbidity and mortality - appreciate dietary consultation as discussed above. 10. Hyponatremia with element of pseudohyponatremia -Na 132 corrected due to hyperglycemia -monitor and correct sugars Code: Full, surrogate patient states is his sister DVT: Lovenox Dispo: On transfer list to [facility]. COVID-19 COVID-19 status: Negative Time Spent With Patient Critical Care time: I spent a total of [] minutes of critical care time on this patient's care today; this time is exclusive of procedural time.
--- NOTE | 2022-10-30 07:49 | P.PN_ITS ---
Subjective Subjective Date Patient Seen: 10/30/22 Time Patient Seen: 07:50 Interval history: Pain is moderate. Denies fever or chills. Exam Vital Signs (past 8 hours): - 10/30/22 00:00 10/30/22 01:49 10/30/22 06:00 Temperature 97.5 F L Pulse Rate 75 Respiratory Rate 18 Blood Pressure 132/78 Pulse Oximetry 96 96 97 Oxygen Delivery Method Room Air Room Air Oxygen Flow Rate 0 10/30/22 04:00 Temperature 97.2 F L Pulse Rate 70 Respiratory Rate 18 Blood Pressure 130/73 Pulse Oximetry 96 Oxygen Delivery Method Oxygen Flow Rate 0 Oxygen Delivery Method Room Air Oxygen Flow Rate 0 Narrative Exam Narrative: Wound VAC in place. Patient resting comfortably in bed in no apparent distress. Const General: comfortable Nutritional Appearance: average body habitus Orientation: alert Objective Labs 10/30/22 05:00 10/30/22 05:00 Labs: Laboratory Results - last 24 hr 10/30/22 10/30/22 05:00 05:00 WBC 5.7 RBC 2.86 L Hgb 7.9 L Hct 23.3 L MCV 81.4 MCH 27.6 MCHC 33.9 RDW 16.6 H Plt Count 376 Neut % (Auto) 69.9 Lymph % (Auto) 18.1 L [place] % (Auto) 9.0 Eos % (Auto) 2.3 Baso % (Auto) 0.7 Neut # (Auto) 4000 Lymph # (Auto) 1000 L [place] # (Auto) 500 Eos # (Auto) 100 Baso # (Auto) 0 Sodium 130 L Potassium 4.3 Chloride 100 Carbon Dioxide 20 L BUN 21 H Creatinine 1.09 Estimated GFR > 60 BUN/Creatinine Ratio 19.3 Glucose 237 H Calcium 8.4 Magnesium 1.5 L Total Bilirubin 0.2 AST 38 ALT 58 H Alkaline Phosphatase 109 Total Protein 6.0 L Albumin 2.6 L Globulin 3.4 Albumin/Globulin Ratio 0.8 L SPEC #: [id number] MENA: 10/28/22 STATUS: RES REQ #: [id number] SPDESC: Abscess RECD: 10/28/22-[address]: Leroy Dennis MD SOURCE: TOE ENTR: 10/28/22-[address]: Kierra,Giorgi MD Jordan,Feliz D.O. FAX TO: ORDERED: WOUND Cx and GS COMMENTS: Comment left great toe Procedure Result Verified Site Gram Stain Final 10/28/22- 1440 White blood cells Few WBCs Epithelial cells None seen Gram Positive Cocci 3+ Aerobic Culture for wounds Preliminary 10/29/22- 0831 Very Early Growth Very Early Growth: Culture too young for work-up reincubated Anaerobic Culture Pending SOURCE: Blood ENTR: 10/27/[address]: Giorgi Lozada MD FAX TO: ORDERED: Bcult Procedure Result Verified Site Blood Culture Preliminary 10/29/22- 2341 NO GROWTH AFTER 48 HOURS NO GROWTH AFTER 48 HOURS PFSH Medical History ADHD (~1978) Alcoholism in remission Essential hypertension (01/27/17) Hematuria Hyperlipidemia associated with type 2 diabetes mellitus Hypertensive emergency Obesity (BMI 30.0-34.9) Type 2 diabetes mellitus Surgical History No pertinent past surgical history Family History Mother Diabetes mellitus History of heart disease Hypertension Grandfather Cancer Hypertension Grandmother History of heart disease Grandfather Hypertension History of heart disease Social History household members: spouse Smoking Status: Former smoker alcohol intake: current Assessment & Plan Post-op Postoperative Procedures: Procedures Operation Date: 10/28/22 12:00 Actual Procedure Side Surgeon p Amputation toe Left Leroy Dennis MD Operation Date: 11/01/22 15:15 <No data on this case meets the specified criteria> Postoperative day: 2 Postoperative status narrative: Stable status post left 1st toe amputation Postoperative plan narrative: Continue wound VAC Nonweightbearing left lower extremity Possible return to OR November 01
[2022-10-30] MEDS: ASPIRIN EC 81 MG TABLET PO (09:24)
[2022-10-30] MEDS: INSULIN LISPRO 100 UNIT/ML 3ML VIAL SUBCUT ×6 (09:24→17:32)
[2022-10-30] MEDS: FERROUS SULFATE 325 MG TABLET PO (09:24)
[2022-10-30] MEDS: lisinopriL 10 MG TABLET PO (09:24)
[2022-10-30] MEDS: MAGNESIUM SULFATE 4 GM/100 ML PIGGYBACK IV (09:25)
--- NOTE | 2022-10-30 11:20 | CM.DPNOTE ---
DCP Note Patient discussed in multi-disciplinary rounds this morning. Patient expected to return to the OR Friday, pending blood cultures, possible left BKA Met w/patient to review DCP; patient sounds and appears irritated this morning Patient plans to discharge home. Patient tells this MINISTER he will discharge home alone and says he plans to drive himself to/from work. Encouraged patient to consider a plan in which people on [place] can assist him. 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 Patient expected to return to the OR Friday, procedure unknown. Course of abx unknown at this time CM team following closely to assist in coordination of DCP JW
[2022-10-30] MEDS: CEFAZOLIN 2 GM/100 ML PREMIX 100 ML IV (15:18)
[2022-10-30] MEDS: OXYCODONE IR 5 MG TABLET PO (15:23)
--- NOTE | 2022-10-30 16:29 | PT.IIE ---
Current Diagnoses Sepsis, unspecified organism (10/28/22) Surgery Performed Operation Date: 10/28/22 12:00 Actual Procedures p Amputation toe(Left) - Leroy Dennis MD Operation Date: 11/01/22 15:15 <No data on this case meets the specified criteria> Surgical History (Last Reviewed 10/30/22 @ 07:51 by Sky Pereira PA-C) No pertinent past surgical history Medical History (Last Reviewed 10/30/22 @ 07:51 by Sky Pereira PA-C) ADHD (~1978) Alcoholism in remission Essential hypertension (01/27/17) Hematuria Hyperlipidemia associated with type 2 diabetes mellitus Hypertensive emergency Obesity (BMI 30.0-34.9) Type 2 diabetes mellitus Physical Therapy Inpatient Evaluation/Re-Eval M1 PT/OT-IP Prior Functional Status Start: 10/30/22 18:10 Freq: NEEDED Status: Active Protocol: Document 10/30/22 16:29 DLM (Rec: 10/30/22 18:24 DLM [id number]) Medical Review Prior Functional Status Medical History Reviewed Yes Diet/Fluid Consistency Regular Communication WNL Mobility and Gait Independent without device Activities of Daily Living and IADL's Independent, drives a truck, has a dog, works a lot of hours at his [employer] business Social History Household Members spouse Living Arrangements Apartment/Condo Number of Floors (Floors) One Floor Number of Stairs To Enter/Railing? 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 [address] [facility] M2 PT-IP Current Condition Start: 10/30/22 18:10 Freq: NEEDED Status: Active Protocol: Document 10/30/22 16:29 DLM (Rec: 10/30/22 18:24 DLM [id number]) Physical Therapy Current Condition Current Condition Evaluation Date 10/30/22 Treatment Diagnosis right great toe amputation with infection, impaired gait Onset Date 10/28/22 M3 PT-IP Subjective Start: 10/30/22 18:10 Freq: NEEDED Status: Active Protocol: Document 10/30/22 16:29 DLM (Rec: 10/30/22 18:24 DLM [id number]) Subjective Physical Therapy Visit Type Type Initial Evaluation Visit Start Time 16:00 Visit Stop Time 16:29 Total Visit Minutes 29 Number of SVP GROUP DIRECTOR Visits 0 Physical Therapy Visit Comments Patient Comments He can sit at work as much as needed. He plans to use a rolling chair at work to decrease his walking. Patient Goals He wants to discharge home M4 PT-IP Mobility and Gait Start: 10/30/22 18:10 Freq: NEEDED Status: Active Protocol: Document 10/30/22 16:29 DLM (Rec: 10/30/22 18:24 DL [id number]) PT-Bed Mobility Assessment Rolling Level of Assist Independent Supine to Sit Supine to Sit Independent Sit to Supine Sit to Supine Independent Scooting Scooting to Edge of Bed Independent Scooting Up and Down in Bed Independent PT-Transfer Assessment Sit to and From Stand Sit to and from Stand Standby Assistance,Use of Upper Extremities Equipment Transfer Assistive Device Front Wheeled Walker Transfers Transfer Destination Bed,Toilet Transfer Technique Stand Step Pivot Transfer Ability Level of Assist Standby Assistance,Use of Upper Extremities Comments Mobility Comments he can stay NWB on his left LE in standing Gait Assessment Gait Gait Assistance Required: Standby Assistance Distance (Feet) 10 Able to Maintain Weight Bearing Status Yes During Gait Assistive Devices Assistive Device Front Wheeled Walker Factors Limiting Gait Function Factors Limiting Gait Function Decreased Activity Tolerance, Pain,Poor Balance Comments Gait Comments he can stay NWB on left LE, pt also has wound on right great toe, he needs assist to manage his IV and wound vac during mobility, he was able to ambulate to and from the toilet Stair Climbing Assessment Comments Stair Climbing Comments he report no stairs at home PT-Balance Assessment Sitting Balance and Reactions Static Sitting Balance Ability Normal Dynamic Sitting Balance Ability Normal Standing Balance and Reactions Static Standing Balance Ability Good Dynamic Standing Balance Ability Fair Device Used FWW M5 PT-IP Objective Assessments Start: 10/30/22 18:10 Freq: NEEDED Status: Active Protocol: Document 10/30/22 16:29 DL (Rec: 10/30/22 18:24 DL [id number]) Orientation Orientation/Cognition Level of Alertness Alert Orientation Name,Age,Birthday,Month,Date, Year,Day of Week,Place, Situation Language Function Ability No Deficits Noted Safety Awareness Understands Safety Issues Memory Description No Deficits Noted Comments he is resistant to some safety suggestions Gross Range of Motion Upper Extremity ROM Assessment Within Functional Limits Lower Extremity ROM Assessment Left Impaired Impairments left foot s/p amputation and wound with wound vac Strength Upper Extremity Strength Assessment Within Functional Limits Lower Extremity Strength Assessment Left Impaired Ankle not tested due to wound Coordination Assessment Gross Coordination Gross Coordination WNL Sensation Assessment Sensation Gross Sensation Right LE Impaired,Left LE Impaired Muscle Tone Muscle Tone WNL Yes M6 PT-IP Treatment Start: 10/30/22 18:10 Freq: NEEDED Status: Active Protocol: Document 10/30/22 16:29 DLM (Rec: 10/30/22 18:24 DLM [id number]) Physical Therapy Treatment Education Education Provided Safety Other Treatments Other Treatment Performed discussed home equipment needs with pt, he does not want a wheelchair but is open to using a knee scooter M7 PT-IP Assessment and Plan Start: 10/30/22 18:10 Freq: NEEDED Status: Active Protocol: Document 10/30/22 16:29 DLM (Rec: 10/30/22 18:24 DLM [id number]) PT Summary Assessment and Plan Potential Rehabilitation Potential Good Status of Condition at Evaluation Unstable Summary Impairments Pain,ROM,Strength,Balance, Sensation,Gait,Activity Tolerance Assessment Summary Gutierrez is alert and up to toilet with nursing. He needs assistance for his wound vac and IV during mobility. Pt is able to stay NWB on left foot during gait with the FWW. Pt has wound on right great toe that is at risk during gait. He does not want to use a wheelchair at discharge but will consider other options like a knee scooter. Will continue to assess him for discharge planning as his medical condition progresses. Pt is refusing SNF and wants to discharge home. Concerned about the risk of right foot breakdown if he tries to stand or ambulate too much while NWB on left foot. Will continue to look for ways to protect right foot to allow for safe mobility/gait. Goals Bed Mobility Goal Independent Transfer Goal Independent,Front Wheeled Walker Gait Goal Independent,Front Wheel Walker Gait Distance 50 feet Days to Meet Goals 7 Frequency of Treatment Frequency Of Treatment Once a Day Treatment Plan Physical Therapy Treatment Plan Gait Training,Therapeutic Exercise,Post Op Education, Discharge Planning, Neuromuscular Re-ed Other Recommendations and Next Treatment home equipment needs Focus Precautions Other Precautions wound vac left foot Weight Bearing Status Weight Bearing Status Non-Weight Bearing Allowed Weight Bearing Amount (enter % left foot or #) (%) Recommendations To Nursing Amount of Assist Needed Standby Assistance Discharge Recommendations PT Discharge Recommendations Home vs SNF Other Discharge Recommendations pt is refusing SNF, wants to go home Equipment Needed for Home Before continue to assess Discharge Transportation Needs at Discharge Private Vehicle
[2022-10-30] MEDS: HYDROMORPHONE 1 MG INJ IV (16:57)
--- NOTE | 2022-10-30 17:32 | PM.DS.1 ---
History of Present Illness History of Present Illness Date Patient Seen: 10/30/22 Time Patient Seen: 15:00 Chief complaint: infected wound/back injury/blood infection Narrative: This is a 52 year old male with PMH of HTN, DM2, HLD, obesity, gout who presented with L toe infection. He reports a diabetic ulcer on that foot for the past few weeks and came to the ER and was to be admitted on 10/23 but left due to his dog being in his car and business obligations. Blood cultures were positive and patient was called but did not return until late yesterday evening. Over the last 2-3 days he has noticed worsening swelling, and redness over his left 1st toe which began tracking up his left foot as well. He reports uncontrolled high blood sugars over the past few weeks, as well as polyuria but no polydipsia. He denies melena, or hematochezia. Today he began having fever and chills. He denies chest pain, abdominal pain, nausea, vomiting, shortness of breath. In the emergency room, his vital signs were unremarkable. Lab evaluation was notable for a microcytic anemia with hemoglobin of 6.3, creatinine of 1.61, much improved from 2.6 a few days ago when he presented to the emergency room. Repeat blood cultures were drawn. Chemistries showed a sodium of 125, corrected to 134 with glucose of 457. CO2 was 19. Mg 1.3, A1c was 10.8. Iron panel showed Iron <10, 5% saturation, with transferrin of 140. Troponin was negaitve. Procal was 2.58. Imaging showed probable osteomyelitis of the L 1st toe. Patient was ordered for 2U PRBC, taken to the OR for amputation by orthopedic surgery, he was seen after surgery. Discharge Providers Provider Date of admission: 10/28/22 10:55 Discharge Date: 10/30/22 Primary care physician: Giorgi Lozada MD Consults: 10/28/22 10:02 Consult to Orthopedic Surgery Stat Comment: Consulting Provider: Leroy Dennis Reason for consultation: osteo Has provider been notified: Yes 10/28/22 14:53 Consult to Dietitian, Adult Routine Comment: Reason For Exam: diabetic, admission nutrional exam protocol 10/29/22 17:56 Consult to Physical Therapy Evaluate & Treat Comment: nonWB LLE Physician Instructions: Evaluate and Treat Discharge provider: Neil Messer, DO Summary Hospital Course Discharge Diagnosis: 1. Sepsis secondary to Strep intermedius and MSSA bacteremia from L 1st toe osteomyelitis, sepsis resolved ?- SOFA score of 2 based on creatinine of 2.6 from 10/23 lab evaluation. - on unasyn 3g q6 hours initially, cultures have returned from 10/23 and will narrow to ancef 2 g q8 hours based on sensitivities of MSSA and strep intermedius. ?- wound culture 10/23 with strep intermedius and GPC which are likely MSSA, - blood cultures 10/23 with strep intermedius and MSSA, repeat blood cultures on 10/27 negative at 48 hours ?- appreciate orthopedic surgery, s/p L 1st toe ray amputation and wound vac in place. Plan to return to OR as may still need BKA if infection tracking up. ?- TTE negative for endocarditis, spoke with ID at [facility] who recommended transfer for VIDAL and ID consultation ?- continue wound vac 2. type 2 diabetes, uncontrolled ?- A1c >10%. Only on metformin and glipizide which were held. ?- lantus increased to 25 U due to hyperglycemia, and continue sliding scale. Patient is agreeable to discharge home on insulin, interested in diabetes education, appreciate dietary consultation. ?- diabetic diet. 3. DARIEL, resolved ?- likely due to dehydration from hyperglycemia, sepsis. Cr now normal. ?- continue to follow daily. 4. Acute on chronic anemia, present on admission, iron deficiency ?- no obvious signs or symptoms of bleeding. Previous unremarkable colonoscopy except for hemorrhoids. S/p 2 U PRBC transfusion, with improvement to Hgb of 8. ?- consider EGD depending on trend. Consider PPI. 5. HTN ?- continue home lisinopril 6. HLD ?- on pravastatin, held as not on formulary 7. E. faecalis bacteriuria, prior to admission ?- leukocyte esterase negative and patient denies symptoms ?- likely contaminant per ID 8. Hypomagnesemia, acute ?- Mg 1.3, repleted IV in the ER. Slight improvement to 1.5 and given additional mag. ?- monitor and replete 9. Obesity ?-The patient is at much higher risk for medical and surgical complications because of his obesity.? This increases the difficulty and complexity of medical and surgical interventions and increases the chances of poor outcomes such as morbidity and mortality - appreciate dietary consultation as discussed above. 10. Hyponatremia with element of pseudohyponatremia -Na 132 corrected due to hyperglycemia -monitor and correct sugars Hospital Course: Admitted for worsening necrotic 1st L toe and sepsis which improved with amputation on 10/28 by ortho and IV abx. Blood cultures growing MSSA and strep intermedius so rocephin and vanc changed to ancef 2g q8h. TTE negative for endocarditis. ID recommended transfer to [facility] for VIDAL and ID consultation. Spoke with Dr. Sanchez podiatry and Dr. Srikanth colbert who can see patient for possible further intervention of left foot, as ortho at [facility] planning to take back to OR for wound closure or BKA if infection tracking up leg. Patient has wound vac in place on left foot. BG were elevated up to 500 and improved to 200's on lantus 25u nightly. Time Spent with Patient Time spent: Greater than 30 minutes Exam Vital Signs (past 8 hours): - 10/30/22 12:05 10/30/22 17:03 Temperature 98.1 F 97.8 F Pulse Rate 77 75 Respiratory Rate 16 16 Blood Pressure 134/70 121/69 Pulse Oximetry 95 94 Oxygen Flow Rate 0 0 Oxygen Delivery Method Room Air Oxygen Flow Rate 0 Narrative Exam Narrative: General:? Patient is well developed and well nourished, in no distress at this time. Slight pallor. Tearful. HEENT:? Normocephalic, atraumatic, extraocular muscles intact, oral pharynx is clear and mucous membranes are moist. Neck: supple and symmetric, trachea is midline, no cervical adenopathy. Negative for JVD Chest:? Normal AP diameter and contour without kyphoscoliosis, no tachypnea, equal chest rise bilaterally. Lungs:? CTA b/l no wheezing rhonchi or rales. Cardio:?RRR no m/r/g. Abdomen: S NT ND. Musculoskeletal:? Muscle strength and tone are equal within normal limits. New R 1st toe amputation with wound vac in place. Extremities: Trace edema LLE with mild ankle swelling. No cyanosis or clubbing. Skin:? RLE cellulitis similar extension past ankle but less erythematous and less warmth today. Neuro:? Alert, oriented, no focal deficits. Psych:? Patient has a well-kept appearance, slightly flat affect, mental status attitude thought context and judgment are appropriate for age. Objective Labs 10/30/22 05:00 10/30/22 05:00 Labs: Laboratory Results - last 24 hr 10/30/22 10/30/22 05:00 05:00 WBC 5.7 RBC 2.86 L Hgb 7.9 L Hct 23.3 L MCV 81.4 MCH 27.6 MCHC 33.9 RDW 16.6 H Plt Count 376 Neut % (Auto) 69.9 Lymph % (Auto) 18.1 L Smith % (Auto) 9.0 Eos % (Auto) 2.3 Baso % (Auto) 0.7 Neut # (Auto) 4000 Lymph # (Auto) 1000 L Smith # (Auto) 500 Eos # (Auto) 100 Baso # (Auto) 0 Sodium 130 L Potassium 4.3 Chloride 100 Carbon Dioxide 20 L BUN 21 H Creatinine 1.09 Estimated GFR > 60 BUN/Creatinine Ratio 19.3 Glucose 237 H Calcium 8.4 Magnesium 1.5 L Total Bilirubin 0.2 AST 38 ALT 58 H Alkaline Phosphatase 109 Total Protein 6.0 L Albumin 2.6 L Globulin 3.4 Albumin/Globulin Ratio 0.8 L [facility] Medical History ADHD (~1978) Alcoholism in remission Essential hypertension (01/27/17) Hematuria Hyperlipidemia associated with type 2 diabetes mellitus Hypertensive emergency Obesity (BMI 30.0-34.9) Type 2 diabetes mellitus Surgical History No pertinent past surgical history Family History Mother Diabetes mellitus History of heart disease Hypertension Grandfather Cancer Hypertension Grandmother History of heart disease Grandfather Hypertension History of heart disease Social History household members: spouse Smoking Status: Former smoker alcohol intake: current Discharge Plan Discharge Plan Patient Disposition: [facility] Other facility: [facility] Discharge Data Primary Care Provider: Giorgi Lozada
--- NOTE | 2022-10-30 19:25 | PC.NURSE ---
Transfer: Report called to Fahad at [facility]. Reviewed hospital course, skin condition, amp of great toe, and wound vac. Occupational Health Nurse Manager to line installation supervisor to was decided to clamp the Wound vac here off and they will have a wound vac waiting for him over there. Fahad admitting nurse is aware. Reveiwed labs/Blood sugars. Pt got a dilaudid prior to transport. Questions answered. Report given to amb crew. Again reviewed hospital course. Questions answered. Pt transported to [facility].
--- NOTE | 2022-10-31 10:55 | PM.OP.1 ---
Operative Date/Time/Diagnoses Date of procedure: 10/28/22 Time of procedure: 10:00 Pre-op diagnosis: Left necrotic great Post-op diagnosis: same Procedure & Clinicians Procedure: Partial 1st ray amputation left foot Same procedure as scheduled: Yes Indications: This is a 52-year-old male with uncontrolled type 2 diabetes who presented to the emergency department with a necrotic 1st ray as well as ascending cellulitis. The great toe was deemed to be unsalvageable and thus for infection control, he was indicated for a partial 1st ray amputation. Surgeon: Leroy Dennis Click Yes if Unassisted: Yes Anesthesia Type: General Operative Notes Findings: Necrosis and purulence throughout the 1st ray tracking up into the ankle Specimen(s): other (Bone for cultures.) Estimated Blood Loss (mL): 5 Blood products transfused: none Tourniquet time (min): 20 Procedure in detail: Patient was seen in the preoperative holding area. We discussed the risks and the benefits of surgery again. Given that his left great toe was unsalvageable and we needed to control the infection he was indicated for 1st ray partial amputation. He agreed to the risks and his left lower extremity was marked with my initials. He was brought back to the operating room and placed supine on the operating table. We continued his previously begun antibiotics. Time-out was performed in my left lower extremity initials were noted. Underwent smooth induction of anesthesia. An Esmarch tourniquet was applied at the level of the ankle. I began by excising the necrotic tissue and disarticulated the great toe at the metatarsophalangeal joint. Gross purulence was noted and this was irrigated. The bone was taken for cultures. I then tracked the purulence proximally and noted that it was spread throughout several parts of the foot and potential tracking to the ankle. A partial amputation was then performed of the metatarsal using a sagittal saw. The edges were smoothed. The foot was thoroughly irrigated at this point. Given the non resolution of his purulence, I elected to place a wound VAC instead of primary closure. Plan was to go back in 2-3 days for re-evaluation after antibiotics had taken their course. One black sponge was used. This was hooked up to suction and good seal was noted. He was taken back to the postoperative recovery unit in good condition and woke up from anesthesia without any complications. Complications: none Post-operative Condition: stable Disposition: PACU Plan for aftercare: Plan to keep the negative pressure wound VAC on until 2nd look.
== END 2022-10-30 18:45 | disposition short-term general hospital (02) | DRG 854 ==
LOC: ED 10-28 09:01 → AC 10-28 10:56
PROVIDERS: Emergency Medicine; Orthopaedic Surgery; Admitting Provider Internal Medicine; Emergency Provider Emergency Medicine; PCP Student in an Organized Health Care Education/Training Program; Referring Provider Emergency Medicine; Visit Provider Internal Medicine
PROC: 0Y6Q0Z0 Detachment at Left 1st Toe, Complete, Open Approach (ICD-10-PCS; CPT 26951; principal; 2022-10-28 12:00)
DX: A41.01 Sepsis due to Methicillin susceptible Staphylococcus aureus (principal); E11.52 Type 2 diabetes mellitus with diabetic peripheral angiopathy with gangrene; M86.9 Osteomyelitis, unspecified; N17.9 Acute kidney failure, unspecified; I96 Gangrene, not elsewhere classified; E11.69 Type 2 diabetes mellitus with other specified complication; B95.4 Other streptococcus as the cause of diseases classified elsewhere; D50.9 Iron deficiency anemia, unspecified; I10 Essential (primary) hypertension; E78.5 Hyperlipidemia, unspecified; N30.90 Cystitis, unspecified without hematuria; B96.89 Other specified bacterial agents as the cause of diseases classified elsewhere; E83.42 Hypomagnesemia; E66.9 Obesity, unspecified; E11.65 Type 2 diabetes mellitus with hyperglycemia; Z68.34 Body mass index [BMI] 34.0-34.9, adult; Z20.822 Contact with and (suspected) exposure to COVID-19; Z87.891 Personal history of nicotine dependence; Z79.84 Long term (current) use of oral hypoglycemic drugs
CPT/HCPCS: 36415; 36430; 71045; 73630; 80053; 81003; 81015; 82009; 82550; 82553; 82805; 82962; 83036; 83540; 83550; 83605; 83690; 83735; 84145; 84484; 85014; 85018; 85025; 85651; 86140; 86850; 86900; 86901; 87040; 87070; 87075; 87077; 87086; 87176; 87186; 87205; 87635; 93005; 93306; 96365; 96366; 96367; 96368; 96372; 97162; 99284; 99285; C9803; P9016; J0295; J0690; J0692; J0696; J1170; J1815; J2405; J2704; J3475

== ENCOUNTER → 2024-04-30 08:46 | Outpatient (CLI) | payer OTHER, MEDICAID, SELFPAY ==
[2022-10-28 14:49] VITALS: BMI 34.0
[2024-04-30 18:05] LABS: Add Manual Diff / Slide Review NO; Basophils Absolute Auto 0 /uL (0-100); Basophils Percent Auto 0.7 % (0-2); Eosinophils Absolute Auto 100 /uL (0-450); Eosinophils Percent Auto 2.1 % (2-4); Hemoglobin 8.1 g/dL (13.5-17.5); Lymphocytes Absolute Auto 1700 /uL (1100-4500); Lymphocytes Percent Auto 25.8 % (25-40); Mean Corpuscular HGB Conc 33.7 % (30-36); Mean Corpuscular Hemoglobin 31.3 PG (26-34); Mean Corpuscular Volume 92.8 fL (80-100); Monocytes Absolute Auto 500 /uL (0-900); Monocytes Percent Auto 8.6 % (3-14); Neutrophils Absolute Auto 4000 /uL (1500-7000); Neutrophils Percent Auto 62.8 % (50-75); Platelet Count 227 X10^3/uL (150-400); Red Blood Cell Count 2.59 X10^6/uL (4.5-5.9); Red Cell Distribution Width 15.3 % (11.6-14.8); White Blood Cell Count 6.4 X10^3/uL (4.5-11.0)
[2024-04-30 18:23] LABS: Alanine Aminotransferase 18 IU/L (<50); Albumin 4.2 g/dL (3.5-5.0); Albumin Globulin Ratio 1.4 (1.0-2.8); Alkaline Phosphatase 47 U/L (38-126); Aspartate Aminotransferase 22 IU/L (17-59); BUN Creatinine Ratio 21.9 (6-22); Bilirubin Total 0.4 mg/dL (0.2-1.3); Blood Urea Nitrogen 32 mg/dL (9-20); Calcium 9.8 mg/dL (8.4-10.2); Carbon Dioxide 18 mmol/L (22-32); Chloride 111 mmol/L (98-107); Cholesterol 231 mg/dL (140-199); Estimated Glomerular Filt Rate 56 mL/min (>60); Globulin 3.1 g/dL (1.7-4.1); Glucose 110 mg/dL (70-100); HDL Cholesterol 37 mg/dL (40-60); HEMOLYSIS 17 (0-50); LDL Cholesterol Calculated 141 mg/dL (<100); Potassium 5.1 mmol/L (3.4-5.1); Sodium 138 mmol/L (137-145); Total Protein 7.3 g/dL (6.3-8.2); Triglycerides 267 mg/dL (35-150)
[2024-04-30 19:42] LABS: Microalbumin Urine Random 6.8 mg/dL (0-1.6)
== END ==
PROVIDERS: PCP Family Medicine; Visit Provider Family Medicine
DX: E11.621 Type 2 diabetes mellitus with foot ulcer (principal); L97.509 Non-pressure chronic ulcer of other part of unspecified foot with unspecified severity; E11.42 Type 2 diabetes mellitus with diabetic polyneuropathy; E11.69 Type 2 diabetes mellitus with other specified complication; I10 Essential (primary) hypertension; E78.5 Hyperlipidemia, unspecified
CPT/HCPCS: 80053; 80061; 82043; 82570; 85025

== ENCOUNTER → 2024-06-11 14:19 | Outpatient (CLI) | payer OTHER, MEDICAID, SELFPAY ==
[2022-10-28 14:49] VITALS: BMI 34.0
[2024-06-11 20:05] LABS: Hematocrit 28.9 % (41-53); Hemoglobin 9.8 g/dL (13.5-17.5); Mean Corpuscular HGB Conc 33.9 % (30-36); Mean Corpuscular Hemoglobin 30.3 PG (26-34); Mean Corpuscular Volume 89.3 fL (80-100); Platelet Count 257 X10^3/uL (150-400); Red Blood Cell Count 3.24 X10^6/uL (4.5-5.9); Red Cell Distribution Width 14.2 % (11.6-14.8); White Blood Cell Count 5.6 X10^3/uL (4.5-11.0)
[2024-06-11 20:09] LABS: HEMOLYSIS < 15 (0-50); Iron 70 ug/dL (49-181)
[2024-06-11 20:11] LABS: Hemoglobin A1C% w Est Avg Glu 6.3 % (4.0-6.0)
[2024-06-11 20:22] LABS: Percent Iron Saturation 18 % (20-50); Total Iron Binding Capacity 382 ug/dL (261-462); Transferrin 294 mg/dL (206-381)
[2024-06-11 20:34] LABS: INR 0.9 (0.9-1.3); Prothrombin Time 10.7 SECONDS (9.4-12.5)
[2024-06-11 20:37] LABS: PTT Partial Thromboplastin Tim 25 SECONDS (25.1-36.5)
[2024-06-11 20:39] LABS: Prostate Specific Antigen Scrn 0.975 ng/mL (0.1-4.0)
[2024-06-11 20:43] LABS: Ferritin 34 ng/mL (18-464)
[2024-06-11 20:52] LABS: RBC Morphology Normal Morphology; Total Cells Counted 100
[2024-06-11 20:58] LABS: Vitamin B12 Reflex MMA if <400 493 pg/mL (239-931)
[2024-06-16 10:04] LABS: Neutrophils Absolute Manual 3472 /uL (3000-5900)
== END ==
PROVIDERS: PCP Family Medicine; Referring Provider Family Medicine; Visit Provider Family Medicine
DX: E11.9 Type 2 diabetes mellitus without complications (principal); I10 Essential (primary) hypertension; D64.9 Anemia, unspecified; E11.621 Type 2 diabetes mellitus with foot ulcer; L97.509 Non-pressure chronic ulcer of other part of unspecified foot with unspecified severity; Z12.5 Encounter for screening for malignant neoplasm of prostate; E11.29 Type 2 diabetes mellitus with other diabetic kidney complication; R80.9 Proteinuria, unspecified
CPT/HCPCS: 82607; 82728; 82746; 83036; 83540; 83550; 85025; 85610; 85730; G0103

== ENCOUNTER → 2024-07-27 09:33 | Outpatient (CLI) | payer OTHER, SELFPAY ==
[2022-10-28 14:49] VITALS: BMI 34.0
--- NOTE | 2024-07-27 09:36 | DI.US.S_ITS ---
PROCEDURE: US ABDOMEN COMPLETE INDICATIONS: ANEMIA, ELEVATED LFT TECHNIQUE: Real-time scanning was performed of the abdominal and retroperitoneal organs, with image documentation. COMPARISON: None. FINDINGS: Liver: The liver demonstrates enlarged size. The liver demonstrates generalized mildly increased echogenicity. This decreases ultrasound sensitivity for detection of hepatic masses. The main portal vein demonstrates normal size and demonstrates normal appearing, hepatopetal flow. Gallbladder: No findings of gallstones or sludge are seen. The gallbladder wall is not thickened, measuring 3 mm or less. No specific pericholecystic fluid is seen. The sonographic Apple sign is negative. Biliary ducts: Intrahepatic bile ducts are non-dilated. Extrahepatic bile duct caliber measures 4-5 mm. Normal is 6-7 mm or less in diameter, or 10 mm or less post-cholecystectomy. Pancreas: Visualized portions of the pancreas are sonographically normal. Spleen: The spleen is mildly enlarged, measuring 13.6 cm. Kidneys: Kidneys are normal in size and echotexture. Right kidney measures 12.5 cm long; left kidney measures 11.8 cm long. No hydronephrosis or nephrolithiasis. No solid masses. Aorta: Visualized aorta is normal in caliber at less than 3 cm. Iliacs: Proximal common iliac arteries are normal in caliber at less than 2.5 cm. IVC: Intrahepatic inferior vena cava is patent. Miscellaneous: No free abdominal fluid. IMPRESSION: Enlarged, mildly fatty infiltrated liver. The spleen is mildly enlarged at 13.6 cm. Dictated by: Remigio Squires M.D. on 07/27/2024 at 11:02 Approved by: Remigio Squires M.D. on 07/27/2024 at 11:03
[2024-07-27 11:16] LABS: Reticulocyte Count, Percent 1.2 % (0.9-2.6)
[2024-07-27 11:18] LABS: Add Manual Diff / Slide Review NO; Basophils Absolute Auto 0 /uL (0-100); Basophils Percent Auto 0.4 % (0-2); Eosinophils Absolute Auto 100 /uL (0-450); Eosinophils Percent Auto 0.7 % (2-4); Hematocrit 25.9 % (41-53); Hemoglobin 8.7 g/dL (13.5-17.5); Lymphocytes Absolute Auto 1600 /uL (1100-4500); Lymphocytes Percent Auto 15.5 % (25-40); Mean Corpuscular HGB Conc 33.6 % (30-36); Mean Corpuscular Hemoglobin 30.1 PG (26-34); Mean Corpuscular Volume 89.8 fL (80-100); Monocytes Absolute Auto 900 /uL (0-900); Monocytes Percent Auto 8.8 % (3-14); Neutrophils Absolute Auto 7700 /uL (1500-7000); Neutrophils Percent Auto 74.6 % (50-75); Platelet Count 217 X10^3/uL (150-400); Red Blood Cell Count 2.89 X10^6/uL (4.5-5.9); Red Cell Distribution Width 14.3 % (11.6-14.8); White Blood Cell Count 10.3 X10^3/uL (4.5-11.0)
[2024-07-27 11:53] LABS: HEMOLYSIS < 15 (0-50); Iron 27 ug/dL (49-181)
[2024-07-27 11:58] LABS: Alanine Aminotransferase 15 IU/L (<50); Albumin 4.1 g/dL (3.5-5.0); Albumin Globulin Ratio 1.6 (1.0-2.8); Alkaline Phosphatase 58 U/L (38-126); Aspartate Aminotransferase 20 IU/L (17-59); BUN Creatinine Ratio 13.9 (6-22); Bilirubin Total 0.5 mg/dL (0.2-1.3); Blood Urea Nitrogen 27 mg/dL (9-20); Calcium 9.4 mg/dL (8.4-10.2); Carbon Dioxide 22 mmol/L (22-32); Chloride 107 mmol/L (98-107); Estimated Glomerular Filt Rate 40 mL/min (>60); Globulin 2.6 g/dL (1.7-4.1); Glucose 91 mg/dL (70-100); HEMOLYSIS < 15 (0-50); Lactate Dehydrogenase 197 U/L (120-246); Potassium 4.8 mmol/L (3.4-5.1); Sodium 138 mmol/L (137-145); Total Protein 6.7 g/dL (6.3-8.2)
[2024-07-27 12:04] LABS: Percent Iron Saturation 8 % (20-50); Total Iron Binding Capacity 332 ug/dL (261-462); Transferrin 292 mg/dL (206-381)
[2024-07-27 12:18] LABS: Ferritin 43 ng/mL (18-464)
[2024-07-27 12:58] LABS: Erythrocyte Sedimentation Rate 65 MM/HR (0-15)
[2024-07-28 03:36] LABS: Haptoglobin 180 mg/dL (29-370)
== END ==
LOC: US 09:34
PROVIDERS: PCP Family Medicine; Referring Provider Family Medicine; Visit Provider Family Medicine
DX: E11.621 Type 2 diabetes mellitus with foot ulcer (principal); L97.509 Non-pressure chronic ulcer of other part of unspecified foot with unspecified severity; E11.29 Type 2 diabetes mellitus with other diabetic kidney complication; K76.0 Fatty (change of) liver, not elsewhere classified; R16.1 Splenomegaly, not elsewhere classified; R80.9 Proteinuria, unspecified; I10 Essential (primary) hypertension; D64.9 Anemia, unspecified; R79.89 Other specified abnormal findings of blood chemistry
CPT/HCPCS: 36415; 76700; 80053; 82728; 83010; 83540; 83550; 83615; 85025; 85045; 85651; 86140

== ENCOUNTER → 2024-08-18 13:10 | Outpatient (CLI) | payer OTHER, SELFPAY ==
[2022-10-28 14:49] VITALS: BMI 34.0
[2024-08-18 20:58] LABS: Creatinine Urine Random 135.94 mg/dL; Protein (Total) Urine Random 16 mg/dL (0-12); Protein Creatinine Ratio Urine 0.11 GRAM/24H
== END ==
PROVIDERS: PCP Family Medicine; Visit Provider Family Medicine
DX: N18.32 Chronic kidney disease, stage 3b (principal); E11.42 Type 2 diabetes mellitus with diabetic polyneuropathy; D50.9 Iron deficiency anemia, unspecified; E11.621 Type 2 diabetes mellitus with foot ulcer; L97.509 Non-pressure chronic ulcer of other part of unspecified foot with unspecified severity
CPT/HCPCS: 82570; 84156

== ENCOUNTER → 2024-10-22 13:42 | Outpatient (CLI) | payer OTHER, SELFPAY ==
[2022-10-28 14:49] VITALS: BMI 34.0
[2024-10-22 18:04] LABS: Add Manual Diff / Slide Review NO; Basophils Absolute Auto 0 /uL (0-100); Basophils Percent Auto 0.5 % (0-2); Eosinophils Absolute Auto 100 /uL (0-450); Eosinophils Percent Auto 1.2 % (2-4); Hematocrit 30.9 % (41-53); Hematocrit 32.2 % (41-53); Hemoglobin 10.2 g/dL (13.5-17.5); Hemoglobin 10.5 g/dL (13.5-17.5); Lymphocytes Absolute Auto 1600 /uL (1100-4500); Lymphocytes Percent Auto 26.7 % (25-40); Mean Corpuscular HGB Conc 32.7 % (30-36); Mean Corpuscular Hemoglobin 28.7 PG (26-34); Mean Corpuscular Volume 87.8 fL (80-100); Monocytes Absolute Auto 500 /uL (0-900); Monocytes Percent Auto 8.2 % (3-14); Neutrophils Absolute Auto 3800 /uL (1500-7000); Neutrophils Percent Auto 63.4 % (50-75); Platelet Count 236 X10^3/uL (150-400); Red Blood Cell Count 3.67 X10^6/uL (4.5-5.9); Red Cell Distribution Width 15.2 % (11.6-14.8); White Blood Cell Count 6.1 X10^3/uL (4.5-11.0)
[2024-10-22 18:17] LABS: BUN Creatinine Ratio 17.5 (6-22); Blood Urea Nitrogen 37 mg/dL (9-20); Calcium 10.3 mg/dL (8.4-10.2); Carbon Dioxide 20 mmol/L (22-32); Chloride 106 mmol/L (98-107); Estimated Glomerular Filt Rate 36 mL/min (>60); Glucose 215 mg/dL (70-100); HEMOLYSIS < 15 (0-50); Sodium 138 mmol/L (137-145)
[2024-10-22 18:18] LABS: Alanine Aminotransferase 19 IU/L (<50); Albumin 4.8 g/dL (3.5-5.0); Albumin Globulin Ratio 1.5 (1.0-2.8); Alkaline Phosphatase 67 U/L (38-126); Aspartate Aminotransferase 21 IU/L (17-59); BUN Creatinine Ratio 16.4 (6-22); Bilirubin Total 0.3 mg/dL (0.2-1.3); Blood Urea Nitrogen 35 mg/dL (9-20); Calcium 10.4 mg/dL (8.4-10.2); Carbon Dioxide 21 mmol/L (22-32); Chloride 105 mmol/L (98-107); Estimated Glomerular Filt Rate 36 mL/min (>60); Globulin 3.1 g/dL (1.7-4.1); Glucose 207 mg/dL (70-100); HEMOLYSIS < 15 (0-50); Sodium 139 mmol/L (137-145); Total Protein 7.9 g/dL (6.3-8.2)
[2024-10-22 18:20] LABS: Hemoglobin A1C% w Est Avg Glu 6.4 % (4.0-6.0)
[2024-10-22 18:23] LABS: Potassium 5.7 mmol/L (3.4-5.1)
[2024-10-22 18:28] LABS: Potassium 5.8 mmol/L (3.4-5.1)
[2024-10-22 18:42] LABS: Creatinine Urine Random 56.95 mg/dL; Protein (Total) Urine Random 11 mg/dL (0-12); Protein Creatinine Ratio Urine 0.19 GRAM/24H
== END ==
PROVIDERS: PCP Family Medicine; Visit Provider Student in an Organized Health Care Education/Training Program
DX: R80.9 Proteinuria, unspecified (principal); D70.9 Neutropenia, unspecified; D63.1 Anemia in chronic kidney disease; N05.9 Unspecified nephritic syndrome with unspecified morphologic changes; E11.22 Type 2 diabetes mellitus with diabetic chronic kidney disease; N18.30 Chronic kidney disease, stage 3 unspecified; D50.9 Iron deficiency anemia, unspecified
CPT/HCPCS: 80048; 80053; 82570; 83036; 84156; 85014; 85018; 85025

== ENCOUNTER → 2024-12-06 12:49 | Outpatient (CLI) | payer OTHER, SELFPAY ==
[2022-10-28 14:49] VITALS: BMI 34.0
[2024-12-06 18:56] LABS: BUN Creatinine Ratio 17.2 (6-22); Blood Urea Nitrogen 28 mg/dL (9-20); Calcium 9.2 mg/dL (8.4-10.2); Carbon Dioxide 22 mmol/L (22-32); Chloride 107 mmol/L (98-107); Estimated Glomerular Filt Rate 49 mL/min (>60); Glucose 134 mg/dL (70-99); HEMOLYSIS < 15 (0-50); Potassium 4.7 mmol/L (3.4-5.1); Sodium 140 mmol/L (137-145)
== END ==
PROVIDERS: PCP Family Medicine; Visit Provider Family Medicine
DX: E87.5 Hyperkalemia (principal); E11.22 Type 2 diabetes mellitus with diabetic chronic kidney disease; N18.30 Chronic kidney disease, stage 3 unspecified
CPT/HCPCS: 80048

== ENCOUNTER → 2025-01-10 11:48 | Outpatient (CLI) | payer OTHER, SELFPAY ==
[2022-10-28 14:49] VITALS: BMI 34.0
[2025-01-10 19:01] LABS: Hematocrit 30.8 % (41-53); Hemoglobin 10.5 g/dL (13.5-17.5)
[2025-01-10 19:07] LABS: BUN Creatinine Ratio 25.6 (6-22); Blood Urea Nitrogen 58 mg/dL (9-20); Calcium 9.5 mg/dL (8.4-10.2); Carbon Dioxide 14 mmol/L (22-32); Chloride 111 mmol/L (98-107); Estimated Glomerular Filt Rate 33 mL/min (>60); Glucose 103 mg/dL (70-99); HEMOLYSIS < 15 (0-50); Potassium 5.7 mmol/L (3.4-5.1); Sodium 141 mmol/L (137-145)
[2025-01-10 19:57] LABS: Creatinine Urine Random 60.37 mg/dL; Protein (Total) Urine Random 31 mg/dL (0-12); Protein Creatinine Ratio Urine 0.51 GRAM/24H
== END ==
PROVIDERS: PCP Family Medicine; Visit Provider Student in an Organized Health Care Education/Training Program
DX: N05.9 Unspecified nephritic syndrome with unspecified morphologic changes (principal); D70.9 Neutropenia, unspecified; D63.1 Anemia in chronic kidney disease; R80.9 Proteinuria, unspecified
CPT/HCPCS: 80048; 82570; 84156; 85014; 85018

== ENCOUNTER → 2025-01-24 11:34 | Outpatient (CLI) | payer OTHER, SELFPAY ==
[2022-10-28 14:49] VITALS: BMI 34.0
[2025-01-24 12:01] LABS: Appearance Urine UA CLEAR; Bilirubin Urine UA NEGATIVE (NEGATIVE); Color Urine UA YELLOW; Glucose Urine UA NEGATIVE (Negative); Ketones Urine UA NEGATIVE (NEGATIVE); Leukocyte Esterase Urine UA NEGATIVE (NEGATIVE); Nitrite Urine UA NEGATIVE (Negative); Occult Blood Urine UA 3+ (Negative); Protein Urine UA 2+ (Negative); Specific Gravity Urine UA 1.015 (1.000-1.035); Urobilinogen Urine UA 0.2 E.U./dL (0.2); pH Urine UA 6.5 (4.5-8.0)
[2025-01-24 12:12] LABS: Bacteria Urine None Seen; Culture Indicated Urine Cult Not Indicated; RBC Urine 10-30/HPF (0-5/HPF); Squamous Epithelial Cell Urine 0-1 /HPF (0-5/HPF); Urine Volume 10mL (spun); WBC Urine None Seen (0-5/HPF)
[2025-01-24 13:30] LABS: Alanine Aminotransferase 14 IU/L (<50); Albumin 3.9 g/dL (3.5-5.0); Albumin Globulin Ratio 1.3 (1.0-2.8); Alkaline Phosphatase 56 U/L (38-126); Aspartate Aminotransferase 18 IU/L (17-59); BUN Creatinine Ratio 15.9 (6-22); Bilirubin Total 0.4 mg/dL (0.2-1.3); Blood Urea Nitrogen 35 mg/dL (9-20); Calcium 9.2 mg/dL (8.4-10.2); Carbon Dioxide 22 mmol/L (22-32); Chloride 105 mmol/L (98-107); Estimated Glomerular Filt Rate 35 mL/min (>60); Glucose 106 mg/dL (70-99); HEMOLYSIS < 15 (0-50); Sodium 139 mmol/L (137-145); Total Protein 6.9 g/dL (6.3-8.2)
[2025-01-24 13:31] LABS: Potassium 5.4 mmol/L (3.4-5.1)
[2025-01-24 20:21] LABS: Hepatitis B Surface Antigen NEGATIVE s/c (NEGATIVE)
[2025-01-24 20:39] LABS: Hep C Virus Ab w/Reflex Quant NEGATIVE s/c (NEGATIVE)
[2025-01-25 01:36] LABS: Hepatitis B Core Antibody Negative (Negative); Hepatitis B Surf AB Quant <3.5 mIU/mL (Immunity>10)
[2025-01-25 04:12] LABS: Complement C3 147 mg/dL (82-167)
[2025-01-25 19:36] LABS: DNA (DS) Antibody <1 IU/mL (0-9)
== END ==
LOC: LAB 11:36
PROVIDERS: PCP Family Medicine; Referring Provider Student in an Organized Health Care Education/Training Program; Visit Provider Student in an Organized Health Care Education/Training Program
DX: B17.10 Acute hepatitis C without hepatic coma (principal); B19.10 Unspecified viral hepatitis B without hepatic coma; D89.89 Other specified disorders involving the immune mechanism, not elsewhere classified; L93.2 Other local lupus erythematosus; M31.30 Wegener's granulomatosis without renal involvement; M32.10 Systemic lupus erythematosus, organ or system involvement unspecified; N00.9 Acute nephritic syndrome with unspecified morphologic changes; N30.00 Acute cystitis without hematuria; N05.9 Unspecified nephritic syndrome with unspecified morphologic changes
CPT/HCPCS: 36415; 80053; 81001; 83516; 86038; 86160; 86225; 86256; 86704; 86706; 86803; 87340

== ENCOUNTER → 2025-02-09 10:38 | Outpatient (CLI) | payer OTHER, SELFPAY ==
[2022-10-28 14:49] VITALS: BMI 34.0
[2025-02-09 11:58] LABS: Protein (Total) Urine Random 62 mg/dL (0-12); Protein Creatinine Ratio Urine 0.60 GRAM/24H
[2025-02-09 12:05] LABS: Hematocrit 21.8 % (41-53); Hemoglobin 7.3 g/dL (13.5-17.5)
[2025-02-09 12:23] LABS: Blood Urea Nitrogen 37 mg/dL (9-20); Calcium 9.3 mg/dL (8.4-10.2); Carbon Dioxide 22 mmol/L (22-32); Chloride 104 mmol/L (98-107); Estimated Glomerular Filt Rate 34 mL/min (>60); Glucose 140 mg/dL (70-99); HEMOLYSIS < 15 (0-50); Phosphorous 4.0 mg/dL (2.5-4.5); Sodium 138 mmol/L (137-145)
[2025-02-09 12:24] LABS: Potassium 5.9 mmol/L (3.4-5.1)
== END ==
PROVIDERS: PCP Family Medicine; Referring Provider Student in an Organized Health Care Education/Training Program; Visit Provider Student in an Organized Health Care Education/Training Program
DX: N05.9 Unspecified nephritic syndrome with unspecified morphologic changes (principal); R80.9 Proteinuria, unspecified; D70.9 Neutropenia, unspecified; D63.1 Anemia in chronic kidney disease; E83.30 Disorder of phosphorus metabolism, unspecified; N25.81 Secondary hyperparathyroidism of renal origin
CPT/HCPCS: 36415; 80048; 82570; 83970; 84100; 84156; 85014; 85018